=== PATIENT | female | born 1940 | race Caucasian/White ===

== ENCOUNTER 2017-08-04 13:45 | Inpatient (IN) | payer MEDICARE ==
[2017-08-04 14:51] LABS: Urine Appearance Cloudy; Urine Blood Negative (Negative); Urine Color Yellow; Urine Ketones Negative (Negative); Urine Protein Negative (Negative); Urine Specific Gravity 1.013 (1.010-1.030); Urine Urobilinogen Negative (Negative)
[2017-08-04 15:04] LABS: ABS Basophils 0.1 10^3/ul (0-0.2); ABS Eosinophils 0 10^3/ul (0-0.6); ABS Lymphocytes 0.5 10^3/ul (1.0-4.8); ABS Monocytes 0.9 10^3/ul (0-0.8); ABS Neutrophils 10.8 10^3/ul (1.5-7.7); ABS Nucleated RBC 0 10^3/ul; Eosinophil % 0.2 % (0-6); Hematocrit 42 % (35-47); Hemoglobin 13.7 g/dl (12.0-16.0); Lymphocyte % 3.9 % (25-47); Mean Corpuscular HGB Conc 33 g/dl (31-36); Mean Corpuscular Hemoglobin 29 pg (27-31); Mean Corpuscular Volume 89 fL (80-97); Mean Platelet Volume 9.6 um3 (7.4-10.4); Nucleated Red Blood Cells % 0; Platelet Count 208 10^3/ul (150-450); Red Blood Count 4.66 10^6/ul (4.0-5.4); Red Cell Distribution Width 16 % (10.5-15); White Blood Count 12.3 10^3/ul (3.5-10.8)
[2017-08-04 15:13] LABS: INR 1.07 (0.77-1.02)
--- NOTE | 2017-08-04 15:38 | RAD ---
INDICATION: Shortness of breath. COMPARISON: Chest x-ray dated January 15, 2017 TECHNIQUE: Single AP portable view of the chest was obtained. FINDINGS: Image quality is compromised due to the relative inferiority of a portable chest x-ray. The heart and mediastinum exhibit normal size and contour. The pulmonary vasculature appears mildly engorged and indistinct relative to the previous chest x-ray. The lungs are otherwise grossly clear. Visualized bones are normal for the patient's age. IMPRESSION: Chest x-ray findings could be due to pulmonary edema
[2017-08-04] MEDS ORDERED: Acetaminophen TAB* 325 MG PO ONE (16:10)
[2017-08-04] MEDS ORDERED: NS 0.9% 1000 ML* 1,000 ML IV ONE ×2 (16:10)
--- NOTE | 2017-08-04 17:16 | ED ---
Macy Escobar Julia, scribed for Antonio Rooney MD on 08/04/17 at 1421 . Complex/Multi-Sys Presentation - HPI Summary HPI Summary: This patient is a 77 year old [facility] [place] due to weakness and a fall while transporting to a wheelchair in her [facility] lives. Her family states that the home recently informed them that she has been weak and has been using a wheelchair. Son states that she typically walks. He states that yesterday a cough developed and she seemed more alert then. Patient denies any pain. Reports SOB. Patient lives in fci due to "psychosis and delusions". History of hospitalizations for mental health tx. - History Of Current Complaint Chief Complaint: EDWeakness Time Seen by Provider: 08/04/17 14:10 Hx Obtained From: Patient Onset/Duration: Lasting Days Timing: Constant Location: Negative Associated Signs And Symptoms: Positive: Decreased Responsiveness, Weakness, SOB , Other - fall - Allergies/Home Medications Allergies/Adverse Reactions: Allergies Allergy/AdvReac Type Severity Reaction Status Date / Time bee venom protein (honey bee) Allergy Swelling Verified 08/04/17 14:04 Of Face,Lips,& Throat Penicillins Allergy Anaphylatic Verified 08/04/17 14:04 Shock shrimp Allergy Vomiting Verified 08/04/17 14:04 Home Medications: Home Medications Divalproex DR TAB(*) [Neda CLEARY TAB(*)] 250 mg PO QAM 08/04/17 [History Confirmed 08/04/17] Divalproex DR TAB(*) [Neda CLEARY(*)] 500 mg PO BEDTIME 08/04/17 [History Confirmed 08/04/17] FLUoxetine CAP* [PROzac CAP*] 10 mg PO QAM 08/04/17 [History Confirmed 08/04/17] OLANzapine TAB* [Zyprexa 10 MG TAB*] 15 mg PO BEDTIME 08/04/17 [History Confirmed 08/04/17] PMH/Surg Hx/FS Hx/Imm Hx Cardiovascular History: Reports: Hx Congestive Heart Failure, Hx Hypertension Denies: Hx Pacemaker/ICD Musculoskeletal History: Denies: Hx Rheumatoid Arthritis, Hx Osteoporosis Sensory History: Reports: Hx Contacts or Glasses, Hx Macular Degeneration Denies: Hx Hearing Aid Opthamlomology History: Reports: Hx Contacts or Glasses, Hx Macular Degeneration Psychiatric History: Reports: Hx Anxiety, Hx Schizophrenia, Hx Bipolar Disorder , Other Psychiatric Issues/Disorders - "psychosis" Denies: Hx Eating Disorder, Hx Panic Disorder, Hx of Violent Episodes Against Others - Cancer History Hx Chemotherapy: No Hx Radiation Therapy: No - Surgical History Surgery Procedure, Year, and Place: SHOULDER SURGERY AGE 26 Infectious Disease History: No Infectious Disease History: Denies: Hx Clostridium Difficile, Hx Hepatitis, Hx Human Immunodeficiency Virus (HIV), Hx of Known/Suspected MRSA, Hx Shingles, Hx Tuberculosis, Traveled Outside the [place] in Last 30 Days - Social History Alcohol Use: None Substance Use Type: Reports: None Smoking Status (MU): Never Smoked Tobacco Review of Systems Positive: Shortness Of Breath Negative: Myalgia Positive: Weakness All Other Systems Reviewed And Are Negative: Yes Physical Exam - Summary Physical Exam Summary: VITAL SIGNS: Reviewed. GENERAL: Patient is a obese elderly female who appears weak. Patient appears to be in respiratory distress on nasal cannula. HEAD AND FACE: No signs of trauma. No ecchymosis, hematomas or skull depressions. No sinus tenderness. EYES: PERRLA, EOMI x 2, No injected conjunctiva, no nystagmus. EARS: Hearing grossly intact. Ear canals and tympanic membranes are within normal limits. MOUTH: Oropharynx within normal limits. NECK: Supple, trachea is midline, no adenopathy, no JVD, no carotid bruit, no c- spine tenderness, neck with full ROM. CHEST: Symmetric, no tenderness at palpation LUNGS: Crackles in bilateral bases CVS: Regular rate and rhythm, S1 and S2 present, no murmurs or gallops appreciated. ABDOMEN: Soft, non-tender. No signs of distention. No rebound no guarding, and no masses palpated. Bowel sounds are normal. EXTREMITIES: FROM in all major joints, no edema, no cyanosis or clubbing. NEURO: Alert and oriented x 3. No acute neurological deficits. Speech is normal and follows commands. SKIN: Dry and warm Triage Information Reviewed: Yes Vital Signs On Initial Exam: Initial Vitals Temp Pulse Resp BP Pulse Ox 100.7 F 98 25 176/87 97 08/04/17 13:57 08/04/17 13:57 08/04/17 13:57 08/04/17 13:57 08/04/17 13:57 Vital Signs Reviewed: Yes Diagnostics - Vital Signs Vital Signs Temp Pulse Resp BP Pulse Ox 08/04/17 14:01 97 29 97 08/04/17 13:59 103 176/87 98 08/04/17 13:57 100.7 F 98 25 176/87 97 - Laboratory Lab Results: Lab Results 08/04/17 08/04/17 08/04/17 Range/Units 14:37 14:53 14:53 WBC 12.3 H (3.5-10.8) 10^3/ul RBC 4.66 (4.0-5.4) 10^6/ul Hgb 13.7 (12.0-16.0) g/dl Hct 42 (35-47) % MCV 89 (80-97) fL MCH 29 (27-31) pg MCHC 33 (31-36) g/dl RDW 16 H (10.5-15) % Plt Count 208 (150-450) 10^3/ul MPV 9.6 (7.4-10.4) um3 Neut % (Auto) 87.9 H (38-83) % Lymph % (Auto) 3.9 L (25-47) % Smith % (Auto) 7.6 H (0-7) % Eos % (Auto) 0.2 (0-6) % Baso % (Auto) 0.4 (0-2) % Absolute Neuts (auto) 10.8 H (1.5-7.7) 10^3/ul Absolute Lymphs (auto) 0.5 L (1.0-4.8) 10^3/ul Absolute Monos (auto) 0.9 H (0-0.8) 10^3/ul Absolute Eos (auto) 0 (0-0.6) 10^3/ul Absolute Basos (auto) 0.1 (0-0.2) 10^3/ul Absolute Nucleated RBC 0 10^3/ul Nucleated RBC % 0 ESR 53 H (0-40) mm/Hr INR (Anticoag Therapy) 1.07 H (0.77-1.02) APTT 26.1 (26.0-36.3) seconds Sodium (139-145) mmol/L Potassium (3.5-5.0) mmol/L Chloride (101-111) mmol/L Carbon Dioxide (22-32) mmol/L Anion Gap (2-11) mmol/L BUN (6-24) mg/dL Creatinine (0.51-0.95) mg/dL Est GFR ( Amer) (>60) Est GFR (Non-Af Amer) (>60) BUN/Creatinine Ratio (8-20) Glucose (70-100) mg/dL Lactic Acid (0.5-2.0) mmol/L Calcium (8.6-10.3) mg/dL Total Bilirubin (0.2-1.0) mg/dL AST (13-39) U/L ALT (7-52) U/L Alkaline Phosphatase (34-104) U/L Total Creatine Kinase (10-223) U/L Troponin I (<0.04) ng/mL C-Reactive Protein (< 5.00) mg/L B-Natriuretic Peptide ( - 100) pg/mL Total Protein (6.4-8.9) g/dL Albumin (3.2-5.2) g/dL Globulin (2-4) g/dL Albumin/Globulin Ratio (1-3) Urine Color Yellow Urine Appearance Cloudy Urine pH 7.0 (5-9) Ur Specific [place] 1.013 (1.010-1.030) Urine Protein Negative (Negative) Urine Ketones Negative (Negative) Urine Blood Negative (Negative) Urine Nitrate Positive A (Negative) Urine Bilirubin Negative (Negative) Urine Urobilinogen Negative (Negative) Ur Leukocyte Esterase Trace A (Negative) Urine WBC (Auto) 3+(>20/hpf) A (Absent) Urine RBC (Auto) 2+(6-10/hpf) A (Absent) Ur Squamous Epith Cells Present A (Absent) Urine Bacteria 1+ A (Absent) Urine Glucose Negative (Negative) Blood Type Antibody Screen 08/04/17 08/04/17 08/04/17 Range/Units 14:53 14:53 14:54 WBC (3.5-10.8) 10^3/ul RBC (4.0-5.4) 10^6/ul Hgb (12.0-16.0) g/dl Hct (35-47) % MCV (80-97) fL MCH (27-31) pg MCHC (31-36) g/dl RDW (10.5-15) % Plt Count (150-450) 10^3/ul MPV (7.4-10.4) um3 Neut % (Auto) (38-83) % Lymph % (Auto) (25-47) % Smith % (Auto) (0-7) % Eos % (Auto) (0-6) % Baso % (Auto) (0-2) % Absolute Neuts (auto) (1.5-7.7) 10^3/ul Absolute Lymphs (auto) (1.0-4.8) 10^3/ul Absolute Monos (auto) (0-0.8) 10^3/ul Absolute Eos (auto) (0-0.6) 10^3/ul Absolute Basos (auto) (0-0.2) 10^3/ul Absolute Nucleated RBC 10^3/ul Nucleated RBC % ESR (0-40) mm/Hr INR (Anticoag Therapy) (0.77-1.02) APTT (26.0-36.3) seconds Sodium 136 L (139-145) mmol/L Potassium 4.3 (3.5-5.0) mmol/L Chloride 99 L (101-111) mmol/L Carbon Dioxide 27 (22-32) mmol/L Anion Gap 10 (2-11) mmol/L BUN 18 (6-24) mg/dL Creatinine 1.15 H (0.51-0.95) mg/dL Est GFR ( Amer) 59.2 (>60) Est GFR (Non-Af Amer) 46.0 (>60) BUN/Creatinine Ratio 15.7 (8-20) Glucose 144 H (70-100) mg/dL Lactic Acid 1.1 (0.5-2.0) mmol/L Calcium 9.0 (8.6-10.3) mg/dL Total Bilirubin 0.40 (0.2-1.0) mg/dL AST 14 (13-39) U/L ALT 12 (7-52) U/L Alkaline Phosphatase 106 H (34-104) U/L Total Creatine Kinase 73 (10-223) U/L Troponin I 0.01 (<0.04) ng/mL C-Reactive Protein 54.10 H (< 5.00) mg/L B-Natriuretic Peptide ( - 100) pg/mL Total Protein 8.2 (6.4-8.9) g/dL Albumin 3.5 (3.2-5.2) g/dL Globulin 4.7 H (2-4) g/dL Albumin/Globulin Ratio 0.7 L (1-3) Urine Color Urine Appearance Urine pH (5-9) Ur Specific [place] (1.010-1.030) Urine Protein (Negative) Urine Ketones (Negative) Urine Blood (Negative) Urine Nitrate (Negative) Urine Bilirubin (Negative) Urine Urobilinogen (Negative) Ur Leukocyte Esterase (Negative) Urine WBC (Auto) (Absent) Urine RBC (Auto) (Absent) Ur Squamous Epith Cells (Absent) Urine Bacteria (Absent) Urine Glucose (Negative) Blood Type O Positive Antibody Screen Negative 08/04/17 Range/Units 14:54 WBC (3.5-10.8) 10^3/ul RBC (4.0-5.4) 10^6/ul Hgb (12.0-16.0) g/dl Hct (35-47) % MCV (80-97) fL MCH (27-31) pg MCHC (31-36) g/dl RDW (10.5-15) % Plt Count (150-450) 10^3/ul MPV (7.4-10.4) um3 Neut % (Auto) (38-83) % Lymph % (Auto) (25-47) % Smith % (Auto) (0-7) % Eos % (Auto) (0-6) % Baso % (Auto) (0-2) % Absolute Neuts (auto) (1.5-7.7) 10^3/ul Absolute Lymphs (auto) (1.0-4.8) 10^3/ul Absolute Monos (auto) (0-0.8) 10^3/ul Absolute Eos (auto) (0-0.6) 10^3/ul Absolute Basos (auto) (0-0.2) 10^3/ul Absolute Nucleated RBC 10^3/ul Nucleated RBC % ESR (0-40) mm/Hr INR (Anticoag Therapy) (0.77-1.02) APTT (26.0-36.3) seconds Sodium (139-145) mmol/L Potassium (3.5-5.0) mmol/L Chloride (101-111) mmol/L Carbon Dioxide (22-32) mmol/L Anion Gap (2-11) mmol/L BUN (6-24) mg/dL Creatinine (0.51-0.95) mg/dL Est GFR ( Amer) (>60) Est GFR (Non-Af Amer) (>60) BUN/Creatinine Ratio (8-20) Glucose (70-100) mg/dL Lactic Acid (0.5-2.0) mmol/L Calcium (8.6-10.3) mg/dL Total Bilirubin (0.2-1.0) mg/dL AST (13-39) U/L ALT (7-52) U/L Alkaline Phosphatase (34-104) U/L Total Creatine Kinase (10-223) U/L Troponin I (<0.04) ng/mL C-Reactive Protein (< 5.00) mg/L B-Natriuretic Peptide 46 ( - 100) pg/mL Total Protein (6.4-8.9) g/dL Albumin (3.2-5.2) g/dL Globulin (2-4) g/dL Albumin/Globulin Ratio (1-3) Urine Color Urine Appearance Urine pH (5-9) Ur Specific [place] (1.010-1.030) Urine Protein (Negative) Urine Ketones (Negative) Urine Blood (Negative) Urine Nitrate (Negative) Urine Bilirubin (Negative) Urine Urobilinogen (Negative) Ur Leukocyte Esterase (Negative) Urine WBC (Auto) (Absent) Urine RBC (Auto) (Absent) Ur Squamous Epith Cells (Absent) Urine Bacteria (Absent) Urine Glucose (Negative) Blood Type Antibody Screen Result Diagrams: 08/04/17 14:53 08/04/17 14:53 Lab Statement: Any lab studies that have been ordered have been reviewed, and results considered in the medical decision making process. - Radiology CXR Radiology Interpretation Completed By: Radiologist - Chest x-ray findings could be due to pulmonary edema. ED Physician has reviewed this report. - EKG 1435 Cardiac Rate: NL EKG Rhythm: Sinus Rhythm - 97 BPM EKG Interpretation: no ST elevations EKG Comparison: No Significant Change - 08/03/2012 Complex Multi-Symp Course/Dx Assessment/Plan: Blood significant for WBCs of 12.3, there is no bands, sodium 136, creatinine 1.15, glucose 144, CRP of 54, urinalysis is positive for nitrates. Chest x-ray impression: Findings could be due to pulmonary edema. In the ED course the patient was given IV fluids, the patient was given Tylenol for the fever, she was given Rocephin for the UTI. I discussed my physical exam , and isnt associated with Dr. Deleon who accepted the patient for admission. Patient is hemodynamically stable. - Diagnoses Provider Diagnoses: UTI (urinary tract infection) - Physician Notifications Discussed Care Of Patient With: Mallory Deleon - hospitalist Time Discussed With Above Provider: 16:30 Instructed by Provider To: Admit As Inpatient Discharge - Sign-Out/Discharge Documenting (check all that apply): Discharge/Admit/Transfer - Discharge Plan Condition: Stable Disposition: ADMITTED TO [facility] Referrals: Antonio Jade MD [Primary Care Provider] - - Billing Disposition and Condition Condition: STABLE Disposition: Admitted to [facility] The documentation as recorded by the Macy john Julia accurately reflects the service I personally performed and the decisions made by me, Antonio Rooney MD.
[2017-08-04] MEDS ORDERED: NS 0.9% 1000 ML* 1,000 ML IV SCH (17:30)
[2017-08-04] MEDS ORDERED: hydrALAZINE IV* 20 MG/ML VIAL IV SLOW PU PRN (17:56)
[2017-08-04] MEDS: cefTRIAXone(*) 1 GM in NS 0.9% 50 ML* 50 ML IVPB SCH (18:10)
--- NOTE | 2017-08-04 19:32 | HP ---
CC: Dr. Trinity Li * HISTORY AND PHYSICAL: DATE OF ADMISSION: 08/04/17 PRIMARY CARE PROVIDER: Dr. Trinity Li. ATTENDING PHYSICIAN: Mallory Deleon MD * (dictated by Madisyn Stuart NP) CHIEF COMPLAINT: Fall and generalized weakness. HISTORY OF PRESENT ILLNESS: Ms. Wylie is a 77-year-old female with past medical history significant for psychosis, macular degeneration, diastolic dysfunction and nonischemic cardiomyopathy, hyperlipidemia, and aortic stenosis who had been in her usual state of health yesterday. The patient has been having increased shortness of breath with exertion since at least December 2016 , if not longer. She has recently started seeing a new primary care provider who referred her to Dr. Loo. The patient saw Dr. Loo in consultation yesterday on 08/03/17 at which time it was felt that she had possible obstructive sleep apnea and it was recommended that she undergo a formal sleep study, as she had been found to have nocturnal hypoxia. In regards to the patient's shortness of breath, it was recommended that she have formal pulmonary function tests and an echo to rule out any cardiac causes for her shortness of breath. Last evening, it was reported that the patient started having generalized weakness. Today while getting up from her wheelchair, she felt from a standing position when she lost her balance. She denies any injury. She denies any fevers, chills, chest pain. She reports nausea this morning. Denies diarrhea, any urinary symptoms such as dysuria or urgency, but she reports at baseline urinating every 2 hours. She reports an okay appetite and eating and drinking okay. She also had stomach bug vomiting a few weeks ago , but had been feeling better until earlier today. Due to her weakness and her fall, she came to the hospital for further evaluation. While in the emergency room, the patient had a urinalysis significant for nitrites positive, leukocyte esterase trace, wbc's 3+, rbc's 2+, squamous epithelial cells present, 1+ bacteria. She had blood cultures drawn. She had an EKG showing a sinus rhythm at a rate of 97, no acute signs of ischemia. She had a chest x-ray showing findings that could be secondary to pulmonary edema. She was tachycardic with heart rates in the 90s to 100s. During her stay, she became febrile with a temperature up to 102.2. She was also noted to be hypertensive with systolic blood pressures in the 170s. She had a period of hypoxia and was placed on oxygen. She had a lactic acid of 1.1, ESR of 53, CRP of 54 and the hospitalists were asked to evaluate the patient for admission. PAST MEDICAL HISTORY: 1. Psychosis. 2. Macular degeneration. 3. Diastolic dysfunction. 4. Nonischemic cardiomyopathy. 5. Hyperlipidemia. 6. Aortic stenosis. PAST SURGICAL HISTORY: 1. Status post shoulder surgery. 2. Status post tonsillectomy. 3. Status post neck surgery. HOME MEDICATIONS: Include: 1. Zyprexa 15 mg oral daily at bedtime. 2. Prozac 10 mg oral every morning. 3. Depakote 250 mg oral every morning and 500 mg oral every day at bedtime. ALLERGIES: PENICILLIN causes hives, bees and shrimp. FAMILY HISTORY: The patient denies any family history of coronary artery disease, diabetes, cancer. SOCIAL HISTORY: The patient denies tobacco, alcohol, or recreational drug use. Her son, Nba Wylie, will be her surrogate decision maker in the event she is unable to make decisions for herself. REVIEW OF SYSTEMS: I performed an 11-point review of systems. All the pertinent positives and negatives are mentioned in the history of present illness. The remaining review of systems is negative. PHYSICAL EXAMINATION GENERAL APPEARANCE: The patient is alert, pleasant, ill appearing, but in no acute distress. VITAL SIGNS: Temperature 102.2, heart rate 96, respiratory rate 28, O2 sat 99% on room air, blood pressure 170/96. HEENT: Normocephalic, atraumatic. Pupils are equal and reactive to light. Extraocular movements are intact. RESPIRATORY: There is no accessory muscle use. Lungs are clear to auscultation bilateral. CARDIOVASCULAR: Regular rate and rhythm. Tachycardic. S1, S2 present. There is a grade 2/6 systolic murmur heard best at the right upper sternal border. There are no rubs or gallops heard. ABDOMEN: Soft, nontender, nondistended. There are bowel sounds present x4. EXTREMITIES: There is trace bilateral lower extremity edema. DP and PT pulses are 2+ and symmetric. MUSCULOSKELETAL: There is no clubbing or cyanosis noted. The patient exhibits good strength in all extremities. NEUROLOGICAL: The patient is alert and oriented. Cranial nerves II through XII are grossly intact. PSYCHOLOGICAL: The patient is calm and cooperative. SKIN: There are no rashes or abnormalities seen. DIAGNOSTIC STUDIES/LABORATORY DATA: Sodium 136, potassium 4.3, chloride 99, CO2 of 27, BUN 18, creatinine 1.15, glucose 144. White blood cell count 12.3, hemoglobin 13.7, hematocrit 42, platelet count 208,000. ESR 53. INR 1.07 and lactic acid 1.1. CRP 54.10. Urinalysis significant for nitrites positive, leukocyte esterase trace, wbc's 3+ , rbc's 2+, squamous epithelial cells positive, 1+ bacteria. EKG shows a sinus rhythm, rate of 97. There are no acute signs of ischemia. This EKG is similar to previous from 08/13/12. Chest x-ray from today. Radiologist's impression: Chest x-ray findings could be due to pulmonary edema. IMPRESSION: Ms. Wylie is a 77-year-old female with past medical history significant for psychosis, macular degeneration, diastolic dysfunction, nonischemic cardiomyopathy, hyperlipidemia, and aortic stenosis who presents to the emergency room with complaints of fall and generalized weakness. She will be admitted as an inpatient for sepsis secondary to a urinary tract infection. ASSESSMENT/PLAN: 1. Sepsis secondary to urinary tract infection. The patient has received so far a liter of fluids in the emergency room. She is meeting systemic inflammatory response syndrome criteria with fever, tachycardia, tachypnea, and leukocytosis. She does not have an elevated white blood cell count at this time. In the setting of concern for heart failure, I am going to give the patient no further boluses and just give her gentle IV hydration. She had some findings consistent with possible pulmonary edema on her chest x-ray. At this time, she does not have crackles, but we will follow her lung sounds cautiously. I am going to give her IV ceftriaxone. She has a history of hives with PENICILLIN and we will monitor her closely for any adverse reactions to the ceftriaxone. We will recheck labs in the morning. She had blood cultures drawn while in the emergency room. 2. Acute kidney injury. I suspect this is secondary to the UTI. We will give gentle IV hydration and recheck labs in the morning. 3. Hisotry of nonischemic cardiomyopathy and diastolic dysfunction. The patient, according to her family, has recovered from this and no longer takes any medications. She will get daily weights, strict I's and O's. I am going to check an echocardiogram to evaluate for heart failure as she has been short of breath with exertion since at least December 2016 and she has some findings consistent with heart failure on chest x-ray. I am going to hold off on diuresis at this time as she has minimal bilateral lower extremity edema and no crackles. 4. Hypertension. She has been hypertensive in the emergency room, for now we will give hydralazine PRN and start medications accordingly in the morning after we have had time to observe her blood pressure trend. 5. History of hyperlipidemia. The patient is not currently on medications. 6. Aortic stenosis. Again, we are going to get an echocardiogram. We can evaluate her aortic stenosis. 7. History of psychosis and mental illness. The patient will be continued on her home Zyprexa, Prozac, and Depakote. 8. Fluids, electrolytes, and nutrition. The patient will be on a low sodium diet. 9. Code status. Full code. 10. DVT prophylaxis. Highest risk. The patient will have subcu heparin. I will hold on SCDs in the setting of history of heart failure. 11. Disposition. Inpatient. TIME SPENT: Time for this admission was approximately 60 minutes, greater than half of that was spent [id number] with the patient and family discussing medications, past medical history, and the events leading up to her arrival today, performing a physical examination. The case was reviewed with the attending, Dr. Deleon, who agrees with the plan of care. Reviewed by NICOLAS ARDON 08/05/17 1217 [id number]/[facility] #: [id number] JOEY
[2017-08-04] MEDS: OLANzapine TAB* 5 MG PO SCH (21:59)
[2017-08-04] MEDS: Heparin VIAL(*) 5000 UNITS/ML VIAL (FIVE THOUSAND) SUBCUT SCH (22:00)
[2017-08-04] MEDS: Divalproex DR TAB(*) 500 MG PO SCH (22:00)
[2017-08-05] MEDS: Heparin VIAL(*) 5000 UNITS/ML VIAL (FIVE THOUSAND) SUBCUT SCH ×3 (06:40→21:58)
[2017-08-05 06:51] LABS: ABS Basophils 0 10^3/ul (0-0.2); ABS Eosinophils 0 10^3/ul (0-0.6); ABS Lymphocytes 0.6 10^3/ul (1.0-4.8); ABS Monocytes 1.2 10^3/ul (0-0.8); ABS Neutrophils 7.7 10^3/ul (1.5-7.7); ABS Nucleated RBC 0 10^3/ul; Eosinophil % 0.1 % (0-6); Hematocrit 36 % (35-47); Lymphocyte % 6.4 % (25-47); Mean Corpuscular HGB Conc 34 g/dl (31-36); Mean Corpuscular Hemoglobin 30 pg (27-31); Mean Corpuscular Volume 89 fL (80-97); Mean Platelet Volume 9.7 um3 (7.4-10.4); Nucleated Red Blood Cells % 0.1; Platelet Count 159 10^3/ul (150-450); Red Blood Count 4.02 10^6/ul (4.0-5.4); Red Cell Distribution Width 16 % (10.5-15); White Blood Count 9.6 10^3/ul (3.5-10.8)
[2017-08-05 07:05] LABS: EGFR Non-African American 58.1 (>60)
[2017-08-05] MEDS: Acetaminophen TAB* 325 MG PO PRN (08:13)
[2017-08-05] MEDS: Divalproex DR TAB(*) 250 MG PO SCH (08:13)
[2017-08-05] MEDS: FLUoxetine CAP* 10 MG PO SCH (08:13)
--- NOTE | 2017-08-05 08:40 | ECHO ---
Patient: AAKASH BETANCUR [facility] Rec#: [id number] : 1940 Date: 08/05/2017 Age: 77y Height: 165.1 cm / 65.0 in Weight: 108.86 kg / 239.9 lbs Sex: F BSA: 2.14 Room#: 407 Admit Date#: 08/04/2017 Type: Inpatient Referring: Madisyn Castro NP Reading: David Prescott DO Labor Arbitrator: Madisyn Degroot RDCS CC: Antonio Jade MD Transthoracic Echocardiogram Indication: Shortness of breath BP: 159/68 HR: 86 Rhythm: NSR with PVCs Findings History: Macular degeneration, diastolic dysfunction, nonischemic cardiomyopathy, HLD, aortic stenosis. Technical Comments: The study quality is fair. The study is technically limited due to poor apical windows. Completed at 0815. Left Ventricle: The left ventricular chamber size is normal. Mild concentric left ventricular hypertrophy is observed. Global left ventricular wall motion and contractility are within normal limits. There is normal left ventricular systolic function. The estimated ejection fraction is 55-60%. Abnormal left ventricular diastolic function is observed. Left Atrium: The left atrium is mildly dilated. Right Ventricle: The right ventricular chamber size and systolic function are within normal limits. Right Atrium: The right atrium is mildly dilated. Aortic Valve: The aortic valve is trileaflet. Mild aortic leaflet calcification is visualized. Systolic excursion of the aortic valve cusps is reduced. There is aortic annular calcification.that is mild There is a trace of aortic regurgitation. There is mild aortic stenosis. The mean gradient of the aortic valve is 13.43 mmHg. The peak instantaneous gradient of the aortic valve is 21.04 mmHg. The aortic valve area, by VTI's, is calculated at 1.7 cm2. Mitral Valve: Mild mitral annular calcification present. The mitral valve leaflets are mildly thickened. There is a trace of mitral regurgitation. There is mild mitral stenosis. The mean gradient across the mitral valve is 5.02 mmHg. Tricuspid Valve: The tricuspid valve leaflets are normal. There is trace tricuspid regurgitation. No pulmonary hypertension is noted. There is no tricuspid stenosis. Pulmonic Valve: The pulmonic valve appears normal. There is a trace pulmonic regurgitation. There is no pulmonic stenosis. Pericardium: There is no significant pericardial effusion. Aorta: There is mild dilatation of the ascending aorta. There is no dilatation of the aortic arch. There is mild dilatation of the aortic root. Pulmonary Artery: The main pulmonary artery is not well visualized. Venous: The inferior vena cava appears normal in size. There is a greater than 50% respiratory change in the inferior vena cava dimension. Conclusions The left ventricular chamber size is normal. Mild concentric left ventricular hypertrophy is observed. There is normal left ventricular systolic function. The estimated ejection fraction is 55-60%. The left atrium is mildly dilated. The right ventricular chamber size and systolic function are within normal limits. There is mild aortic stenosis. There is borderline mild non-rheumatic mitral stenosis. No pulmonary hypertension is noted. None prior for comparison at time of interpretation Measurements Name Value Normal Range RVIDd (AP) 2D 2.7 cm (0.9 - 2.6) RVAW (2D) 0.6 cm (0.2 - 0.5) RAd ISD 4CH 5 cm (3.4 - 4.9) RA (A4C)W 3.8 cm (2.9 - 4.6) IVSd (2D) 1.3 cm (0.6 - 1) LVPWd (2D) 1.2 cm (0.6 - 1) LVIDd (2D) 5.3 cm (3.6 - 5.4) LVIDs (2D) 3.1 cm - LV FS (2D) 42 % (25 - 45) Aortic Annulus 1.6 cm (1.4 - 2.6) Ao root diameter (2D) 3.6 cm (2.1 - 3.5) Ascending Ao 3.7 cm (2.1 - 3.4) Aortic arch 2.9 cm (1.8 - 3.4) LA dimension (AP) 2D 3.6 cm (2.3 - 3.8) LAd ISD 4CH 5.7 cm (2.9 - 5.3) LA ISD 4CH W 4.4 cm (2.5 - 4.5) Name Value Normal Range LA ESV SP 4CH (A/L) 62 ml - LA ESV SP 2CH (A/L) 91 ml - LA ESV BP (A/L) 80 ml - LA ESV BP (A/L) index 37 ml/m2 - LA ESV SP 4CH (MOD) 57 ml - LA ESV SP 2CH (MOD) 85 ml - Name Value Normal Range MV E-wave Vmax 1.2 m/sec - MV deceleration time 213.02 msec - MV A-wave Vmax 1.47 m/sec - MV E:A ratio 0.83 ratio - LV septal e' Vmax 0.06 m/sec - LV lateral e' Vmax 0.07 m/sec - LV E:e' septal ratio 20 ratio - LV E:e' lateral ratio 17.14 ratio - Name Value Normal Range AV Vmax 2.3 m/sec - AV VTI 43.7 cm - AV peak gradient 21.04 mmHg - AV mean gradient 13.43 mmHg - LVOT diameter 2 cm - LVOT Vmax 1.09 m/sec - LVOT VTI 24.1 cm - LVOT peak gradient 4.76 mmHg - LVOT mean gradient 2.94 mmHg - DOI (VTI) 0.55 ratio - ELLIE (continuity VTI) 1.7 cm2 - JOSE MANUEL Vmax 1.5 m/sec - Name Value Normal Range MV Vmax 1.49 m/sec - MV VTI 36.82 cm - MV mean gradient 5.02 mmHg - Name Value Normal Range TR Vmax 2.7 m/sec - TR peak gradient 29 mmHg - RAP 3 mmHg - RVSP 32 mmHg - IVC diameter 2.05 cm - Name Value Normal Range PV Vmax 1.4 m/sec - PV peak gradient 7.85 mmHg -
[2017-08-05] MEDS: cefTRIAXone(*) 1 GM in NS 0.9% 50 ML* 50 ML IVPB SCH (17:27)
--- NOTE | 2017-08-05 17:54 | PN ---
Subjective Date of Service: 08/05/17 Interval History: no complaints resting in bed. denies chest pain or shortness of breath. Denies abd pain, n/v/d. denies fever or chills Family History: Unchanged from Admission Social History: Unchanged from Admission Past Medical History: Unchanged from Admission Objective Active Medications: Acetaminophen (Tylenol Tab*) 650 mg PO Q4H PRN PRN Reason: FEVER/PAIN Last Admin: 08/05/17 08:13 Dose: 650 mg Divalproex Sodium (Depakote Dr Tab(*)) 250 mg PO QAM [facility] Last Admin: 08/05/17 08:13 Dose: 250 mg Divalproex Sodium (Depakote Dr Tab(*)) 500 mg PO BEDTIME [facility] Last Admin: 08/04/17 22:00 Dose: 500 mg Fluoxetine HCl (Prozac Cap*) 10 mg PO QAM [facility] Last Admin: 08/05/17 08:13 Dose: 10 mg Heparin Sodium (Porcine) (Heparin Vial(*)) 5,000 units SUBCUT Q8HR [facility] Last Admin: 08/05/17 14:28 Dose: 5,000 units Hydralazine HCl (Apresoline Iv*) 5 mg IV SLOW PU Q6H PRN PRN Reason: BLOOD PRESSURE Sodium Chloride (Ns 0.9% 1000 Ml*) 1,000 mls @ 75 mls/hr IV PER RATE [facility] Last Admin: 08/05/17 10:13 Dose: 75 mls/hr Ceftriaxone Sodium 1 gm/ (Sodium Chloride) 50 mls @ 200 mls/hr IVPB Q24H [facility] Last Admin: 08/05/17 17:27 Dose: 200 mls/hr Olanzapine (Zyprexa Tab*) 15 mg PO BEDTIME [facility] Last Admin: 08/04/17 21:59 Dose: 15 mg Vital Signs - 8 hr 08/05/17 08/05/17 11:16 15:27 Temperature 98.4 F 97.9 F Pulse Rate 80 84 Respiratory 16 18 Rate Blood Pressure 144/63 147/67 (mmHg) O2 Sat by Pulse 95 96 Oximetry Oxygen Devices in Use Now: None Appearance: obese, appears stated age, appears comfortable, no acute distress. Eyes: No Scleral Icterus Ears/Nose/Mouth/Throat: Clear Oropharnyx, Mucous Membranes Moist Neck: NL Appearance and Movements; NL JVP, Trachea Midline Respiratory: Symmetrical Chest Expansion and Respiratory Effort, Clear to Auscultation Cardiovascular: NL Sounds; No Murmurs; No JVD, No Edema Abdominal: NL Sounds; No Tenderness; No Distention Extremities: No Edema, No Clubbing, Cyanosis Skin: No Rash or Ulcers, No Nodules or Sclerosis Neurological: Alert and Oriented x 3 Nutrition: Taking PO's Result Diagrams: 08/05/17 06:37 08/05/17 06:37 Additional Lab and Data: Lab Results 08/04/17 08/04/17 08/04/17 Range/Units 14:37 14:53 14:53 WBC 12.3 H (3.5-10.8) 10^3/ul RBC 4.66 (4.0-5.4) 10^6/ul Hgb 13.7 (12.0-16.0) g/dl Hct 42 (35-47) % MCV 89 (80-97) fL MCH 29 (27-31) pg MCHC 33 (31-36) g/dl RDW 16 H (10.5-15) % Plt Count 208 (150-450) 10^3/ul MPV 9.6 (7.4-10.4) um3 Neut % (Auto) 87.9 H (38-83) % Lymph % (Auto) 3.9 L (25-47) % [place] % (Auto) 7.6 H (0-7) % Eos % (Auto) 0.2 (0-6) % Baso % (Auto) 0.4 (0-2) % Absolute Neuts (auto) 10.8 H (1.5-7.7) 10^3/ul Absolute Lymphs (auto) 0.5 L (1.0-4.8) 10^3/ul Absolute Monos (auto) 0.9 H (0-0.8) 10^3/ul Absolute Eos (auto) 0 (0-0.6) 10^3/ul Absolute Basos (auto) 0.1 (0-0.2) 10^3/ul Absolute Nucleated RBC 0 10^3/ul Nucleated RBC % 0 ESR 53 H (0-40) mm/Hr INR (Anticoag Therapy) 1.07 H (0.77-1.02) APTT 26.1 (26.0-36.3) seconds Sodium (139-145) mmol/L Potassium (3.5-5.0) mmol/L Chloride (101-111) mmol/L Carbon Dioxide (22-32) mmol/L Anion Gap (2-11) mmol/L BUN (6-24) mg/dL Creatinine (0.51-0.95) mg/dL Est GFR ( Amer) (>60) Est GFR (Non-Af Amer) (>60) BUN/Creatinine Ratio (8-20) Glucose (70-100) mg/dL Lactic Acid (0.5-2.0) mmol/L Calcium (8.6-10.3) mg/dL Total Bilirubin (0.2-1.0) mg/dL AST (13-39) U/L ALT (7-52) U/L Alkaline Phosphatase (34-104) U/L Total Creatine Kinase (10-223) U/L Troponin I (<0.04) ng/mL C-Reactive Protein (< 5.00) mg/L B-Natriuretic Peptide ( - 100) pg/mL Total Protein (6.4-8.9) g/dL Albumin (3.2-5.2) g/dL Globulin (2-4) g/dL Albumin/Globulin Ratio (1-3) Urine Color Yellow Urine Appearance Cloudy Urine pH 7.0 (5-9) Ur Specific [place] 1.013 (1.010-1.030) Urine Protein Negative (Negative) Urine Ketones Negative (Negative) Urine Blood Negative (Negative) Urine Nitrate Positive A (Negative) Urine Bilirubin Negative (Negative) Urine Urobilinogen Negative (Negative) Ur Leukocyte Esterase Trace A (Negative) Urine WBC (Auto) 3+(>20/hpf) A (Absent) Urine RBC (Auto) 2+(6-10/hpf) A (Absent) Ur Squamous Epith Cells Present A (Absent) Urine Bacteria 1+ A (Absent) Urine Glucose Negative (Negative) Blood Type Antibody Screen 08/04/17 08/04/17 08/04/17 Range/Units 14:53 14:53 14:54 WBC (3.5-10.8) 10^3/ul RBC (4.0-5.4) 10^6/ul Hgb (12.0-16.0) g/dl Hct (35-47) % MCV (80-97) fL MCH (27-31) pg MCHC (31-36) g/dl RDW (10.5-15) % Plt Count (150-450) 10^3/ul MPV (7.4-10.4) um3 Neut % (Auto) (38-83) % Lymph % (Auto) (25-47) % [place] % (Auto) (0-7) % Eos % (Auto) (0-6) % Baso % (Auto) (0-2) % Absolute Neuts (auto) (1.5-7.7) 10^3/ul Absolute Lymphs (auto) (1.0-4.8) 10^3/ul Absolute Monos (auto) (0-0.8) 10^3/ul Absolute Eos (auto) (0-0.6) 10^3/ul Absolute Basos (auto) (0-0.2) 10^3/ul Absolute Nucleated RBC 10^3/ul Nucleated RBC % ESR (0-40) mm/Hr INR (Anticoag Therapy) (0.77-1.02) APTT (26.0-36.3) seconds Sodium 136 L (139-145) mmol/L Potassium 4.3 (3.5-5.0) mmol/L Chloride 99 L (101-111) mmol/L Carbon Dioxide 27 (22-32) mmol/L Anion Gap 10 (2-11) mmol/L BUN 18 (6-24) mg/dL Creatinine 1.15 H (0.51-0.95) mg/dL Est GFR ( Amer) 59.2 (>60) Est GFR (Non-Af Amer) 46.0 (>60) BUN/Creatinine Ratio 15.7 (8-20) Glucose 144 H (70-100) mg/dL Lactic Acid 1.1 (0.5-2.0) mmol/L Calcium 9.0 (8.6-10.3) mg/dL Total Bilirubin 0.40 (0.2-1.0) mg/dL AST 14 (13-39) U/L ALT 12 (7-52) U/L Alkaline Phosphatase 106 H (34-104) U/L Total Creatine Kinase 73 (10-223) U/L Troponin I 0.01 (<0.04) ng/mL C-Reactive Protein 54.10 H (< 5.00) mg/L B-Natriuretic Peptide ( - 100) pg/mL Total Protein 8.2 (6.4-8.9) g/dL Albumin 3.5 (3.2-5.2) g/dL Globulin 4.7 H (2-4) g/dL Albumin/Globulin Ratio 0.7 L (1-3) Urine Color Urine Appearance Urine pH (5-9) Ur Specific [place] (1.010-1.030) Urine Protein (Negative) Urine Ketones (Negative) Urine Blood (Negative) Urine Nitrate (Negative) Urine Bilirubin (Negative) Urine Urobilinogen (Negative) Ur Leukocyte Esterase (Negative) Urine WBC (Auto) (Absent) Urine RBC (Auto) (Absent) Ur Squamous Epith Cells (Absent) Urine Bacteria (Absent) Urine Glucose (Negative) Blood Type O Positive Antibody Screen Negative 08/04/17 Range/Units 14:54 WBC (3.5-10.8) 10^3/ul RBC (4.0-5.4) 10^6/ul Hgb (12.0-16.0) g/dl Hct (35-47) % MCV (80-97) fL MCH (27-31) pg MCHC (31-36) g/dl RDW (10.5-15) % Plt Count (150-450) 10^3/ul MPV (7.4-10.4) um3 Neut % (Auto) (38-83) % Lymph % (Auto) (25-47) % [place] % (Auto) (0-7) % Eos % (Auto) (0-6) % Baso % (Auto) (0-2) % Absolute Neuts (auto) (1.5-7.7) 10^3/ul Absolute Lymphs (auto) (1.0-4.8) 10^3/ul Absolute Monos (auto) (0-0.8) 10^3/ul Absolute Eos (auto) (0-0.6) 10^3/ul Absolute Basos (auto) (0-0.2) 10^3/ul Absolute Nucleated RBC 10^3/ul Nucleated RBC % ESR (0-40) mm/Hr INR (Anticoag Therapy) (0.77-1.02) APTT (26.0-36.3) seconds Sodium (139-145) mmol/L Potassium (3.5-5.0) mmol/L Chloride (101-111) mmol/L Carbon Dioxide (22-32) mmol/L Anion Gap (2-11) mmol/L BUN (6-24) mg/dL Creatinine (0.51-0.95) mg/dL Est GFR ( Amer) (>60) Est GFR (Non-Af Amer) (>60) BUN/Creatinine Ratio (8-20) Glucose (70-100) mg/dL Lactic Acid (0.5-2.0) mmol/L Calcium (8.6-10.3) mg/dL Total Bilirubin (0.2-1.0) mg/dL AST (13-39) U/L ALT (7-52) U/L Alkaline Phosphatase (34-104) U/L Total Creatine Kinase (10-223) U/L Troponin I (<0.04) ng/mL C-Reactive Protein (< 5.00) mg/L B-Natriuretic Peptide 46 ( - 100) pg/mL Total Protein (6.4-8.9) g/dL Albumin (3.2-5.2) g/dL Globulin (2-4) g/dL Albumin/Globulin Ratio (1-3) Urine Color Urine Appearance Urine pH (5-9) Ur Specific [place] (1.010-1.030) Urine Protein (Negative) Urine Ketones (Negative) Urine Blood (Negative) Urine Nitrate (Negative) Urine Bilirubin (Negative) Urine Urobilinogen (Negative) Ur Leukocyte Esterase (Negative) Urine WBC (Auto) (Absent) Urine RBC (Auto) (Absent) Ur Squamous Epith Cells (Absent) Urine Bacteria (Absent) Urine Glucose (Negative) Blood Type Antibody Screen Assess/Plan/Problems-Billing Assessment: Ms. Wylie is a 77 y. o female with a hx of diastolic dysfunction, HLD, psychosis who presented to [facility] after a fall, she was found to have a UTI and sepsis. - Patient Problems (1) UTI (urinary tract infection) Current Visit: Yes Status: Acute Comment: Urine culture shows- e coli Patient with a fever on admission- afebrile today will continue ceftriaxone monitor vital signs (2) Sepsis Current Visit: Yes Status: Acute Comment: suspect this is related to UTI - Patient was hydrated with normal saline - will continue ceftriaxone for UTI - afebrile today (3) Psychosis Current Visit: Yes Status: Acute Comment: will continue zyprexa home medication (4) DVT prophylaxis Current Visit: Yes Status: Acute Code(s): RQT4526 - SNOMED Code(s): 820261586 Comment: heparin subQ (5) Full code status Current Visit: Yes Status: Acute Code(s): Z78.9 - OTHER SPECIFIED HEALTH STATUS SNOMED Code(s): 483109039
[2017-08-05] MEDS: Divalproex DR TAB(*) 500 MG PO SCH (21:57)
[2017-08-05] MEDS: OLANzapine TAB* 5 MG PO SCH (21:58)
[2017-08-06] MEDS: Acetaminophen TAB* 325 MG PO PRN (02:24)
[2017-08-06] MEDS: Heparin VIAL(*) 5000 UNITS/ML VIAL (FIVE THOUSAND) SUBCUT SCH ×3 (05:39→21:30)
[2017-08-06] MEDS: FLUoxetine CAP* 10 MG PO SCH (08:41)
[2017-08-06] MEDS: Divalproex DR TAB(*) 250 MG PO SCH (08:41)
[2017-08-06] MEDS: cefTRIAXone(*) 1 GM in NS 0.9% 50 ML* 50 ML IVPB SCH (17:18)
--- NOTE | 2017-08-06 17:52 | PN ---
Subjective Date of Service: 08/06/17 Interval History: Appear more fatigued today, patient states that she feel tired. Denies chest pain or shortness of breath. Denies abd pain n/v/d. Family History: Unchanged from Admission Social History: Unchanged from Admission Past Medical History: Unchanged from Admission Objective Active Medications: Acetaminophen (Tylenol Tab*) 650 mg PO Q4H PRN PRN Reason: FEVER/PAIN Last Admin: 08/06/17 02:24 Dose: 650 mg Divalproex Sodium (Depakote Dr Tab(*)) 250 mg PO QAM [facility] Last Admin: 08/06/17 08:41 Dose: 250 mg Divalproex Sodium (Depakote Dr Tab(*)) 500 mg PO BEDTIME [facility] Last Admin: 08/05/17 21:57 Dose: 500 mg Fluoxetine HCl (Prozac Cap*) 10 mg PO QAM [facility] Last Admin: 08/06/17 08:41 Dose: 10 mg Heparin Sodium (Porcine) (Heparin Vial(*)) 5,000 units SUBCUT Q8HR [facility] Last Admin: 08/06/17 13:22 Dose: 5,000 units Hydralazine HCl (Apresoline Iv*) 5 mg IV SLOW PU Q6H PRN PRN Reason: BLOOD PRESSURE Ceftriaxone Sodium 1 gm/ (Sodium Chloride) 50 mls @ 200 mls/hr IVPB Q24H [facility] Last Admin: 08/06/17 17:18 Dose: 200 mls/hr Olanzapine (Zyprexa Tab*) 15 mg PO BEDTIME [facility] Last Admin: 08/05/17 21:58 Dose: 15 mg Vital Signs - 8 hr 08/06/17 08/06/17 10:56 15:48 Temperature 97.1 F 97.3 F Pulse Rate 69 72 Respiratory 14 20 Rate Blood Pressure 147/63 155/76 (mmHg) O2 Sat by Pulse 99 95 Oximetry Oxygen Devices in Use Now: None Appearance: appears stated age, fatigued resting in bed, no acute distress Eyes: No Scleral Icterus Ears/Nose/Mouth/Throat: Clear Oropharnyx, Mucous Membranes Moist Neck: NL Appearance and Movements; NL JVP, Trachea Midline Respiratory: Symmetrical Chest Expansion and Respiratory Effort, Clear to Auscultation Cardiovascular: NL Sounds; No Murmurs; No JVD, RRR, No Edema Abdominal: NL Sounds; No Tenderness; No Distention Skin: No Rash or Ulcers, No Nodules or Sclerosis Neurological: Alert and Oriented x 3, - - hard to keep awake while examining Nutrition: Taking PO's Result Diagrams: 08/05/17 06:37 08/05/17 06:37 Additional Lab and Data: Lab Results 08/04/17 08/04/17 08/04/17 Range/Units 14:37 14:53 14:53 WBC 12.3 H (3.5-10.8) 10^3/ul RBC 4.66 (4.0-5.4) 10^6/ul Hgb 13.7 (12.0-16.0) g/dl Hct 42 (35-47) % MCV 89 (80-97) fL MCH 29 (27-31) pg MCHC 33 (31-36) g/dl RDW 16 H (10.5-15) % Plt Count 208 (150-450) 10^3/ul MPV 9.6 (7.4-10.4) um3 Neut % (Auto) 87.9 H (38-83) % Lymph % (Auto) 3.9 L (25-47) % [place] % (Auto) 7.6 H (0-7) % Eos % (Auto) 0.2 (0-6) % Baso % (Auto) 0.4 (0-2) % Absolute Neuts (auto) 10.8 H (1.5-7.7) 10^3/ul Absolute Lymphs (auto) 0.5 L (1.0-4.8) 10^3/ul Absolute Monos (auto) 0.9 H (0-0.8) 10^3/ul Absolute Eos (auto) 0 (0-0.6) 10^3/ul Absolute Basos (auto) 0.1 (0-0.2) 10^3/ul Absolute Nucleated RBC 0 10^3/ul Nucleated RBC % 0 ESR 53 H (0-40) mm/Hr INR (Anticoag Therapy) 1.07 H (0.77-1.02) APTT 26.1 (26.0-36.3) seconds Sodium (139-145) mmol/L Potassium (3.5-5.0) mmol/L Chloride (101-111) mmol/L Carbon Dioxide (22-32) mmol/L Anion Gap (2-11) mmol/L BUN (6-24) mg/dL Creatinine (0.51-0.95) mg/dL Est GFR ( Amer) (>60) Est GFR (Non-Af Amer) (>60) BUN/Creatinine Ratio (8-20) Glucose (70-100) mg/dL Lactic Acid (0.5-2.0) mmol/L Calcium (8.6-10.3) mg/dL Total Bilirubin (0.2-1.0) mg/dL AST (13-39) U/L ALT (7-52) U/L Alkaline Phosphatase (34-104) U/L Total Creatine Kinase (10-223) U/L Troponin I (<0.04) ng/mL C-Reactive Protein (< 5.00) mg/L B-Natriuretic Peptide ( - 100) pg/mL Total Protein (6.4-8.9) g/dL Albumin (3.2-5.2) g/dL Globulin (2-4) g/dL Albumin/Globulin Ratio (1-3) Urine Color Yellow Urine Appearance Cloudy Urine pH 7.0 (5-9) Ur Specific [place] 1.013 (1.010-1.030) Urine Protein Negative (Negative) Urine Ketones Negative (Negative) Urine Blood Negative (Negative) Urine Nitrate Positive A (Negative) Urine Bilirubin Negative (Negative) Urine Urobilinogen Negative (Negative) Ur Leukocyte Esterase Trace A (Negative) Urine WBC (Auto) 3+(>20/hpf) A (Absent) Urine RBC (Auto) 2+(6-10/hpf) A (Absent) Ur Squamous Epith Cells Present A (Absent) Urine Bacteria 1+ A (Absent) Urine Glucose Negative (Negative) Blood Type Antibody Screen 08/04/17 08/04/17 08/04/17 Range/Units 14:53 14:53 14:54 WBC (3.5-10.8) 10^3/ul RBC (4.0-5.4) 10^6/ul Hgb (12.0-16.0) g/dl Hct (35-47) % MCV (80-97) fL MCH (27-31) pg MCHC (31-36) g/dl RDW (10.5-15) % Plt Count (150-450) 10^3/ul MPV (7.4-10.4) um3 Neut % (Auto) (38-83) % Lymph % (Auto) (25-47) % [place] % (Auto) (0-7) % Eos % (Auto) (0-6) % Baso % (Auto) (0-2) % Absolute Neuts (auto) (1.5-7.7) 10^3/ul Absolute Lymphs (auto) (1.0-4.8) 10^3/ul Absolute Monos (auto) (0-0.8) 10^3/ul Absolute Eos (auto) (0-0.6) 10^3/ul Absolute Basos (auto) (0-0.2) 10^3/ul Absolute Nucleated RBC 10^3/ul Nucleated RBC % ESR (0-40) mm/Hr INR (Anticoag Therapy) (0.77-1.02) APTT (26.0-36.3) seconds Sodium 136 L (139-145) mmol/L Potassium 4.3 (3.5-5.0) mmol/L Chloride 99 L (101-111) mmol/L Carbon Dioxide 27 (22-32) mmol/L Anion Gap 10 (2-11) mmol/L BUN 18 (6-24) mg/dL Creatinine 1.15 H (0.51-0.95) mg/dL Est GFR ( Amer) 59.2 (>60) Est GFR (Non-Af Amer) 46.0 (>60) BUN/Creatinine Ratio 15.7 (8-20) Glucose 144 H (70-100) mg/dL Lactic Acid 1.1 (0.5-2.0) mmol/L Calcium 9.0 (8.6-10.3) mg/dL Total Bilirubin 0.40 (0.2-1.0) mg/dL AST 14 (13-39) U/L ALT 12 (7-52) U/L Alkaline Phosphatase 106 H (34-104) U/L Total Creatine Kinase 73 (10-223) U/L Troponin I 0.01 (<0.04) ng/mL C-Reactive Protein 54.10 H (< 5.00) mg/L B-Natriuretic Peptide ( - 100) pg/mL Total Protein 8.2 (6.4-8.9) g/dL Albumin 3.5 (3.2-5.2) g/dL Globulin 4.7 H (2-4) g/dL Albumin/Globulin Ratio 0.7 L (1-3) Urine Color Urine Appearance Urine pH (5-9) Ur Specific [place] (1.010-1.030) Urine Protein (Negative) Urine Ketones (Negative) Urine Blood (Negative) Urine Nitrate (Negative) Urine Bilirubin (Negative) Urine Urobilinogen (Negative) Ur Leukocyte Esterase (Negative) Urine WBC (Auto) (Absent) Urine RBC (Auto) (Absent) Ur Squamous Epith Cells (Absent) Urine Bacteria (Absent) Urine Glucose (Negative) Blood Type O Positive Antibody Screen Negative 08/04/17 Range/Units 14:54 WBC (3.5-10.8) 10^3/ul RBC (4.0-5.4) 10^6/ul Hgb (12.0-16.0) g/dl Hct (35-47) % MCV (80-97) fL MCH (27-31) pg MCHC (31-36) g/dl RDW (10.5-15) % Plt Count (150-450) 10^3/ul MPV (7.4-10.4) um3 Neut % (Auto) (38-83) % Lymph % (Auto) (25-47) % [place] % (Auto) (0-7) % Eos % (Auto) (0-6) % Baso % (Auto) (0-2) % Absolute Neuts (auto) (1.5-7.7) 10^3/ul Absolute Lymphs (auto) (1.0-4.8) 10^3/ul Absolute Monos (auto) (0-0.8) 10^3/ul Absolute Eos (auto) (0-0.6) 10^3/ul Absolute Basos (auto) (0-0.2) 10^3/ul Absolute Nucleated RBC 10^3/ul Nucleated RBC % ESR (0-40) mm/Hr INR (Anticoag Therapy) (0.77-1.02) APTT (26.0-36.3) seconds Sodium (139-145) mmol/L Potassium (3.5-5.0) mmol/L Chloride (101-111) mmol/L Carbon Dioxide (22-32) mmol/L Anion Gap (2-11) mmol/L BUN (6-24) mg/dL Creatinine (0.51-0.95) mg/dL Est GFR ( Amer) (>60) Est GFR (Non-Af Amer) (>60) BUN/Creatinine Ratio (8-20) Glucose (70-100) mg/dL Lactic Acid (0.5-2.0) mmol/L Calcium (8.6-10.3) mg/dL Total Bilirubin (0.2-1.0) mg/dL AST (13-39) U/L ALT (7-52) U/L Alkaline Phosphatase (34-104) U/L Total Creatine Kinase (10-223) U/L Troponin I (<0.04) ng/mL C-Reactive Protein (< 5.00) mg/L B-Natriuretic Peptide 46 ( - 100) pg/mL Total Protein (6.4-8.9) g/dL Albumin (3.2-5.2) g/dL Globulin (2-4) g/dL Albumin/Globulin Ratio (1-3) Urine Color Urine Appearance Urine pH (5-9) Ur Specific [place] (1.010-1.030) Urine Protein (Negative) Urine Ketones (Negative) Urine Blood (Negative) Urine Nitrate (Negative) Urine Bilirubin (Negative) Urine Urobilinogen (Negative) Ur Leukocyte Esterase (Negative) Urine WBC (Auto) (Absent) Urine RBC (Auto) (Absent) Ur Squamous Epith Cells (Absent) Urine Bacteria (Absent) Urine Glucose (Negative) Blood Type Antibody Screen Assess/Plan/Problems-Billing Assessment: Ms. Wylie is a 77 y. o female with a hx of diastolic dysfunction, HLD, psychosis who presented to [facility] after a fall, she was found to have a UTI and sepsis. - Patient Problems (1) UTI (urinary tract infection) Current Visit: Yes Status: Acute Comment: Urine culture shows- e coli- susceptible to current antibiotic Patient with a fever on admission- remains afebrile today will continue ceftriaxone monitor vital signs (2) Sepsis Current Visit: Yes Status: Acute Comment: suspect this is related to UTI - Patient was hydrated with normal saline - will continue ceftriaxone for UTI - remains afebrile today (3) Psychosis Current Visit: Yes Status: Acute Comment: will continue zyprexa home medication (4) DVT prophylaxis Current Visit: Yes Status: Acute Code(s): [id number] - SNOMED Code(s): 303025913 Comment: heparin subQ (5) Full code status Current Visit: Yes Status: Acute Code(s): Z78.9 - OTHER SPECIFIED HEALTH STATUS SNOMED Code(s): 058380603 Status and Disposition: inpatient - possible discharge tomorrow - may need short term rehab
[2017-08-06] MEDS: OLANzapine TAB* 5 MG PO SCH (20:28)
[2017-08-06] MEDS: Divalproex DR TAB(*) 500 MG PO SCH (20:29)
[2017-08-07] MEDS: Heparin VIAL(*) 5000 UNITS/ML VIAL (FIVE THOUSAND) SUBCUT SCH ×2 (06:01→13:28)
[2017-08-07 06:05] LABS: ABS Basophils 0 10^3/ul (0-0.2); ABS Eosinophils 0.5 10^3/ul (0-0.6); ABS Lymphocytes 1.1 10^3/ul (1.0-4.8); ABS Monocytes 1.2 10^3/ul (0-0.8); ABS Nucleated RBC 0 10^3/ul; Eosinophil % 5.8 % (0-6); Hematocrit 35 % (35-47); Hemoglobin 11.8 g/dl (12.0-16.0); Lymphocyte % 14.3 % (25-47); Mean Corpuscular HGB Conc 33 g/dl (31-36); Mean Corpuscular Hemoglobin 30 pg (27-31); Mean Corpuscular Volume 89 fL (80-97); Mean Platelet Volume 9.4 um3 (7.4-10.4); Nucleated Red Blood Cells % 0; Platelet Count 183 10^3/ul (150-450); Red Blood Count 3.98 10^6/ul (4.00-5.40); Red Cell Distribution Width 16 % (10.5-15); White Blood Count 7.9 10^3/ul (3.5-10.8)
[2017-08-07 06:15] LABS: EGFR Non-African American 60.3 (>60)
[2017-08-07] MEDS: FLUoxetine CAP* 10 MG PO SCH (09:33)
[2017-08-07] MEDS: Divalproex DR TAB(*) 250 MG PO SCH (09:33)
[2017-08-07 17:11] VITALS: BP 158/71
--- NOTE | 2017-08-09 11:49 | DS ---
CC: Dr. Bernardo Rush DISCHARGE SUMMARY: DATE OF ADMISSION: 08/04/17 DATE OF DISCHARGE: 08/07/17 PROVIDER: Lina Salazar NP ATTENDING PHYSICIAN: Dr. Esmer Jameson (dictated by Lina Salazar NP) PRIMARY CARE PROVIDER: Dr. Bernardo Rush. PRIMARY DIAGNOSES: 1. Fall. 2. Urinary tract infection. SECONDARY DIAGNOSES: 1. Psychosis. 2. Macular degeneration. 3. Diastolic dysfunction and nonischemic cardiomyopathy. 4. Hyperlipidemia. STUDIES COMPLETED WHILE IN THE HOSPITAL: She had a chest x-ray on 08/04/17. Radiologist's impression : Chest x-ray findings could be due to pulmonary edema, appears to be mild. The lung lay are oth erwise grossly clear. The pulmonary vasculature appears mildly engorged and in distance relative to previous chest x- ray. The lungs are otherwise grossly clear. She had a transthoracic echocardiogra m on 08/04/17. Conclusion: The ventricular chamber is normal size. There is mild concentric left ve ntricular hypertrophy is observed. There is normal left ventricular systolic function. The estimate d ejection fraction is 55% to 60%, the left atrium is mildly dilated, the right ventricular chamber a nd systolic function is within normal limits. There is mild aortic stenosis. There is borderline mi ld nonrheumatic mitral stenosis. No pulmonary hypertension is noted. She had electrocardiogram on , which showed a sinus rhythm at a rate of 97. DISCHARGE MEDICATIONS: New home medication: Macrodantin 100 mg p.o. b.i.d. Continued home medicatio ns: 1. Zyprexa 15 mg p.o. at bedtime. 2. Prozac 10 mg p.o. q.p.m. 3. Depakote 500 mg p.o. at bedtime. 4. Depakote 250 mg p.o. q.a.m. 5. Acetaminophen 650 mg q.4 hours as needed for pain. HISTORY OF PRESENT ILLNESS AND HOSPITAL COURSE: Ms. Wylie is a 77-year-old female with a past med ical history significant for psychosis, macular degeneration, diastolic dysfunction, and nonischemic cardiomyopathy, and hyperlipidemia, who was in her usual state of health yesterday. The patient stat es she was having increased shortness of breath with exertion since last December 2016 if not longer. She has recently started seeing a new primary care provider, who referred her to Dr. Loo. She wa s seen by Dr. Loo in consultation yesterday, 08/03/17, at which time they felt it was possible paige t she has obstructive sleep apnea and recommended she undergo a formal sleep study, as she had been f ound to have nocturnal hypoxia. On the day of admission, the patient was getting up out of her wheel chair and fell from a standing position when she lost her balance. She denies any injury. She denie d any fever, chills, nausea, vomiting, or chest pain. She denied any diarrhea or urinary symptoms lugo ch as urgency or frequency, but does report baseline urinating every 2 hours. She reports that her a ppetite has been okay. She has been eating and drinking okay. She does report that she had a stomac h bug a couple of weeks prior to her admission, but is feeling better until earlier today. Due to th e weakness and fall, she came to the hospital for further evaluation. While in the emergency room, she had a urinalysis, which showed positive nitrites, leukocyte esterase , wbc's 3+, rbc's 2+, and squamous epithelial cells were present, bacteria was +1. She had a routine lab work and blood cultures drawn. During her time in the emergency room, she did spike a temperatu re to 102.2. While in the hospital, she was monitored and remained afebrile for the rest of her stay. She was sta rted on IV antibiotics. She received ceftriaxone 1 g IV x3 days for treatment of her urinary tract i nfection, her urine culture grew E. coli, which was susceptible to ceftriaxone. REVIEW OF SYSTEMS: On 08/07/17, she denies any chest pain or shortness of breath, denies any fever o r chills. Denies any abdominal pain, nausea, vomiting, or diarrhea. She denies any urinary frequenc y or urgency. She reports that she is feeling better. She is stronger. She reports that she is fee ling more awake. She denies any dizziness. She denies any cough or congestion. PHYSICAL EXAMINATION: General: The patient is alert and pleasant, appears to be comfortable, in no acute distress. Vital Signs: Temperature was 97.4, heart rate was 83, respirations were 20, O2 satur ation was 96%, blood pressure was 158/71. HEENT: Head is atraumatic, normocephalic. Pupils are equa l and reactive. Respiratory: Lungs are clear to auscultation bilaterally. There is no accessory mus nate use. Cardiovascular: Regular rate and rhythm. There are no murmurs, rubs, or gallops. Abdomen : Soft, nontender, nondistended. Bowel sounds are present x4. Extremities: There is edema. Pedal pulses are +2 bilaterally. Musculoskeletal: There is no clubbing or cyanosis. The patient has good strength in all 4 extremities. She is able to walk with a walker with a steady gait. Neurologic: Th e patient is alert and oriented x3. There is no focal neuro deficits noted. Psychological: The tc ent is calm and appropriate and cooperative. She does not appear to be having any distress at this t ren. Skin: There are no rashes or lesions. At this time, Ms. Wylie is stable for discharge back to [email or web address] DISCHARGE PLAN: Ms. Wylie will be discharged back to her group on [email or web address]. ACTIVITY: As tolerated. She should use a walker for walking. DIET: The patient should continue on a heart healthy diet, low sodium given her history of hypertens ion. 1. Fall. I suspect this is related to her urinary tract infection. I would recommend that she use a walker for balance and steadying her gait. 2. Urinary tract infection. She did receive ceftriaxone 1 g daily x3 days while in the hospital. S he should continue on nitrofurantoin 100 mg p.o. b.i.d. x5 days. She should follow up with her primar y care provider for repeat urinalysis. A urinary culture was completed while in the hospital and yesenia wed E. coli with susceptibility to nitrofurantoin. She was advised to drink plenty fluids and stay h ydrated. 3. Psychosis. She should continue her home medications, Zyprexa, Prozac, and Depakote. 4. She should follow up with her primary care physician in 4 to 7 days. 5. The patient was instructed to return to the emergency room for any chest pain, shortness of breat h, inability to urinate or difficulty urinating, and gross hematuria, fever or chills associated with increased urination or difficulty urinating. This is a summarization of her hospitalization. For further details, please see the entire medical r ecord. TIME SPENT: Time spent on this discharge was approximately 60 minutes, greater than half that time w as spent with the patient discussing discharge plans and implementing them. CONDITION ON DISCHARGE: Stable. LINA SALAZAR, RAILROAD TRACK INSPECTOR [id number]/CPS #: [id number]
== END 2017-08-07 17:20 | disposition home or self-care (01) | DRG 872 ==
LOC: ED 13:45 → MED 17:21
PROVIDERS: ADMIT Internal Medicine; ATTEND Hospitalist
DX: A41.9 Sepsis, unspecified organism (principal); N39.0 Urinary tract infection, site not specified; I50.30 Unspecified diastolic (congestive) heart failure; I42.8 Other cardiomyopathies; N17.9 Acute kidney failure, unspecified; B96.20 Unspecified Escherichia coli [E. coli] as the cause of diseases classified elsewhere; E78.5 Hyperlipidemia, unspecified; I10 Essential (primary) hypertension; F29 Unspecified psychosis not due to a substance or known physiological condition; H35.30 Unspecified macular degeneration; I35.0 Nonrheumatic aortic (valve) stenosis; W18.30XA Fall on same level, unspecified, initial encounter; Y92.009 Unspecified place in unspecified non-institutional (private) residence as the place of occurrence of the external cause; Z79.899 Other long term (current) drug therapy; Z91.030 Bee allergy status; Z88.0 Allergy status to penicillin; Z91.013 Allergy to seafood
CPT/HCPCS: 36415; 71045; 80048; 80053; 81003; 81015; 82550; 83605; 83880; 84145; 84484; 85025; 85610; 85652; 85730; 86140; 86850; 86900; 86901; 87040; 87077; 87086; 87186; 93005; 93306; 94762; 99284; A9270-GY; G8978-GP-CI; G8979-GP-CI; G8980-GP-CI; J0696; J1644

== ENCOUNTER 2018-11-08 03:34 | Emergency (ER) | payer MEDICARE ==
[2018-11-08] MEDS ORDERED: Ibuprofen TAB* 400 MG PO ONE (04:15)
[2018-11-08] MEDS ORDERED: Clindamycin CAP* 150 MG PO ONE (04:15)
--- NOTE | 2018-11-08 06:03 | ED ---
Shortness of Breath - History of Current Complaint Chief Complaint: EDGeneral Time Seen by Provider: 11/08/18 03:45 Hx Obtained From: Patient - Allergy/Home Medications Allergies/Adverse Reactions: Allergies Allergy/AdvReac Type Severity Reaction Status Date / Time bee venom protein (honey bee) Allergy Swelling Verified 08/04/17 14:04 Of Face,Lips,& Throat Penicillins Allergy Anaphylatic Verified 08/04/17 14:04 Shock shrimp Allergy Vomiting Verified 08/04/17 14:04 Home Medications: Home Medications Acetaminophen TAB* [Tylenol TAB*] 325 mg PO BID 11/08/18 [History Confirmed ] Amlodipine Besylate [Amlodipine 2.5 mg tab] 2.5 mg PO DAILY 11/08/18 [History Confirmed 11/08/18] Fluticasone/Vilanterol MDI(NF) [Breo Ellipta MDI 100/25(NF)] 1 puff INH DAILY [History Confirmed 11/08/18] PMH/Surg Hx/FS Hx/Imm Hx Cardiovascular History: Reports: Hx Congestive Heart Failure, Hx Hypercholesterolemia, Hx Hypertension Denies: Hx Pacemaker/ICD Respiratory History: Reports: Other Respiratory Problems/Disorders - increasing SOB since December 2016 Musculoskeletal History: Reports: Other Musculoskeletal History - shoulder surgery, age 26 Denies: Hx Rheumatoid Arthritis, Hx Osteoporosis Sensory History: Reports: Hx Contacts or Glasses, Hx Macular Degeneration - legally blind Denies: Hx Hearing Aid Opthamlomology History: Reports: Hx Contacts or Glasses, Hx Macular Degeneration - legally blind Psychiatric History: Reports: Hx Anxiety, Hx Schizophrenia, Hx Bipolar Disorder , Other Psychiatric Issues/Disorders - psychosis, delusions Denies: Hx Eating Disorder, Hx Panic Disorder, Hx of Violent Episodes Against Others - Cancer History Hx Chemotherapy: No Hx Radiation Therapy: No - Surgical History Surgery Procedure, Year, and Place: SHOULDER SURGERY AGE 26 Infectious Disease History: No Infectious Disease History: Denies: Hx Clostridium Difficile, Hx Hepatitis, Hx Human Immunodeficiency Virus (HIV), Hx of Known/Suspected MRSA, Hx Shingles, Hx Tuberculosis, Traveled Outside the [place] in Last 30 Days - Social History Alcohol Use: None Substance Use Type: Reports: None Smoking Status (MU): Never Smoked Tobacco Review of Systems All Other Systems Reviewed And Are Negative: Yes Physical Exam Triage Information Reviewed: Yes Vital Signs On Initial Exam: Initial Vitals Temp Pulse Resp BP Pulse Ox 98.3 F 86 20 142/101 95 11/08/18 03:36 11/08/18 03:36 11/08/18 03:36 11/08/18 03:36 11/08/18 03:36 Vital Signs Reviewed: Yes Diagnostics - Vital Signs Vital Signs Temp Pulse Resp BP Pulse Ox 11/08/18 05:38 95 116/70 96 11/08/18 05:29 88 93 11/08/18 05:07 89 155/68 93 11/08/18 03:36 98.3 F 86 20 142/101 95 - Laboratory Lab Statement: Any lab studies that have been ordered have been reviewed, and results considered in the medical decision making process. Discharge ED - Sign-Out/Discharge Documenting (check all that apply): Patient Departure Patient Received Moderate/Deep Sedation with Procedure: No - Discharge Plan Condition: Good Disposition: HOME Prescriptions: Clindamycin Cap(NF) [Clindamycin Cap 300 mg Cap(NF)] 300 mg PO Q6H 10 Days #40 cap Patient Education Materials: Dental Abscess (ED) Referrals: Trinity Li MD [Primary Care Provider] - - Attestation Statements Document Initiated by Scribe: Yes Documenting Scribe: Jossy Domingo Provider For Whom Christianibluke is Documenting (Include Credential): Dr. Desi Leal MD Scribe Attestation: Jossy Escobar scribed for Dr. Desi Leal MD on 11/08/18 at 0647. Status of Scribe Document: Ready
[2018-11-08 06:30] VITALS: BP 97/57
--- NOTE | 2018-11-08 07:46 | ED ---
Throat Pain/Nasal Congestion - HPI Summary HPI Summary: Patient is a 78 year old F arriving via ambulance to [facility] with a chief complaint of jaw pain since 11/05/18. Patient states that pain has gotten worse and now her jaw is swollen. Patient denies any similar episodes. Patient reports fever off and on. Patient also denies taking any medication for pain. Patient rates the pain 12/05. Symptoms aggravated by nothing. Symptoms alleviated by nothing. Home Medications Medication Instructions Recorded Confirmed Type Divalproex DR TAB(*) [Depakote DR 250 mg PO QAM 08/04/17 11/08/18 History TAB(*)] Divalproex DR TAB(*) [Depakote DR 500 mg PO BEDTIME 08/04/17 11/08/18 History TAB(*)] FLUoxetine CAP* [Prozac CAP*] 30 mg PO QAM 08/04/17 11/08/18 History OLANzapine TAB* [Zyprexa 10 MG 15 mg PO BEDTIME 08/04/17 11/08/18 History TAB*] Acetaminophen TAB* [Tylenol TAB*] 325 mg PO BID 11/08/18 11/08/18 History Amlodipine Besylate [Amlodipine 2.5 mg PO DAILY 11/08/18 11/08/18 History 2.5 mg tab] Clindamycin Cap(NF) [Clindamycin 300 mg PO Q6H 10 Days #40 cap 11/08/18 Rx Cap 300 mg Cap(NF)] Fluticasone/Vilanterol MDI(NF) 1 puff INH DAILY 11/08/18 11/08/18 History [Breo Ellipta MDI 100/25(NF)] - History of Current Complaint Chief Complaint: EDGeneral Time Seen by Provider: 11/08/18 03:45 Hx Obtained From: Patient Onset/Duration: Sudden Onset, Lasting Days - 11/05/18 Severity: Severe - 12/05 Associated Signs And Symptoms: Negative: Drooling Cough: None - Allergies/Home Medications Allergies/Adverse Reactions: Allergies Allergy/AdvReac Type Severity Reaction Status Date / Time bee venom protein (honey bee) Allergy Swelling Verified 08/04/17 14:04 Of Face,Lips,& Throat Penicillins Allergy Anaphylatic Verified 08/04/17 14:04 Shock shrimp Allergy Vomiting Verified 08/04/17 14:04 Home Medications: Home Medications Acetaminophen TAB* [Tylenol TAB*] 325 mg PO BID 11/08/18 [History Confirmed ] Amlodipine Besylate [Amlodipine 2.5 mg tab] 2.5 mg PO DAILY 11/08/18 [History Confirmed 11/08/18] Fluticasone/Vilanterol MDI(NF) [Breo Ellipta MDI 100/25(NF)] 1 puff INH DAILY [History Confirmed 11/08/18] PMH/Surg Hx/FS Hx/Imm Hx Cardiovascular History: Reports: Hx Congestive Heart Failure, Hx Hypercholesterolemia, Hx Hypertension Denies: Hx Pacemaker/ICD Respiratory History: Reports: Other Respiratory Problems/Disorders - increasing SOB since December 2016 Musculoskeletal History: Reports: Other Musculoskeletal History - shoulder surgery, age 26 Denies: Hx Rheumatoid Arthritis, Hx Osteoporosis Sensory History: Reports: Hx Contacts or Glasses, Hx Macular Degeneration - legally blind Denies: Hx Hearing Aid Opthamlomology History: Reports: Hx Contacts or Glasses, Hx Macular Degeneration - legally blind Psychiatric History: Reports: Hx Anxiety, Hx Schizophrenia, Hx Bipolar Disorder , Other Psychiatric Issues/Disorders - psychosis, delusions Denies: Hx Eating Disorder, Hx Panic Disorder, Hx of Violent Episodes Against Others - Cancer History Hx Chemotherapy: No Hx Radiation Therapy: No - Surgical History Surgery Procedure, Year, and Place: SHOULDER SURGERY AGE 26 Infectious Disease History: No Infectious Disease History: Denies: Hx Clostridium Difficile, Hx Hepatitis, Hx Human Immunodeficiency Virus (HIV), Hx of Known/Suspected MRSA, Hx Shingles, Hx Tuberculosis, Traveled Outside the [place] in Last 30 Days - Family History Known Family History: Negative: Blood Disorder - Social History Alcohol Use: None Substance Use Type: Reports: None Hx Tobacco Use: No Smoking Status (MU): Never Smoked Tobacco Review of Systems Positive: Fever - off and on Positive: Dental Pain - right lower jaw All Other Systems Reviewed And Are Negative: Yes Physical Exam - Summary Physical Exam Summary: General: Well-developed, Well-nourished (MALE/FEMALE). No acute distress. HEENT: Normocephalic, Atraumatic. Eyes: Conjuctiva normal, PERRL. Ears: TMs within normal limits. Nares: (-) discharge, (-) erythema. Oropharynx: Clear, mucous membranes moist, (-) exudates. Swelling inferior right jaw. No fluxion, no mass oropharynx abnormal dentition. Neck: Soft, FROM, (-) lymphadenopathy, (-) thyromegaly, (-) JVD. Cardiovascular: Normal sinus rhythm, (-) murmur. Lungs: Clear to auscultation bilaterally (-) wheezes, (-) rales, (-) rhonchi. Abdomen: Soft, non-tender, non-distended, (-) organomegaly, normal bowel sounds. Back: (-) CVA tenderness Extremities: No edema. Skin: Warm, dry, (-) rash. Neuro: Alert and oriented x3, no focal deficits. Psychiatric: Mood normal, affect normal. Triage Information Reviewed: Yes Vital Signs On Initial Exam: Initial Vitals Temp Pulse Resp BP Pulse Ox 98.3 F 86 20 142/101 95 11/08/18 03:36 11/08/18 03:36 11/08/18 03:36 11/08/18 03:36 11/08/18 03:36 Vital Signs Reviewed: Yes Diagnostics - Vital Signs Vital Signs Temp Pulse Resp BP Pulse Ox 11/08/18 06:30 98.3 F 86 18 97/57 95 11/08/18 06:07 86 97/57 93 11/08/18 06:00 91 95 11/08/18 05:38 95 116/70 96 11/08/18 05:29 88 93 11/08/18 05:07 89 155/68 93 11/08/18 03:36 98.3 F 86 20 142/101 95 - Laboratory Lab Statement: Any lab studies that have been ordered have been reviewed, and results considered in the medical decision making process. EENT Course/Dx - Course Course Of Treatment: patient given ibuprofen. started on clindamycin. ice as needed. discharged to home. follow up with dentist elias one week. follow up sooner for any worsening symtpoms - Diagnoses Provider Diagnoses: Dental abscess Discharge ED - Sign-Out/Discharge Documenting (check all that apply): Patient Departure - discharged Patient Received Moderate/Deep Sedation with Procedure: No - Discharge Plan Condition: Good Disposition: HOME Prescriptions: Clindamycin Cap(NF) [Clindamycin Cap 300 mg Cap(NF)] 300 mg PO Q6H 10 Days #40 cap Clindamycin Cap(NF) [Clindamycin Cap 300 mg Cap(NF)] 300 mg PO Q6H #40 cap Patient Education Materials: Dental Abscess (ED) Referrals: Trinity Li MD [Primary Care Provider] - - Billing Disposition and Condition Condition: GOOD Disposition: Home - Attestation Statements Document Initiated by Christianibe: Yes Documenting Scribe: Jossy Domingo Provider For Whom Scribe is Documenting (Include Credential): Dr. Desi Leal MD Scribe Attestation: Jossy Escobar scribed for Dr. Desi Leal MD on 11/10/18 at 0621. Scribe Documentation Reviewed: Yes Provider Attestation: The documentation as recorded by the Jossy john accurately reflects the service I personally performed and the decisions made by me, Dr. Desi Leal MD Status of Scribe Document: Viewed
[2018-11-08] MEDS ORDERED: Divalproex DR TAB(*) 250 MG PO SCH (09:00)
[2018-11-08] MEDS ORDERED: Acetaminophen TAB* 325 MG PO SCH (09:00)
[2018-11-08] MEDS ORDERED: Fluticasone/Vilanterol MDI(NF) 100/25 MDI INH SCH (09:00)
[2018-11-08] MEDS ORDERED: AMLODIPINE 2.5 MG TAB (NF) PO SCH (09:00)
[2018-11-08] MEDS ORDERED: FLUoxetine CAP* 10 MG PO SCH (09:00)
[2018-11-08] MEDS ORDERED: Divalproex DR TAB(*) 500 MG PO SCH (21:00)
[2018-11-08] MEDS ORDERED: OLANzapine TAB* 10 MG PO SCH (21:00)
== END 2018-11-08 05:54 | disposition home or self-care (01) ==
LOC: ED 03:34
DX: K04.7 Periapical abscess without sinus (principal); I11.0 Hypertensive heart disease with heart failure; I50.9 Heart failure, unspecified; E78.00 Pure hypercholesterolemia, unspecified; F20.9 Schizophrenia, unspecified; F31.9 Bipolar disorder, unspecified; Z79.899 Other long term (current) drug therapy; Z88.0 Allergy status to penicillin
CPT/HCPCS: 99284; A9270-GY

== ENCOUNTER 2018-12-15 01:54 | Inpatient (IN) | payer MEDICARE ==
[2018-12-15] MEDS ORDERED: NS 0.9% 1000 ML** 1,000 ML IV ONE (02:05)
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
[2018-12-15 02:29] LABS: Hematocrit 41 % (35-47); Hemoglobin 13.5 g/dL (12.0-16.0); Mean Corpuscular HGB Conc 33 g/dL (31-36); Mean Corpuscular Hemoglobin 30 pg (27-31); Mean Corpuscular Volume 90 fL (80-97); Mean Platelet Volume 10.5 fL (7.4-10.4); Platelet Count 220 10^3/uL (150-450); Red Blood Count 4.56 10^6 /uL (3.70-4.87); Red Cell Distribution Width 16 % (10-15); White Blood Count 18.9 10^3/uL (3.5-10.8)
[2018-12-15 02:35] LABS: Activated Partial Thrombo Time 33.2 seconds (26.0-38.0); INR 1.09 (0.82-1.09)
[2018-12-15 02:45] LABS: ALT 12 U/L (7-52); AST 16 U/L (13-39); Albumin 3.7 g/dL (3.2-5.2); Albumin/Globulin Ratio 0.9 (1-3); Alkaline Phosphatase 92 U/L (34-104); Anion Gap 9 mmol/L (2-11); BUN/Creatinine Ratio 21.5 (8-20); Blood Urea Nitrogen 32 mg/dL (6-24); CO2 Carbon Dioxide 26 mmol/L (22-32); Calcium 9.2 mg/dL (8.6-10.3); Chloride 105 mmol/L (101-111); EGFR African American 41.2 (>60); Globulin 4.2 g/dL (2-4); Glucose 130 mg/dL (70-100); Potassium 4.3 mmol/L (3.5-5.0); Sodium 140 mmol/L (135-145); Total Protein 7.9 g/dL (6.4-8.9)
[2018-12-15 02:55] LABS: ABS Basophils 0.1 10^3/ul (0-0.2); ABS Eosinophils 0.1 10^3/ul (0-0.6); ABS Lymphocytes 1.3 10^3/ul (1.0-4.8); ABS Monocytes 1.6 10^3/ul (0-0.8); ABS Neutrophils 15.9 10^3/ul (1.5-7.7); Eosinophil % 0.6 %; Lymphocyte % 6.7 %
[2018-12-15 02:59] LABS: Troponin I 0.04 ng/mL (<0.04)
[2018-12-15 03:11] LABS: Urine Appearance Clear; Urine Bilirubin Negative (Negative); Urine Blood Negative (Negative); Urine Color Yellow; Urine Glucose Negative (Negative); Urine Ketones Trace (Negative); Urine Nitrite Negative (Negative); Urine Protein Negative (Negative); Urine Specific Gravity 1.024 (1.010-1.030); Urine Urobilinogen Negative (Negative)
--- OUTSIDE RECORDS SUMMARY | 2018-12-15 03:36 | XMS REPORT | Continuity of Care Document ---
:1940 External Reference #:[id number] Author Name Antoinette Loo MD (transmitted by agent of provider Jazmin Dumont) Address [address], [address] [place] [address] Care Team Providers Name Role Phone Trinity Li MD - Care Team Information Rn Clinical [phone] Family Medicine Problems Active Problems Provider Date Psychotic disorder Antonio Jade M.D. Onset: 03/21/2012 Pure hypercholesterolemia Antonio Jade M.D. Onset: 04/23/2012 Malaise and fatigue Antonio Jade M.D. Onset: 04/23/2012 Tardive dyskinesia Misty Sears M.D. Onset: 04/01/2015 Extrapyramidal disease Misty Sears M.D. Onset: 04/01/2015 Note: felt secondary to previous medication exposure Social History Type Date Description Comments Sex Unknown Tobacco Use Start: Unknown Never Smoked Cigarettes Tobacco Use Start: Unknown Secondhand smoke Father and , exposure quit 4 years after marriage Smoking Status Reviewed: 11/28/18 Secondhand smoke Father and , exposure quit 4 years after marriage ETOH Use Denies alcohol use Tobacco Use Start: Unknown Patient has never smoked Recreational Drug Use Denies Drug Use Exercise Type/Frequency Exercises rarely Some walking Allergies, Adverse Reactions, Alerts Active Allergies Reaction Severity Comments Date Penicillin can't breath 03/21/2012 Medications Active Medications SIG Qnty Indications Ordering Provider Date Oxygen please use gertrudis Santamaria 06/07/2018 [facility] [place] [employer] 2l/minute at night via nasal cannula (Pt not using, returned) Depakote 1 by mouth 30tabs Antonio Jade, 01/15/[address] every morning MKelvin Depakote once at hs Unknown 500mg Zyprexa once daily Unknown 15mg Tablets Fluoxetine HCL 1 by mouth Unknown 20mg every day Capsules Breo Ellipta 1 puff inhaled 60units Antoinette Eze, daily 100-25mcg/Inh Aerosol Amlodipine Besylate 1 by mouth one Unknown 2.5mg time per day Tablets Acetaminophen 1 by mouth two Unknown 325mg times per day Tablets Medications Administered in Office Medication SIG Qnty Indications Ordering Provider Date Influenza Virus Vaccine Unknown 02/26/2014 Injection Immunizations CPT Code Status Date Vaccine Lot # [id number] Given 01/15/2017 Influenza Virus Vaccine, Quadrivalent, Split, [id number] Preservative Free [id number] Given 01/25/2016 Influ Virus Vaccine, Quadrivalent, Split Virus, Im [id number] [place] [id number] Given 03/18/2015 Influenza Virus Vaccine, Quadrivalent, Split, [id number] Preservative Free 15047 Given 06/02/2014 Zoster (Zostavax) [id number] Given 03/21/2012 Pneumonia Vaccine [id number] Given 03/21/2012 Tdap - Tetanus/Diptheria/Acellular Pertussis [id number] Vital Signs Date Vital Result Comment 11/28/2018 1:10pm Height 65.75 inches 5'5.75" Weight 215.12 lb Heart Rate 76 /min BP Systolic Sitting 146 mmHg Lue large cuff BP Diastolic Sitting 90 mmHg Lue large cuff Respiratory Rate 20 /min O2 % BldC Oximetry 95 % On Ra BMI (Body Mass Index) 35.0 kg/m2 05/27/2018 2:21pm Height 65.75 inches 5'5.75" Weight 231.00 lb Heart Rate 72 /min BP Systolic Sitting 134 mmHg Lue large cuff BP Diastolic Sitting 78 mmHg Lue large cuff Respiratory Rate 12 /min O2 % BldC Oximetry 96 % BMI (Body Mass Index) 37.6 kg/m2 Results Description No Information Available Procedures Date Code Description Status 08/01/2016 [id number] Bone Mineral Density Test Completed 08/01/2016 [id number] Mammogram Completed 05/01/2012 [id number] Mammogram Completed 04/09/2012 [id number] Bone Mineral Density Test Completed 04/09/2012 [id number] Mammogram Completed Medical Devices Description No Information Available Encounters Description No Information Available Assessments Date Code Description Provider 11/28/2018 J45.909 Unspecified asthma, uncomplicated Antoinette Loo MD 11/28/2018 R09.02 Hypoxemia Antoinette Loo MD Plan of Treatment 11/28/2018 - Antoinette Loo MDJ45.909 Unspecified asthma, uncomplicatedFollow up:1 yearR09.02 Hypoxemia Functional Status Description No Information Available Mental Status Description No Information Available Referrals Description No Information Available
--- OUTSIDE RECORDS SUMMARY | 2018-12-15 03:36 | XMS REPORT | Summary of Care ---
:1940 Author Organization [facility] Address [address] [place] [address] Care Team Providers Name Role Phone Trinity Li MD Primary Care Provider Reason for Visit Reason Comments Urinary Tract Infection increased behaviors, confusion Encounter Details Date Type Department Care Team Description 12/11/2018 Office Visit [facility] Fabiola Muñiz, Acute cystitis without hematuria (Primary Dx); Practice [facility] Confusion [address] [place] [address] [place] [address] [phone] Allergies Active Allergy Reactions Severity Noted Date Comments Penicillins Rash 07/02/2017 Shrimp (Diagnostic) Anaphylaxis 07/02/2017 documented as of this encounter (statuses as of 12/11/2018) Medications Medication Sig Dispensed Refills Start Date End Date Status divalproex sodium Take 750 mg by 0 Active (DEPAKOTE) 250 MG Oral mouth DIRECTED. Tab EC 1 tab in morning and 2 tabs in evening olanzapine (ZYPREXA) Take 15 mg by 0 Active 15 MG Oral Tab mouth EVERY BEDTIME. clotrimazole Apply to rash 113 g 3 11/20/2017 Active (LOTRIMIN) 1 % Apply under breast twice externally a day until gone, CreamIndications: repeat treatment Tinea corporis if rash returns fluoxetine (PROZAC) 10 Take 3 Caps by 30 Cap 5 04/09/2018 Active MG Oral Cap mouth DAILY. Per Dr Del Valle diphenhydrAMINE Take 25 mg by 0 Active (BENADRYL ALLERGY) 25 mouth EVERY SIX MG Oral Cap HOURS NEEDED (allergy). calcium carbonate Take 1 Tab by 0 Active (TUMS) 500 MG Oral mouth EVERY SIX Chew Tab HOURS NEEDED (heartburn). Incontinence Supply 1 Units by Does 150 Each 11 08/06/2018 Active Disposable (SELECT not apply route DISPOSABLE UNDERWEAR EVERY FOUR HOURS XL) Does not apply NEEDED (change Misc when soiled). acetaminophen Take 1 Tab by 60 Tab 5 08/14/2018 Active (TYLENOL) 325 MG Oral mouth TWICE DAILY. Tab amLodipine (NORVASC) TAKE 1 TABLET BY 30 Tab 5 08/30/2018 Active 2.5 MG Oral MOUTH DAILY FOR TabIndications: HYPERTENSION Essential hypertension Fluticasone Take 1 Puff by 1 Each 5 09/25/2018 Active Furoate-Vilanterol inhalation DAILY. (BREO ELLIPTA) 100-25 MCG/INH Inhalation AEROSOL POWDER, BREATH ACTIVATEDIndications: Dyspnea on exertion LORazepam (ATIVAN) 0.5 Take 1-2 Tabs by 4 Tab 0 11/11/2018 Active MG Oral mouth ONCE TabIndications: NEEDED (1 hour Anxiety prior to denal appt.) for up to 1 dose. Max Daily Amount: 1 mg. sulfamethoxazole-trime Take 1 Tab by 10 Tab 0 12/11/2018 Active thoprim (BACTRIM DS) mouth TWICE DAILY. 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 Psychotic disorder Tardive dyskinesia Hyperlipidemia documented as of this encounter (statuses as of 12/11/2018) Resolved Problems Problem Noted Date Resolved Date Sepsis 05/20/2018 05/20/2018 documented as of this encounter (statuses as of 12/11/2018) Immunizations Name Administration Dates Next Due Influenza Vaccine High Dose 11/20/2017 PNEUMOCOCCAL POLYSACCHARIDE VACCINE 03/21/2012 Pneumococcal Conjugate(13 Valent) 11/20/2017 TDAP Vaccine 03/21/2012 ZOSTER (ZOSTAVAX) VACCINE 06/02/2014 documented as of this encounter Social History Tobacco Use Types Packs/Day Years Used Date Never Smoker Smokeless Tobacco: Never Used Alcohol Use Drinks/Week oz/Week Comments No Sex Assigned at Date Recorded Not on file Job Start Date Occupation Industry Not on file Not on file Not on file Travel History Travel Start Travel End No recent travel history available. documented as of this encounter Last Filed Vital Signs Vital Sign Reading Time Taken Comments Blood Pressure 134/78 12/11/2018 4:36 PM EDT Pulse 87 12/11/2018 4:11 PM EDT Temperature 36.3 12/11/2018 4:11 PM EDT C (97.4 F) Respiratory Rate 22 12/11/2018 4:11 PM EDT Oxygen Saturation 97% 12/11/2018 4:11 PM EDT Inhaled Oxygen Concentration - - Weight 96.7 kg (213 lb 3.2 oz) 12/11/2018 4:11 PM EDT Height 167 cm (5' 5.75") 12/11/2018 4:11 PM EDT Body Mass Index 34.67 12/11/2018 4:11 PM EDT documented in this encounter Patient Instructions Patient InstructionsFabiola Muñiz NP - 12/11/2018 4:00 PM EDTYou have been prescribed an antibiotic - Bactrim 1 tablet twice daily for 5 days. Please take all doses as prescribed. Drink plenty of fluid. You can take Pyridium over the counter for symptom relief - be aware that this can turn your urine orange. Please return if symptoms worsen or fail to improve. You have been prescribed an antibiotic for treatment of your condition. It is important to rememberthat antibiotics treat bacterial infections. In order for them to be effective - you must take ALL of the medication and take it exactly as prescribed. FINISH THE MEDICATION - even if you are feelingbetter. Antibiotics can cause stomach upset and diarrhea. You can help decrease these symptoms by also taking a probiotic while using the medication (Align, Culturelle or the like). Take with food if recommended by the pharmacist. If you are not feeling better in 3-5 days - call or return to the office. Patient Education Urinary Tract Infections in Adults The Basics Written by the doctors and editors at [facility] What is the urinary tract? The urinary tract is the group of organs in the body that handle urine (figure 1). The urinary tract includes the: Kidneys, 2 bagley-shaped organs that filter the blood to make urine Bladder, a balloon-shaped organ that stores urine Ureters, 2 tubes that carry urine from the kidneys to the bladder Urethra, the tube that carries urine from the bladder to the outside of the body What are urinary tract infections? Urinary tract infections, also called "UTIs," are infections that affect either the bladder or the kidneys. Bladder infections are more common than kidney infections. Bladder infections happen when bacteria get into the urethra and travel up into the bladder. Kidney infections happen when the bacteria travel even higher, up into the kidneys. Both bladder and kidney infections are more common in women than men. What are the symptoms of a bladder infection? The symptoms include: Pain or a burning feeling when you urinate The need to urinate often The need to urinate suddenly or in a hurry Blood in the urine What are the symptoms of a kidney infection? The symptoms of a kidney infection can include the symptoms of a bladder infection, but kidney infections can also cause: Fever Back pain Nausea or vomiting How do I find out if I have a urinary tract infection? See your doctor or nurse. He or she will probably be able to tell if you have a urinary tract infection just by learning about your symptoms and doing a simple urine test. If your doctor or nurse thinks you might have a kidney infection or is unsure what you have, he or she might also do a more involved urine test to check for bacteria. How are urinary tract infections treated? Most urinary tract infections are treated with antibiotic pills. These pills work by killing the germs that cause the infection. If you have a bladder infection, you will probably need to take antibiotics for 3 to 7 days. If you have a kidney infection, you will probably need to take antibiotics for longer maybe for up to2 weeks. If you have a kidney infection, it's also possible you will need to be treated in the hospital. Your symptoms should begin to improve within a day of starting antibiotics. But you should finish all the antibiotic pills you get. Otherwise your infection might come back. If needed, you can also take a medicine to numb your bladder. This medicine eases the pain caused byurinary tract infections. It also reduces the need to urinate. What if I get bladder infections a lot? First, check with your doctor or nurse to make sure that you are really having bladder infections. The symptoms of bladder infection can be caused by other things. Your doctor or nurse will want to see if those problems might be causing your symptoms. But if you are really dealing with repeated infections, there are things you can do to keep from getting more infections. These include: Avoiding spermicides (sperm-killing creams) Spermicide is a form of control. It seems to increase the risk of bladder infections in some women , especially when used with a diaphragm. If you use spermicide and get a lot of bladder infections, you might want to try switching to a different form of control. Drinking more fluid This can help prevent bladder infections. Urinating right after sex Some doctors think this helps, because it helps flush out germs that might get into the bladder during sex. There is no proof it works, but it also cannot hurt. Vaginal estrogen If you are a woman who has already been through menopause, your doctor might suggest this. Vaginal estrogen comes in a cream or a flexible ring that you put into your vagina. It can help prevent bladder infections. Antibiotics If you get a lot of bladder infections, and the above methods have not helped, your doctor might give you antibiotics to help prevent infection. But taking antibiotics has downsides, so doctors usually suggest trying other things first. Can cranberry juice or other cranberry products prevent bladder infections? The studies suggesting that cranberry products prevent bladder infections are not very good. Other studies suggest that cranberry products do not prevent bladder infections. But if you want to try cranberry products forthis purpose, there is probably not much harm in doing so. All topics are updated as new evidence becomes available and our peer review process is complete. This topic retrieved from [employer] on: Jan 21, 2018. Topic 36917 Version 10.0 Release: 26.5.4 - C26.311 2018 [employer]. and/or its affiliates. All rights reserved. figure 1: Anatomy of the urinary tract Urine is made by the kidneys. It passes from the kidneys into the bladder through two tubes called the ureters. Then it leaves the bladder through another tube called the urethra. Graphic 48611 Version 7.0 Consumer Information Use and Disclaimer This information is not specific medical advice and does not replace information you receive from your health care provider. This is only a brief summary of general information. It does NOT include allinformation about conditions, illnesses, injuries, tests, procedures, treatments, therapies, discharge instructions or life-style choices that may apply to you. You must talk with your health care provider for complete information about your health and treatment options. This information should not beused to decide whether or not to accept your health care provider's advice, instructions or recommendations. Only your health care provider has the knowledge and training to provide advice that is right for you.The use of [employer] content is governed by the [employer] Terms of Use. 2018 [employer]. All rights reserved. Copyright 2018 [employer]. and/or its affiliates. All rights reserved. documented in this encounter Progress Notes Fabiola Muñiz NP - 12/11/2018 4:00 PM EDT PATIENT: Jazz Wisdom : 1940 DATE OF SERVICE: 12/11/2018 CHIEF COMPLAINT: Chief Complaint Patient presents with Urinary Tract Infection increased behaviors, confusion Subjective HISTORY OF PRESENT ILLNESS: Jazz Wisdom is a 78-y.o. female. HPI Increased confusion/behaviors for a couple of days, patient is from [place]. No c/o dysuria, burning urgency or frequency. No abdominal pain. No other complaints. No fevers. Maybe recent antibiotic use - she thinks amoxicillin (although she is allergic to penicillin. Son is unsure which antibiotic it was). She had a recent dental procedure. Past Medical History: Diagnosis Date Breath shortness Cardiomyopathy (HCC) 2006 EF 10-15% 2006, improved with carvedilol, losartan/HCTZ. [place] to be viral CHF (congestive heart failure) (HCC) 01/01/2018 Congestive heart failure (HCC) 2010 when in [place], thinks viral Essential hypertension 09/04/[address] Christopher History of MRI of brain and brain stem 03/26/2012 chronic microvascular ischemic changes in frontal and parietal white matter no infarction, no mas. 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 Sees Dr Christopher neurologist in [facility] Dr [place], psychiatrist. Psychotic disorder (HCC) developed suddenly in 2012 or so, no clear etiology. Tardive dyskinesia Family History Problem Relation Age of Onset Diabetes Daughter Heart Daughter Heart Other CHF in cousin Current Outpatient Medications Medication Sig acetaminophen (TYLENOL) 325 MG Oral Tab Take 1 Tab by mouth TWICE DAILY. amLodipine (NORVASC) 2.5 MG Oral Tab TAKE 1 TABLET BY MOUTH DAILY FOR HYPERTENSION calcium carbonate (TUMS) 500 MG Oral Chew Tab Take 1 Tab by mouth EVERY SIX HOURS NEEDED (heartburn). clotrimazole (LOTRIMIN) 1 % Apply externally Cream Apply to rash under breast twice a day until gone, repeat treatment if rash returns diphenhydrAMINE (BENADRYL ALLERGY) 25 MG Oral Cap Take 25 mg by mouth EVERY SIX HOURS NEEDED (allergy). divalproex sodium (DEPAKOTE) 250 MG Oral Tab EC Take 750 mg by mouth DIRECTED. 1 tab in morning and 2 tabs in evening fluoxetine (PROZAC) 10 MG Oral Cap Take 3 Caps by mouth DAILY. Per Dr Del Valle Fluticasone Furoate-Vilanterol (BREO ELLIPTA) 100-25 MCG/INH Inhalation AEROSOL POWDER, BREATH ACTIVATED Take 1 Puff by inhalation DAILY. Incontinence Supply Disposable (SELECT DISPOSABLE UNDERWEAR XL) Does not apply Misc 1 Units by Does not apply route EVERY FOUR HOURS NEEDED (change when soiled). LORazepam (ATIVAN) 0.5 MG Oral Tab Take 1-2 Tabs by mouth ONCE NEEDED (1 hour prior to denal appt.) for up to 1 dose. Max Daily Amount: 1 mg. olanzapine (ZYPREXA) 15 MG Oral Tab Take 15 mg by mouth EVERY BEDTIME. sulfamethoxazole-trimethoprim (BACTRIM DS) 800-160 MG Oral Tab Take 1 Tab by mouth TWICE DAILY. No current facility-administered medications for this visit. Allergies Allergen Reactions Penicillins Rash Shrimp (Diagnostic) Anaphylaxis Social History Socioeconomic History Marital status: Spouse name: Not on file Number of children: Not on file Years of education: Not on file Highest education level: Not on file Occupational History Not on file Social Needs Financial resource strain: Not on file Food insecurity: Worry: Not on file Inability: Not on file Transportation needs: Medical: Not on file Non-medical: Not on file Tobacco Use Smoking status: Never Smoker Smokeless tobacco: Never Used Substance and Sexual Activity Alcohol use: No Drug use: No Sexual activity: Never Lifestyle Physical activity: Days per week: Not on file Minutes per session: Not on file Stress: Not on file Relationships Social connections: Talks on phone: Not on file Gets together: Not on file Attends mosque service: Not on file Active member of club or organization: Not on file Attends meetings of clubs or organizations: Not on file Relationship status: Not on file Intimate partner violence: Fear of current or ex partner: Not on file Emotionally abused: Not on file Physically abused: Not on file Forced sexual activity: Not on file Other Topics Concern Back Care Not Asked Bike Helmet Not Asked Blood Transfusions Not Asked Caffeine Concern Not Asked Exercise Not Asked Hobby Hazards Not Asked International Travel Not Asked Service Not Asked Occupational Exposure Not Asked Seat Belt Not Asked Self-Exams Not Asked Sleep Concern Not Asked Special Diet Not Asked Stress Concern Not Asked Weight Concern Not Asked Social History Narrative 24 ;yr Retired: [employer] [facility] records from [facility] and records from [facility] [place], and those of Dr Jade were received and reviewe, sent to scanning REVIEW OF SYSTEMS: Review of Systems Constitutional: Negative for chills, fever and malaise/fatigue. Gastrointestinal: Negative for abdominal pain, blood in stool, constipation, diarrhea, nausea and vomiting. Genitourinary: Negative for dysuria, flank pain, frequency, hematuria and urgency. Musculoskeletal: Negative for back pain. Psychiatric/Behavioral: Increasing confusion Objective PHYSICAL EXAM: VITALS: BP 134/78 | Pulse 87 | Temp 97.4 F (36.3 C) (Tympanic) | Resp 22 | Ht 5' 5.75" (1.67 m) | Wt 213 lb 3.2 oz (96.7 kg) | SpO2 97% | BMI 34.67 kg/m Body mass index is 34.67 kg/m. Physical Exam Vitals signs and nursing note reviewed. Constitutional: Appearance: Normal appearance. She is not ill-appearing. Cardiovascular: Rate and Rhythm: Normal rate and regular rhythm. Heart sounds: Normal heart sounds. No murmur. No friction rub. No gallop. Pulmonary: Effort: Pulmonary effort is normal. No respiratory distress. Breath sounds: Normal breath sounds. Abdominal: General: Bowel sounds are normal. Palpations: Abdomen is soft. Tenderness: There is no tenderness. There is no right CVA tenderness or left CVA tenderness. Neurological: Mental Status: She is alert. Mental status is at baseline. She is confused. Results for orders placed or performed in visit on 12/11/18 URINE DIP MANUAL (AMB POCT) Result Value Ref Range URINE GLUCOSE (POCT) Negative Negative mg/dl URINE BILIRUBIN (POCT) Moderate (A) Negative Urine Ketones (POCT) 40 (A) Negative URINE SPECIFIC GRAVITY (POCT) 1.010 1.005 - 1.030 URINE BLOOD (POCT) Trace-Intact (A) Negative URINE PH (POCT) 7.0 5.0 - 8.0 URINE PROTEIN (POCT) Trace (A) Negative mg/dl URINE UROBILINOGEN (POCT) 0.2 0.2 - 1.0 mg/dl URINE NITRITES (POCT) Positive (A) Negative URINE LEUKOCYTES (POCT) Moderate (A) Negative Cells/uL ASSESSMENT / IMPRESSION: ICD-9-CM ICD-10-CM 1. Acute cystitis without hematuria 595.0 N30.00 sulfamethoxazole-trimethoprim ( BACTRIM DS) 800-160 MG Oral Tab 2. Confusion 298.9 R41.0 URINE DIP MANUAL (AMB POCT) URINE CULTURE (C&S) URINE CULTURE (C&S) Plan 1. Confusion - URINE DIP MANUAL (AMB POCT) - URINE CULTURE (C&S); Future - URINE CULTURE (C&S) 2. Acute cystitis without hematuria UTI on dipstick. Will send for culture and treat. Return if symptoms not improved in 3-5 days. Paperwork completed for [facility]. - sulfamethoxazole-trimethoprim (BACTRIM DS) 800-160 MG Oral Tab; Take 1 Tab by mouth TWICE DAILY. Dispense: 10 Tab; Refill: 0 Author: Fabiola Muñiz NP 12/11/2018 17:23 documented in this encounter Plan of Treatment Date Type Specialty Care Team Description 12/17/2018 Office Visit Family [facility] Fabiola Muñiz NP [address] [place] [address] [phone] 03/07/2019 Office Visit Family Practice Trinity Li MD [address] [place] [address] [phone] 09/02/2019 Orders Only Cardiology 09/10/2019 Office Visit Cardiology Ishaan Umaña MD [address] [place] [address] [phone] Name Type Priority Associated Diagnoses Date/Time URINE CULTURE (C&S) Lab Routine Confusion 12/11/2018 4:26 PM EDT Name Type Priority Associated Diagnoses Order Schedule URINE CULTURE (C&S) Lab Routine Confusion Expected: 12/11/2018, Expires: 06/12/2019 Health Maintenance Due Date Last Done Comments MEDICARE ANNUAL WELLNESS VISIT 1940 ZOSTER IMMUNIZATION SERIES (2 07/28/2014 06/02/2014 of 3) INFLUENZA VACCINE (#1) 2018 11/20/2017 DEPRESSION SCREENING 09/05/2019 09/04/2018 FALL RISK ASSESSMENT 09/05/2019 09/04/2018, 09/04/2018 OSTEOPOROSIS SCREENING 08/01/2026 08/01/2016, 08/01/2016 PNEUMOCOCCAL 65+YRS Completed 11/20/2017, 03/21/2012 HPV IMMUNIZATION SERIES Aged Out No longer eligible based on patient's age to complete this topic MENINGOCOCCAL VACCINE IMM Aged Out No longer eligible based on patient's age to complete this topic documented as of this encounter Goals Goal Patient Goal Associated Recent Patient-Stated? Author Type Problems Progress Blood Pressure Blood 134/78 No Jen, < 150/90 Pressure (12/11/2018 Trinity Chandler, 4:36 PM EDT) Note: This is an individualized treatment (blood pressure) goal for Jazz Wisdom: Displayed above (on the left) is your goal for blood pressure control. Your most recent blood pressure is also shown above, on the right. You should try to achieve blood pressures that are lower than your goal listed above (on the left). Weight increase vs. 18 CHF 0 (12/11/2018 4:11 PM Trinity Lepe, mo min (lbs) < 5 EDT) Note: This is an individualized treatment (congestive heart failure, CHF) goal for Jazz Wisdom: Displayed above (on the right) is how many pounds you are in excess of your lowest weight over the past 18 months. Note that lower numbers are better. Excessive weight gain often indicates fluid reten tion and worsening heart failure. You should contact your doctor immediately if the above number is too high (above your goal, the number on the left). Consume a [id number] diet Lifestyle Trinity Lepe MD Note: This is an individualized lifestyle goal for Jazz Wisdom: Please do not add additional salt to your food. Additional salt may lead to fluid retention and worsen your congestive heart failure. Take all prescribed medications as Self-management Trinity Lepe MD directed Note: This is an individualized self-management goal for Jazz Wisdom: Please take all prescribed medications as directed. 1. Do not skip doses. If you cannot afford your medications, talk with your doctor. 2. Use a pill reminder system such as a pill box if needed. Your pharmacist can help you with this. 3. Contact your Pharmacy 5 days before your medication runs out. If you cannot take your medications for any reasons, talk with your doctor. 4. Please bring all of your medication bottles and inhalers (or a list of all your medications/inhalers) with you to every visit. Potential barriers to meeting all of your care plan goals will continue to be addressed on an ongoing basis. Check your weight daily Self-management Trinity Lepe MD Note: This is an individualized self-management goal for Jazz Wisdom: Please check your weight daily. Refer to the accompanying CHF treatment goal and call your doctor immediately for further instructions on how to respond to unexpected weight gain. documented as of this encounter Procedures Procedure Name Priority Date/Time Associated Diagnosis Comments URINE DIP MANUAL Routine 12/11/2018 4:20 PM Confusion Results for this (AMB POCT) EDT procedure are in the results section. documented in this encounter Results URINE DIP MANUAL (AMB POCT) (12/11/2018 4:20 PM EDT) URINE GLUCOSE (POCT) Negative Negative mg/dl [facility] [address] POCT URINE BILIRUBIN Moderate (A) Negative [facility] (POCT) [place] POCT Urine Ketones (POCT) 40 (A) Negative [facility] POCT URINE SPECIFIC 1.010 1.005 - 1.030 [facility] GRAVITY (POCT) [place] POCT URINE BLOOD (POCT) Trace-Intact (A) Negative [facility] [address] POCT URINE PH (POCT) 7.0 5.0 - 8.0 [facility] POCT URINE PROTEIN (POCT) Trace (A) Negative mg/dl [facility] [address] POCT URINE UROBILINOGEN 0.2 0.2 - 1.0 mg/dl [facility] (POCT) [place] POCT URINE NITRITES Positive (A) Negative [facility] (POCT) [place] POCT URINE LEUKOCYTES Moderate (A) Negative [facility] (POCT) Cells/uL [place] POCT Specimen Urine - Urine specimen (specimen) Performing Organization Address [facility]/State[facility] Phone Number [facility] [address] [place] [address] documented in this encounter Visit Diagnoses Diagnosis Acute cystitis without hematuria - Primary Acute cystitis Confusion Unspecified psychosis documented in this encounter Insurance Payer Benefit Plan / Subscriber ID Effective Dates Phone Address Type Group UHC MEDICARE [employer] xxxxxxxxx 2017-Present [facility] ADVANTAGE MEDICARE ADVANTAGE (Home) [place], [place] [phone] (Work) documented as of this encounter Advance Directives Type Date Recorded 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
[2018-12-15] MEDS ORDERED: Morphine INJ* 2 MG/ML 1 ML SYRINGE (TWO MG - NEW SYRINGE VERSION) IV PRN (06:11)
[2018-12-15] MEDS: Mometasone/Formoter 100/5 MDI INH SCH ×2 (08:15→20:13)
[2018-12-15] MEDS: Acetaminophen TAB* 325 MG PO PRN (08:26)
[2018-12-15] MEDS: FLUoxetine CAP* 10 MG PO SCH (08:26)
[2018-12-15] MEDS: amLODIPine TAB* 5 MG PO SCH (08:26)
[2018-12-15] MEDS: Sulfamethox/Trimethoprim DS 800/160* TAB PO SCH ×2 (08:27→21:55)
[2018-12-15] MEDS: Divalproex DR TAB(*) 250 MG PO SCH (08:27)
[2018-12-15] MEDS ORDERED: AMLODIPINE 2.5 MG TAB (NF) PO SCH (09:00)
--- NOTE | 2018-12-15 09:16 | HP ---
CC: Dr. Li * HISTORY AND PHYSICAL: DATE OF ADMISSION: 12/15/18 PRIMARY CARE PROVIDER: Dr. Li. CHIEF COMPLAINT: Fall with left groin pain. HISTORY OF PRESENT ILLNESS: Ms. Wylie is a 78-year-old female who has a history of psychosis, diastolic dysfunction with reported history of nonischemic cardiomyopathy, aortic stenosis, and hypertension, who states that she had been in her usual state of health getting ready for bed on the night prior to admission when she was taking off her sweatshirt and fell. There is a question if she lost balance or passed out. She initially told to triage nurse that she passed out, she told the ER doctor she did not, and then she told me that she did pass out. The patient is unable to describe how she fell prior to going down. She states the only thing she knows is that she found herself on the floor. She does not think she hit anything, however, she was unable to get up on her own after falling. The patient when asked why she could not get up, she stated "I don't know," but when I asked if she had pain in her groin, she states yes. The patient was able to get up and ambulate in the emergency room approximately 20 feet with the aid of a walker; however, she continues to have severe left groin pain. The patient states that she currently is not having any dizziness or lightheadedness. She denies any chest pain. She does tell me that she gets occasional shortness of breath, but she is unable to describe this further. She denies any cough. She denies any fevers or chills in the last couple of days. PAST MEDICAL HISTORY: 1. Psychosis. 2. Macular degeneration. 3. Diastolic congestive heart failure. 4. Questionable nonischemic cardiomyopathy. 5. Hypertension. 6. Aortic stenosis. PAST SURGICAL HISTORY: The patient states none, though when I asked her about previously listed surgeries including shoulder surgery, tonsillectomy, and neck surgery, she states yes to having the tonsillectomy, but states that she does not known if she had neck or shoulder surgery. MEDICATIONS: 1. Bactrim DS 1 tab p.o. b.i.d. x2 more days per MAR from [place]. 2. Olanzapine 15 mg p.o. q.h.s. 3. Breo Ellipta 100/25 one puff inhaled daily. 4. Fluoxetine 30 mg p.o. daily. 5. Depakote DR 500 mg p.o. q.h.s. and 250 mg p.o. q.a.m. 6. Amlodipine 2.5 mg p.o. daily. 7. Tylenol 325 mg p.o. b.i.d. ALLERGIES: PENICILLIN. FAMILY HISTORY: Mom from a CVA. Dad in a tornado. SOCIAL HISTORY: The patient does not smoke. She does not drink alcohol. 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 She is . She had 3 children, 1 is . She currently indicates that her son, Azra, would be her healthcare proxy. REVIEW OF SYSTEMS: A complete 11-system review of systems is obtained. Pertinent positives and negative are as per HPI and otherwise negative. PHYSICAL EXAMINATION GENERAL: The patient is a well-developed elderly female, seen lying in the stretcher with very flat affect, not making any eye contact, but in no acute distress. VITAL SIGNS: Blood pressure 163/92, pulse 90, respirations 18, temp 98.1, O2 sat 93% on room air. HEENT: Pupils are pinpoint. Extraocular muscles are intact. Oropharynx is clear. Oral mucosa is moist. NECK: There is no submandibular, cervical, or supraclavicular adenopathy. PULMONARY: Lungs are clear to auscultation bilaterally. CARDIAC: Normal S1, S2. Regular rate and rhythm. There is a 3/6 systolic murmur heard best at the right upper sternal border. There is no lower extremity edema. ABDOMEN: Bowel sounds present. Abdomen is soft, nontender, nondistended. MUSCULOSKELETAL: There is no cyanosis or clubbing of digits. There is full active range of motion of the upper extremities and right lower extremity. There is pain on internal and external rotation of the left hip. There is no pain in the hip or groin upon sitting up in bed. NEURO: Cranial nerves II through XII are grossly intact. Strength is normal in the upper extremities bilaterally. Distal strength in the lower extremities bilaterally is normal. Sensation is intact to light touch throughout. SKIN: Visible areas of skin are warm, dry, and without rash. PSYCH: The patient is oriented x3. She reportedly is not consistent in her history giving she has a flat affect. DIAGNOSTIC STUDIES/LAB DATA: Labs: WBC 18.9, hemoglobin 13.5, hematocrit 41, platelets 220. INR 1.09. Sodium 140, potassium 4.3, chloride 105, CO2 of 26, BUN 32, creatinine 1.49, glucose 130, lactic acid 2.2, calcium 9.2. Bilirubin 0.3, AST 16, ALT 12, alk phos 92. Troponin 0.04. Albumin 3.7. Urinalysis is clear with specific gravity of 1.024. EKG revealed normal sinus rhythm with no acute ST-T wave abnormalities. Hip, pelvis x-ray to be read by radiologist, but negative for fracture while interpreted by myself. CT pelvis reveals colonic diverticulosis without diverticulitis. There is mild degenerative change of the hips with joint space narrowing. This is otherwise a negative CT pelvis with no fractures identified. Chest x-ray to my interpretation reveals possible pulmonary vascular congestion , but no focal infiltrates. ASSESSMENT AND PLAN: Ms. Wylie is a 78-year-old female who has a history of psychosis, diastolic congestive heart failure, hypertension, and aortic stenosis , who presents to the emergency room after stating a fall at home with possible loss of consciousness and now complaints of left groin pain. 1. Possible syncope. At this point, it is not clear if the patient truly had a syncopal episode. As she is unable to provide any specific history, the patient will be admitted under observation status to telemetry. She will be monitored on tele through the day. I will obtain a transthoracic echocardiogram. Orthostatic blood pressure should be obtained in the near future. Her urinalysis does reveal concentrated urine which could indicate that she is volume deplete. 2. Left groin pain. At this point, the patient's imaging so far has ruled out fracture; however, she continues to have left groin pain. She may benefit from either orthopedic consultation or MRI of the left hip. I did enter for an MRI of the hip. Prior to getting her up out of bed, decision should be made whether or not the MRI is necessary. While she complained of severe pain in the left groin upon internal and external rotation of the leg, she did not appear to be in agony. Additionally, she was able to ambulate in the hallway. I suspect the likelihood that she has a hip fracture is low, but again perhaps orthopedic evaluation would help determine if the MRI would be warranted. For now, she will continue with les Fitchenol for mild pain, oxycodone for moderate pain, and morphine for severe pain. 3. Psychosis. The patient will be maintained on her usual doses of olanzapine , fluoxetine, and Depakote. I will order Depakote level to be added on to labs drawn in the ER. 4. Hypertension. Blood pressure is moderately elevated at this point. She is only on amlodipine 2.5 mg p.o. daily. I am going to increase this to 5 mg p.o. daily. 5. Leukocytosis. The patient has a marked leukocytosis of 18,900. She does not give any history or signs of infection. I question if this is just a stress reaction. I am going to hold off on antibiotic therapy for now. 6. Elevated troponin. The patient's troponin is mildly elevated at 0.04. Followup troponin and EKG will be obtained now. 7. Lactic acidosis. The patient has a very minimally elevated lactic acid. Again, there are no clear signs of infection. The patient receiving 1 L of normal saline as ordered by the ER provider. Given her history of congestive heart failure and possible pulmonary vascular congestion on chest x-ray, I am not going to order any further fluids. 8. Diastolic congestive heart failure. The patient's last echo was from . A new one will be obtained today. As she is not overtly fluid overloaded, I am going to hold on any diuretic therapy. She does not take any diuretics at baseline. 9. Aortic stenosis. We will get a reassessment of this with her echocardiogram. 10. DVT prophylaxis. According to the Adult Thrombosis Prophylaxis Risk Factor Assessment Guide, the patient has a total risk factor score of 4, making her high risk. Lovenox will be utilized as DVT prophylaxis. 10. Code status is full. TIME SPENT: Sixty-five minutes was spent admitting this patient. [id number]/[facility] #: [id number] JOEY
--- NOTE | 2018-12-15 15:53 | PN ---
Hospitalist Progress Note Date of Service: 12/15/18 Hospitalist brief update since admission Patient remains bedrest. Patient tells me her left hip pain continues, but is improved with pain medication. Nursing tells me pt has dyspnea when exerting herself minimally in bed, but O2 saturations good. Patient tells me she does not remember having symptoms leading up to falling to floor. She tells me that she was taking her sweater off and the next thing she knew she was on the floor. 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 PE: General: obese, elderly white female laying in bed appearing in NAD ENT: PERRL Cardio: RRR w/o m/r/g; no peripheral edema Lung: CTA throughout Abd: soft, nontender, nondistended MSK: left hip pain with passive internal and external rotation Neuro: minimally somnolent at times during exam as I awoke her from sleep, awakens easily to touch; oriented x3; sensation to light touch intact in LEs Psych: not responding to internal stimuli Plan: #syncope: again the patient is not the most reliable historian and she has a varied pattern of memory of what happened leading up to her fall; still worth investigating syncope with echocardiogram, pending #hip pain: continues, MRI pending; will consult ortho if fracture is noted that was not found on CT pelvis; continue bedrest until MRI hip results; cont pain control and bowel regimen #HFpEF: no acute decompensation #recent UTI: was recently treated for UTI by PCP, will contact PCP office tomorrow for sensitivities; continue bactrim; likely reason for her leukocytosis and potentially the cause of her fall (if not syncope, unclear history from patient) #elevated troponin: downtrended to 0.02 from 0.04; likely ischemic demand as she had no EKG changes or anginal sxs #HTN: hypertensive today, continue home amlodipine, adding prn IV hydralazine and will cont to monitor #ALFREDA: possibly prerenal given the elevated BUN/Cr ratio; will continue to monitor; received fluids but no continuous IVF today #psychosis: continue home depakote, zyprexxa, and prozac; patient appears stable from psych standpoint; has hx of delusions
[2018-12-15] MEDS ORDERED: hydrALAZINE IV* 20 MG/ML VIAL IV SLOW PU PRN (15:57)
[2018-12-15] MEDS ORDERED: Polyethylene Glycol 3350* 17 GM PACKET PO PRN (16:01)
[2018-12-15] MEDS: oxyCODONE TAB* 5 MG TAB PO PRN (21:54)
[2018-12-15] MEDS: Enoxaparin(*) 40 MG/0.4 ML SYR SUBCUT SCH (21:54)
[2018-12-15] MEDS: OLANzapine TAB* 5 MG PO SCH (21:54)
[2018-12-15] MEDS: Divalproex DR TAB(*) 500 MG PO SCH (21:55)
[2018-12-16 05:58] LABS: ABS Basophils 0.1 10^3/ul (0-0.2); ABS Eosinophils 0.5 10^3/ul (0-0.6); ABS Lymphocytes 1.1 10^3/ul (1.0-4.8); ABS Monocytes 1.1 10^3/ul (0-0.8); Eosinophil % 6.2 %; Hematocrit 36 % (35-47); Lymphocyte % 12.8 %; Mean Corpuscular HGB Conc 33 g/dL (31-36); Mean Corpuscular Hemoglobin 30 pg (27-31); Mean Corpuscular Volume 90 fL (80-97); Mean Platelet Volume 10.9 fL (7.4-10.4); Nucleated Red Blood Cells % 0.1; Platelet Count 162 10^3/uL (150-450); Red Blood Count 4.03 10^6 /uL (3.70-4.87); Red Cell Distribution Width 16 % (10-15); White Blood Count 8.9 10^3/uL (3.5-10.8)
[2018-12-16 06:12] LABS: BUN/Creatinine Ratio 21.8 (8-20); Calcium 8.6 mg/dL (8.6-10.3); EGFR African American 50.9 (>60); EGFR Non-African American 42.1 (>60); Potassium 4.3 mmol/L (3.5-5.0)
[2018-12-16] MEDS: Mometasone/Formoter 100/5 MDI INH SCH ×2 (08:27→19:52)
[2018-12-16] MEDS ORDERED: Perflutren Lipid Microsphere* 3 ML VIAL ONE (08:41)
[2018-12-16] MEDS ORDERED: Influenza VAC *QUAD* 2019-20* 0.5 ML SYRINGE IM ONE (09:00)
[2018-12-16] MEDS: amLODIPine TAB* 5 MG PO SCH (09:52)
[2018-12-16] MEDS: Divalproex DR TAB(*) 250 MG PO SCH (09:52)
[2018-12-16] MEDS: FLUoxetine CAP* 10 MG PO SCH (09:52)
[2018-12-16] MEDS: Sulfamethox/Trimethoprim DS 800/160* TAB PO SCH ×2 (09:53→20:49)
--- NOTE | 2018-12-16 10:29 | ECHO ---
*[facility]* [place] [address] Fax #: [phone] Transthoracic Echocardiogram Patient: Jazz Wylie : 1940 Study Date: 12/16/2018 Age: 78 Gender: F HR: 77 bpm Height: 65 in /165.1 cm BSA: 2.18 m^2 Weight: 219 lb /99.5 kg BMI: 36.5 kg/m^2 *Accelerator Systems Director: * Alexandria Howell RDCS RN *Referring Physician: * Esmer JamesonReading Physician: * Nabil Vieyra MD Indications: Syncope. History: Congestive heart failure. Aortic stenosis. PMH: Cardiomyopathy. Risk factors: Hypertension. Morbidly obese. Dyslipidemia. Conclusions Summary: - Left ventricle: Systolic function is normal. The estimated ejection fraction is 55-60%. Wall motion is normal; there are no regional wall motion abnormalities. - Right ventricle: Systolic function is normal. - Mitral valve: The findings are consistent with borderline stenosis. There is trace regurgitation. - Aortic valve: Valve mobility is mildly restricted. The findings are consistent with mild stenosis. There is trace regurgitation. The peak systolic velocity is 2.09 m/sec. The mean systolic gradient is 10.0 mm Hg. - Tricuspid valve: There is trace regurgitation. - Pericardium, extracardiac: There is no pericardial effusion. - Pulmonary arteries: Systolic pressure can not be accurately estimated. - Compared to study of 08/05/17, there is little change. Study data: Transthoracic echocardiogram. Procedure: Transthoracic echocardiography was performed. Image quality was fair. The study was technically limited due to body habitus. Intravenous Definity 2 ml was administered to enhance imaging. Complete 2D, spectral Doppler, and color flow Doppler. Location: Bedside. Patient status: Inpatient. Patient room number: 448-02. Rhythm: Normal sinus rhythm with PVC's. Findings Left ventricle: The cavity size is normal. Wall thickness is moderately increased. Systolic function is normal. The estimated ejection fraction is 55-60%. Wall motion is normal; there are no regional wall motion abnormalities. There is no consistent Doppler evidence of clinically significant diastolic dysfunction. Right ventricle: The cavity size is normal. Systolic function is normal. Left atrium: The atrium is mildly dilated. Right atrium: The atrium is normal in size. Mitral valve: The Mitral valve annulus appears calcified. The leaflets are mildly thickened. The findings are consistent with borderline stenosis. There is trace regurgitation. Aortic valve: The annulus is mildly calcified. The valve is trileaflet. The leaflets are mildly thickened. Valve mobility is mildly restricted. The findings are consistent with mild stenosis. There is trace regurgitation. Tricuspid valve: The valve is structurally normal. There is no evidence of stenosis. There is trace regurgitation. Pulmonic valve: The valve is structurally normal. There is no evidence of stenosis. There is physiologic regurgitation. Aorta: Aortic root: The aortic root is not dilated. Ascending aorta: The ascending aorta is not dilated. Aortic arch: The aortic arch is not visualized. Pericardium: There is no pericardial effusion. Pulmonary arteries: The main pulmonary artery is normal-sized. Systolic pressure can not be accurately estimated. Systemic veins: Inferior vena cava: Not well visualized. Measurements Left ventricle Value Ref Right atrium Value Ref DEVI, LAX 4.3 cm 3.8 - 5.2 ML dim, ES, A4C 3.9 cm 2.6 - 4.4 ESD, LAX 3.2 cm 2.2 - 3.5 SI dim, ES, A4C 4.7 cm 3.4 - 5.3 FS, LAX (L) 26 % 27 - 45 PW, ED (H) 1.3 cm 0.6 - 0.9 Aortic valve Value Ref IVS/PW, ED 0.98 Karen diam, ED 2.0 cm --------- E', lat karen, TDI (L) 4.6 cm/sec >=10.0 Peak v, S 2.09 m/sec --- ------ E/e', lat karen, 30 VTI, S 43.5 cm ------ --- TDI Mean grad, S 10.0 mm Hg --------- E', med karen, TDI (L) 4.6 cm/sec >=7.0 Peak grad, S 18.0 mm Hg --- ------ E/e', med karen, 30 LVOT/AV, VTI ratio 0.64 ------ --- TDI ELLIE, VTI 2.01 cm^2 --------- E', avg, TDI 4.6 cm/sec ELLIE, Vmax 1.61 cm^2 ------ --- E/e', avg, TDI (H) 30 <=14 Mitral valve Value Ref LVOT Value Ref Peak E 1.36 m/sec --------- Diam, S 2.00 cm Peak A 1.33 m/sec --------- Area 3.1 cm^2 Decel time 292 ms --------- Peak itzel, S 1.07 m/sec PHT 81 ms --------- VTI, S 27.8 cm Mean grad, D 3.0 mm Hg --------- Mean grad, S 3 mm Hg Peak grad, D 9.0 mm Hg --------- SV 87 ml Peak E/A ratio 1 --------- SV/bsa 40 ml/m^2 MVA, PHT 2.7 cm^2 --------- Ventricular septum Value Ref Pulmonic valve Value Ref IVS, ED (H) 1.3 cm 0.6 - 0.9 Peak v, S 0.99 m/sec --------- Peak grad, S 4.0 mm Hg --------- Right ventricle Value Ref DEVI, LAX 2.8 cm Aortic root Value Ref DEVI minor ax, 3.4 cm 1.9 - 3.5 Root diam 3.2 cm <4.3 A4C mid Ascending aorta Value Ref Left atrium Value Ref AAo AP diam, S 3.3 cm --------- AP dim, ES 3.70 cm 2.70 - 3.80 ML dim, A4C 4.1 cm SI dim, A4C 5.3 cm Vol/bsa, ES, 1-p 27 ml/m^2 11 - 40 A4C Vol/bsa, ES, A/L (H) 37 ml/m^2 16 - 34 Legend: (L) and (H) santos values outside specified reference range. Prepared and electronically signed by Nabil Vieyra MD 12/16/2018 10:28
[2018-12-16] MEDS: oxyCODONE TAB* 5 MG TAB PO PRN (17:59)
--- NOTE | 2018-12-16 19:49 | PN ---
Subjective Date of Service: 12/16/18 Interval History: Patient continues to have left hip pain. She says it becomes more tolerable with pain medication. Denies dizziness, chest pain, difficulty breathing, fever/ chills, abd pain. No acute events overnight. Objective Active Medications: Acetaminophen (Tylenol Tab*) 650 mg PO Q4H PRN PRN Reason: PAIN - MILD Last Admin: 12/15/18 08:26 Dose: 650 mg Amlodipine Besylate (Norvasc Tab*) 5 mg PO DAILY [facility] Last Admin: 12/16/18 09:52 Dose: 5 mg Divalproex Sodium (Depakote Dr Tab(*)) 250 mg PO QAM [facility] Last Admin: 12/16/18 09:52 Dose: 250 mg Divalproex Sodium (Depakote Dr Tab(*)) 500 mg PO BEDTIME [facility] Last Admin: 12/15/18 21:55 Dose: 500 mg Enoxaparin Sodium (Lovenox(*)) 40 mg SUBCUT Q24H [facility] Last Admin: 12/15/18 21:54 Dose: 40 mg Fluoxetine HCl (Prozac Cap*) 30 mg PO QAM [facility] Last Admin: 12/16/18 09:52 Dose: 30 mg Hydralazine HCl (Apresoline Iv*) 5 mg IV SLOW PU Q6H PRN PRN Reason: BLOOD PRESSURE Mometasone Furoate/Formoterol Fumar (Dulera 100/5 Mdi*) 2 puff INH BID [facility] Last Admin: 12/16/18 08:27 Dose: Not Given Morphine Sulfate (Morphine Inj (Syringe))*) 2 mg IV Q4H PRN PRN Reason: PAIN - SEVERE Olanzapine (Zyprexa Tab*) 15 mg PO BEDTIME [facility] Last Admin: 12/15/18 21:54 Dose: 15 mg Oxycodone HCl (Roxycodone Tab*) 5 mg PO Q6H PRN PRN Reason: PAIN - MODERATE Last Admin: 12/16/18 17:59 Dose: 5 mg Polyethylene Glycol/Electrolytes (Miralax*) 17 gm PO DAILY PRN PRN Reason: CONSTIPATION Senna (Senokot 8.6 Mg Tab*) 1 tab PO DAILY PRN PRN Reason: CONSTIPATION Trimethoprim/Sulfamethoxazole (Bactrim Ds 800/160 Tab*) 1 tab PO BID LE Stop: 12/16/18 21:01 Last Admin: 12/16/18 09:53 Dose: 1 tab Vital Signs - 8 hr 12/16/18 12/16/18 12/16/18 11:58 15:25 17:59 Temperature 98.6 F 98.2 F Pulse Rate 84 89 Respiratory 20 17 20 Rate Blood Pressure 149/64 151/70 (mmHg) O2 Sat by Pulse 90 93 Oximetry Oxygen Devices in Use Now: None Appearance: Obese, elderly white female, laying supine in bed, appearing in NAD ; restricted affect Eyes: No Scleral Icterus, - - PERRL Ears/Nose/Mouth/Throat: Mucous Membranes Moist Neck: NL Appearance and Movements; NL JVP Respiratory: Symmetrical Chest Expansion and Respiratory Effort, Clear to Auscultation Cardiovascular: NL Sounds; No Murmurs; No JVD, RRR Abdominal: - - abd soft, nontender, nondistended Extremities: No Edema, No Clubbing, Cyanosis, - - pain with minor passive internal/external rotation of hip Skin: No Rash or Ulcers Neurological: Alert and Oriented x 3 Result Diagrams: 12/16/18 05:20 12/16/18 05:19 Microbiology and Other Data: Microbiology 12/15/18 05:29 Aerobic Blood Culture - Preliminary Blood Venous No Growth Day 1 Anaerobic Blood Culture - Preliminary No Growth Day 1 Assess/Plan/Problems-Billing Assessment: 78 yo female with PMHx schizophrenia, HFpEF, 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 - Patient Problems (1) Fall Current Visit: Yes Status: Acute Comment: -patient poor historian and unclear if mechanical fall or syncope -echo performed during this hospitalization and is only mild and likely not cause of syncope, and no new changes in EF. Telemetry has been without arrhythmias. Would benefit from 30 day monitoring tech at discharge (2) Hip fracture Current Visit: Yes Status: Acute Code(s): S72.009A - FRACTURE OF UNSP PART OF NECK OF UNSP FEMUR, INIT SNOMED Code(s): 018735083 Comment: -CT pelvis initially without evidence of fracture, but MRI demonstrates nondisplaced left femoral neck fracture -consulted ortho, appreciate recs -remains bedrest -continue pain control and bowel regimen (3) (HFpEF) heart failure with preserved ejection fraction Current Visit: Yes Status: Acute Code(s): I50.30 - UNSPECIFIED DIASTOLIC ( CONGESTIVE) HEART FAILURE SNOMED Code(s): 556766594 Comment: -previous history of HFpEF however echo during this hospitalization shows no diastolic dysfunction -patient is euvolemic -RCRI risk is score of 0 inidcating 3.9 % 30-day risk of , NC, or cardiac arrest. She is medically optimized for surgery. (4) Elevated troponin Current Visit: Yes Status: Acute Code(s): R79.89 - OTHER SPECIFIED ABNORMAL FINDINGS OF BLOOD CHEMISTRY SNOMED Code(s): 506887663 Comment: -troponin minimally elevated to 0.04 at admission -likely ischemic demand -echocardiogram without new wall motion abnormalities (5) Schizophrenia Current Visit: Yes Status: Acute Code(s): F20.9 - SCHIZOPHRENIA, UNSPECIFIED SNOMED Code(s): 69323750 Comment: -continue prozac, depakote, zyprexa (6) ALFREDA (acute kidney injury) Current Visit: Yes Status: Acute Code(s): N17.9 - ACUTE KIDNEY FAILURE, UNSPECIFIED SNOMED Code(s): 30826569 Comment: -likely prerenal as BUN/Cr ratio increased and recent hx of UTI which was treated outpatient -improving (7) Hypertension Current Visit: Yes Status: Acute Code(s): I10 - ESSENTIAL (PRIMARY) HYPERTENSION SNOMED Code(s): 15697793 Comment: -minimally hypertensive at times -will increase amlodipine to 10mg however will decrease back to home 5mg postoperatively if surgery is pursued by orthopedics (awaiting decision) (8) Leukocytosis Current Visit: Yes Status: Acute Code(s): D72.829 - ELEVATED WHITE BLOOD CELL COUNT, UNSPECIFIED SNOMED Code(s): 618084383 Comment: -likely related to stress of fall as it is now resolved (9) UTI (urinary tract infection) Current Visit: No Status: Acute Comment: -recently outpatient treated for UTI by PCP -requesting records from PCP office -UA negative at admission -continuing bactrim and will d/c based on length of outpatient therapy once confirmed with PCP (10) DVT prophylaxis Current Visit: No Status: Acute Code(s): SPH2344 - SNOMED Code(s): 868918546 Comment: -lovenox, holding AM dose anticipating surgery per communication with Dr. Garrett (11) Full code status Current Visit: No Status: Acute Code(s): Z78.9 - OTHER SPECIFIED HEALTH STATUS SNOMED Code(s): 379115234 Status and Disposition: Inpatient, anticipating surgery tomorrow but orthopedic team needs to evaluate and discuss with patient
[2018-12-16] MEDS: Enoxaparin(*) 40 MG/0.4 ML SYR SUBCUT SCH (20:47)
[2018-12-16] MEDS: Divalproex DR TAB(*) 500 MG PO SCH (20:47)
[2018-12-16] MEDS: OLANzapine TAB* 5 MG PO SCH (20:48)
[2018-12-17] MEDS: Acetaminophen TAB* 325 MG PO PRN ×2 (07:13→13:10)
[2018-12-17] MEDS: Mometasone/Formoter 100/5 MDI INH SCH ×2 (07:48→19:47)
[2018-12-17 08:05] LABS: BUN/Creatinine Ratio 23.9 (8-20); Calcium 8.9 mg/dL (8.6-10.3); EGFR African American 54.4 (>60); Potassium 4.4 mmol/L (3.5-5.0)
--- NOTE | 2018-12-17 08:49 | CONSULT ---
Consult Consult: Please see dictated report for consult details Patient has a nondisplaced left femoral neck fracture. She agrees to ORIF L femur, DHS. This is scheduled for tomorrow morning at [address] Garrett
[2018-12-17] MEDS: amLODIPine TAB* 5 MG PO SCH (09:43)
[2018-12-17] MEDS: Divalproex DR TAB(*) 250 MG PO SCH (09:43)
[2018-12-17] MEDS: FLUoxetine CAP* 10 MG PO SCH (09:44)
--- NOTE | 2018-12-17 10:02 | CONS ---
CONSULTATION REPORT: DATE OF CONSULT: 12/17/18 ATTENDING ORTHOPEDIC PROVIDER: Dr. Car Garrett. PRIMARY CARE PROVIDER: Dr. Li. CHIEF COMPLAINT: Fall with left hip fracture. HISTORY OF PRESENT ILLNESS: Ms. Wylie is a 78-year-old female. She has a history of schizophrenia, diastolic dysfunction, nonischemic cardiomyopathy, aortic stenosis, hypertension, who fell on 12/14/18 while at home at [place]. She is unsure if she lost her balance or if she passed out, though she does report no loss of consciousness. She does not feel that she tripped associated with fall. She had no dizziness, chest pain, shortness of breath and she denies any recent illness. She denies any injuries aside from the left hip. She had immediate pain with bearing weight in the left groin. Today, she continues to have left groin pain with any movement. She reports she has had surgery in the past without any adverse effects from anesthesia. She has no history of heart attack, stroke, or blood clot. PAST MEDICAL HISTORY: Psychosis, macular degeneration, diastolic congestive heart failure, nonischemic cardiomyopathy, hypertension, aortic stenosis. PAST SURGICAL HISTORY: Shoulder surgery, tonsillectomy, neck surgery. MEDICATIONS UPON ADMISSION: 1. Bactrim DS 1 tab b.i.d. 2. Olanzapine 15 mg p.o. q.h.s. 3. Breo Ellipta 100/25 one puff inhaled daily. 4. Fluoxetine 30 mg p.o. daily. 5. Depakote DR 500 mg p.o. q.h.s. and 250 p.o. q.a.m. 6. Amlodipine 2.5 mg p.o. daily. 7. Tylenol 325 mg b.i.d. ALLERGIES: PENICILLIN. FAMILY HISTORY: Mom from [place]. Dad in [place]. SOCIAL HISTORY: The patient lives at [place]. Her Daughter in Law Phillip and Son Nba assist in decision making due to diagnosis of schizophrenia. She walks with a walker at baseline. She does not smoke, drink alcohol, or use illicit drugs. Her son, Azra, would be her healthcare proxy. REVIEW OF SYSTEMS: General: Negative for fever, chills. HEENT: Negative for headache or changes in vision. Cardiac: Negative for any chest pain or history of heart attack. Respiratory: Negative for any cough. Does have a history of shortness of breath, which is unchanged in recent history. Abdomen: No nausea, vomiting, diarrhea, or abdominal pain. : Denies any dysuria. Musculoskeletal: Positive for left hip pain. Neuro: Negative for any decreased sensation of upper and lower extremities. Hematology: Negative for history of blood clot. PHYSICAL EXAM: Vital Signs: Temperature 97.4, pulse rate 81, respiratory rate 18, oxygen saturation 93% on room air, blood pressure 146/79. General: Appears well, in no acute distress. HEENT: Normocephalic, atraumatic. Extraocular movements intact. Neck: No midline cervical tenderness. Pulmonary : Clear to auscultation bilaterally. Cardiac: S1, S2. There is an audible systolic murmur. Abdomen: Nondistended, nontender. Musculoskeletal: Bilateral upper extremities: Skin envelope intact. Able to flex and extend digits, wrist, elbow, and shoulder without pain. Lower extremities: Right lower extremity, skin envelope intact. Nontender to palpation. Able to flex and extend digits, ankle, knee, and hip without pain. Negative log roll at the hip. Left lower extremity: Skin envelope intact. Tender to palpation into the groin. Able to flex and extend the digits, ankle and knee without pain. Limited range of motion attempted at the hip. Neuro: Sensation is intact to light touch throughout bilateral upper and lower extremities. Skin: No obvious rash. DIAGNOSTIC STUDIES/LAB DATA: White blood cell count 8.9, hemoglobin 12.0, hematocrit 36, platelet count 162,000. Sodium 38, potassium 4.4, creatinine 1.17. MRI of the left hip, nondisplaced fracture of the left femoral neck with extension into the intertroch lesion and proximal shaft with possible extension into the intertroch lesion and proximal shaft. ASSESSMENT: Nondisplaced fracture of the left femoral neck, possible extension into intertrochanteric shaft region. PLAN: The patient can be on bed rest, nonweightbearing LLE. She should have mechanical and chemical DVT prophylaxis, lovenox should be held after 1700. She should also have CBC, BMP, INR prior to surgery tomorrow morning. She has already had a type and screen during this hospital stay. She has been made n.p.o. after midnight tonight and labs have been ordered. This case has been booked with OR for 7 am 12/18 and has been discussed with Dr. Car Garrett, who agrees with the assessment and plan. I have spoken with her daughter in law Phillip who is agreeable to procedure, confirms patients son Nba will be available at [phone] for consent, best number to reach him is . FILEMON DE LOS SANTOS [id number]/[facility] #: [id number] MTDJuan Jose
--- NOTE | 2018-12-17 20:18 | PN ---
Subjective Date of Service: 12/17/18 Interval History: Patient has no complaints today. She continues to have left hip pain but she says it is tolerable. Denies extremity numbness/tingling, chest pain, difficulty breathing, abd pain, fever/chills. Discussed with the patient's [id number] who is the patient's guardian. Agreeable to surgery for hip repair. Objective Active Medications: Acetaminophen (Tylenol Tab*) 650 mg PO Q4H PRN PRN Reason: PAIN - MILD Last Admin: 12/17/18 13:10 Dose: 650 mg Amlodipine Besylate (Norvasc Tab*) 10 mg PO DAILY [facility] Last Admin: 12/17/18 09:43 Dose: 10 mg Divalproex Sodium (Depakote Dr Tab(*)) 250 mg PO QAM [facility] Last Admin: 12/17/18 09:43 Dose: 250 mg Divalproex Sodium (Depakote Dr Tab(*)) 500 mg PO BEDTIME [facility] Last Admin: 12/16/18 20:47 Dose: 500 mg Enoxaparin Sodium (Lovenox(*)) 40 mg SUBCUT Q24H [facility] Last Admin: 12/16/18 20:47 Dose: 40 mg Fluoxetine HCl (Prozac Cap*) 30 mg PO QAM [facility] Last Admin: 12/17/18 09:44 Dose: 30 mg Hydralazine HCl (Apresoline Iv*) 5 mg IV SLOW PU Q6H PRN PRN Reason: BLOOD PRESSURE Mometasone Furoate/Formoterol Fumar (Dulera 100/5 Mdi*) 2 puff INH BID [facility] Last Admin: 12/17/18 19:47 Dose: 2 puff Morphine Sulfate (Morphine Inj (Syringe))*) 2 mg IV Q4H PRN PRN Reason: PAIN - SEVERE Olanzapine (Zyprexa Tab*) 15 mg PO BEDTIME [facility] Last Admin: 12/16/18 20:48 Dose: 15 mg Oxycodone HCl (Roxycodone Tab*) 5 mg PO Q6H PRN PRN Reason: PAIN - MODERATE Last Admin: 12/16/18 17:59 Dose: 5 mg Polyethylene Glycol/Electrolytes (Miralax*) 17 gm PO DAILY PRN PRN Reason: CONSTIPATION Senna (Senokot 8.6 Mg Tab*) 1 tab PO DAILY PRN PRN Reason: CONSTIPATION Vital Signs - 8 hr 12/17/18 19:47 Pulse Rate 83 Respiratory 20 Rate O2 Sat by Pulse 92 Oximetry Oxygen Devices in Use Now: None Appearance: Obese, elderly white female who appears in NAD laying in bed; restricted affect Eyes: No Scleral Icterus, - - PERRL Ears/Nose/Mouth/Throat: Mucous Membranes Moist Neck: NL Appearance and Movements; NL JVP Respiratory: Symmetrical Chest Expansion and Respiratory Effort, Clear to Auscultation Cardiovascular: NL Sounds; No Murmurs; No JVD, RRR Abdominal: - - abd soft, nontender, nondistended Extremities: No Edema, No Clubbing, Cyanosis, - - no calf tenderness Skin: No Rash or Ulcers Neurological: - - sensation to light touch grossly intact and symmetrical in b/ l LEs Result Diagrams: 12/16/18 05:20 12/17/18 07:10 Microbiology and Other Data: Microbiology 12/15/18 05:29 Aerobic Blood Culture - Preliminary Blood Venous No Growth Day 1 Anaerobic Blood Culture - Preliminary No Growth Day 1 Assess/Plan/Problems-Billing Assessment: 78 yo female with PMHx schizophrenia, HFpEF, 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 - Patient Problems (1) Hip fracture Current Visit: Yes Status: Acute Code(s): S72.009A - FRACTURE OF UNSP PART OF NECK OF UNSP FEMUR, INIT SNOMED Code(s): 039325690 Comment: -CT pelvis initially without evidence of fracture, but MRI demonstrates nondisplaced left femoral neck fracture -appreciate ortho consult. Plan for left hip hemiarthroplasty tomorrow. Consent will be attained from son who is patient's guardian. Son's is also guardian. -remains bedrest -continue pain control and bowel regimen (2) Fall Current Visit: Yes Status: Acute Comment: -patient poor historian and unclear if mechanical fall or syncope -echo performed during this hospitalization and is only mild and likely not cause of syncope, and no new changes in EF. Telemetry has been without arrhythmias. Would benefit from 30 day library monitor at discharge (3) (HFpEF) heart failure with preserved ejection fraction Current Visit: Yes Status: Acute Code(s): I50.30 - UNSPECIFIED DIASTOLIC ( CONGESTIVE) HEART FAILURE SNOMED Code(s): 870779888 Comment: -previous history of HFpEF however echo during this hospitalization shows no diastolic dysfunction -patient is euvolemic -RCRI risk is score of 0 inidcating 3.9 % 30-day risk of , MS, or cardiac arrest. She is medically optimized for surgery. (4) Schizophrenia Current Visit: Yes Status: Acute Code(s): F20.9 - SCHIZOPHRENIA, UNSPECIFIED SNOMED Code(s): 43286808 Comment: -continue prozac, depakote, zyprexa (5) ALFREDA (acute kidney injury) Current Visit: Yes Status: Acute Code(s): N17.9 - ACUTE KIDNEY FAILURE, UNSPECIFIED SNOMED Code(s): 30751966 Comment: -likely prerenal as BUN/Cr ratio increased and recent hx of UTI which was treated outpatient -continues to improve (6) Hypertension Current Visit: Yes Status: Acute Code(s): I10 - ESSENTIAL (PRIMARY) HYPERTENSION SNOMED Code(s): 41953905 Comment: -still hypertensive despite amlodipine increase, possibly related to pain. No further changes at this time (7) UTI (urinary tract infection) Current Visit: No Status: Acute Comment: -recently outpatient treated for UTI by PCP -requesting records from PCP office, still pending -UA negative at admission -continuing bactrim and will d/c based on length of outpatient therapy once confirmed with PCP (8) Elevated troponin Current Visit: Yes Status: Acute Code(s): R79.89 - OTHER SPECIFIED ABNORMAL FINDINGS OF BLOOD CHEMISTRY SNOMED Code(s): 760284365 Comment: -troponin minimally elevated to 0.04 at admission -likely ischemic demand -echocardiogram without new wall motion abnormalities (9) DVT prophylaxis Current Visit: No Status: Acute Code(s): MJW7872 - SNOMED Code(s): 649528886 Comment: -holding tonight's lovenox and tomorrow AM's dose per ortho rec (10) Full code status Current Visit: No Status: Acute Code(s): Z78.9 - OTHER SPECIFIED HEALTH STATUS SNOMED Code(s): 842563117 Status and Disposition: Inpatient, anticipating surgery tomorrow but orthopedic team needs to evaluate and discuss with patient
[2018-12-17] MEDS: Enoxaparin(*) 40 MG/0.4 ML SYR SUBCUT SCH (20:56)
[2018-12-17] MEDS: Divalproex DR TAB(*) 500 MG PO SCH (20:56)
[2018-12-17] MEDS: OLANzapine TAB* 5 MG PO SCH (20:57)
[2018-12-18] MEDS ORDERED: Bupivacaine 0.25% SDV PF* 10 ML VIAL INJ ONE (07:00)
[2018-12-18] MEDS ORDERED: Buffered Lidocaine 1% SYRIN* 1 ML/SYRINGE INTRADERM ONE ×2 (07:04→08:15)
[2018-12-18] MEDS ORDERED: Dexamethasone IV* 4 MG/ML 1 ML (4 MG) ONE (07:15)
[2018-12-18] MEDS ORDERED: Famotidine IV* 10 MG/ML 2 ML (20 mg) ONE (07:15)
[2018-12-18] MEDS ORDERED: Clindamycin 900 MG/D5W BAG(*) 900 MG/50 ML BAG IVPB ONE (07:19)
[2018-12-18] MEDS ORDERED: Ondansetron INJ* 2 MG/ML VIAL ONE (07:30)
[2018-12-18] MEDS ORDERED: Bupivacaine 0.5% SDV PF* 30ML VIAL ONE (07:30)
[2018-12-18] MEDS ORDERED: KETAMINE HCL* 50 MG/ML 10 ML VIAL ONE (07:31)
[2018-12-18] MEDS ORDERED: Midazolam* 1 MG/ML 5 ML VIAL (5 MG) ONE (07:31)
[2018-12-18] MEDS ORDERED: fentaNYL* 50 MCG/ML 2 ML VIAL (100 MCG VIAL) ONE (07:31)
[2018-12-18] MEDS ORDERED: Atracurium* 10 MG/ML 10 ML VIAL ONE (07:31)
[2018-12-18] MEDS: Mometasone/Formoter 100/5 MDI INH SCH ×2 (08:12→19:42)
[2018-12-18] MEDS ORDERED: Dexamethasone IV* 4 MG/ML 1 ML (4 MG) IV SLOW PU ONE (08:15)
[2018-12-18] MEDS ORDERED: Famotidine IV* 10 MG/ML 2 ML (20 mg) IV ONE (08:15)
[2018-12-18] MEDS ORDERED: Ondansetron INJ* 2 MG/ML VIAL IV PRN (08:16)
[2018-12-18] MEDS ORDERED: Naloxone* 0.4 MG/ML 1 ML VIAL IV PRN (08:16)
[2018-12-18] MEDS ORDERED: DiMENhydriNATE IV* 50 MG/ML VIAL IV PUSH PRN (08:16)
[2018-12-18] MEDS ORDERED: HYDROmorphone INJ1* 1 MG/ML SYRINGE IV PRN (08:16)
[2018-12-18] MEDS ORDERED: fentaNYL* 50 MCG/ML 2 ML VIAL (100 MCG VIAL) IV PRN (08:16)
[2018-12-18] MEDS ORDERED: Lactated Ringers 1000 ML Bag* 1,000 ML IV SCH (09:00)
--- NOTE | 2018-12-18 10:06 | OP ---
Operative Report - Blank - Operative Report Date of Operation: 12/18/18 Note: PATIENT: Jazz Wylie DATE OF : 1940 DATE OF SURGERY: 12/18/2018 SURGEON: Car Garrett MD CRO: FILEMON Mancini, whos assistance was necessary for positioning, retraction, help with instrumentation, and closure. ANESTHESIOLOGIST: Dr. Majano PREOPERATIVE DIAGNOSIS: Left hip fracture. POSTOPERATIVE DIAGNOSIS: Left hip fracture. PROCEDURE: Open reduction and internal fixation of the left hip fracture utilizing a sliding hip screw. ANESTHESIA: Spinal IMPLANTS: Synthes 4 hole 135 angle DHS ESTIMATED BLOOD LOSS: 100cc SPECIMENS: None. DRAIN: None TOURNIQUET TIME: None. COMPLICATIONS: None. STATUS: Stable from the operating room to the recovery room and then readmitted to the floor. INDICATIONS FOR PROCEDURE: Ms. Wylie sustained a fall with the above- mentioned injury found on MRI. Both operative and non-operative treatment alternatives were reviewed. Further, the nature and risks of surgery were reviewed in careful detail. Our discussions regarding the risks of surgery included, but were not limited to, bleeding, need for blood transfusion, infection, wound problems, displacement, malunion, nonunion, AVN, nerve injury, neuroma, RSD, persistent symptoms, need for further surgery and even the remote chance of catastrophic complication. DESCRIPTION OF PROCEDURE: The patient was seen in the preoperative holding unit and informed written consent was obtained. The appropriate extremity was marked. The patient was then brought to the operating room anesthesia was induced. The patient was then carefully positioned on the fracture table and all bony prominences were padded with great care. We fluoroscopically assessed the fracture and pulled traction to gain a reduction. A chlorhexidine-based pre- scrub was performed followed by prep and drape in standard sterile fashion with ChloraPrep. A surgical safety pause was then conducted in which we confirmed the appropriate patient, extremity, planned procedure, availability of equipment , indication and administration of prophylactic antibiotics, and DVT prophylaxis in the form of a compression boot on the non-surgical extremity. A longitudinal incision was made parallel to the femur. Subcutaneous tissues were divided in line with the skin incision. Meticulous hemostasis was obtained throughout the case with cautery. The fascia paz was divided in line with the skin incision. The vastus lateralis was gently reflected anteriorly. Great care was taken to control bleeding here and coagulate any perforators. Under fluoroscopic guidance in multiple projections, the guide pin from the Synthes DHS system was inserted up the femoral neck positioning the tip of the pin as close to the center of the femoral head as possible. The pin guide was utilized. We came slightly inferior through the central neck allowing for more central positioning in the head. The guide pin was advanced to the subchondral bone in the center of the femoral head, again confirmed in multiple projections including the AP, oblique and lateral views with the image intensifier. The length was measured with the depth gauge. Next, the triple reamer was used to ream the femoral neck and head under fluoroscopic guidance. The lag screw and plate were assembled. They were then inserted using the T handle screwdriver. We had excellent purchase and the plate sat nicely against the lateral femoral cortex. Again, fluoroscopy in multiple projections confirmed the adequacy of our positioning and alignment. We then confirmed that our tip to apex distance was under 25 mm. As such, the lateral cortical screws were drilled, measured and inserted through the plate with good purchase. Final fluoroscopy in multiple projections confirmed the adequacy of our alignment and the position of the implant. The wound was irrigated with sterile saline as it had been throughout the case. Meticulous multilayered closure including closure of the fascia paz was performed. A dry sterile dressing was applied. At this point, the patient was carefully transitioned off of the fracture table and awakened from anesthesia. There were no complications. All needle and sponge counts were correct at the end of the case. ATTESTATION: I attest I was present and scrubbed and performed the entire procedure myself. POSTOPERATIVE PLAN: The patient will be admitted back to the medical service postoperatively and may be weightbearing as tolerated and will work with physical therapy. DVT prophylaxis with Lovenox 40 mg sc daily for 1 month is recommended.
--- NOTE | 2018-12-18 11:20 | PN ---
Subjective Date of Service: 12/18/18 Interval History: Patient feeling well after surgery. She tells me she is not yet having pain, though she did have spinal anesthesia and has just arrived to the floor from the PACU. She has no complaints. She denies chest pain, difficulty breathing, fever/chills, abd pain, nausea/vomiting. Objective Active Medications: Acetaminophen (Tylenol Tab*) 650 mg PO Q4H PRN PRN Reason: PAIN - MILD Last Admin: 12/17/18 13:10 Dose: 650 mg Amlodipine Besylate (Norvasc Tab*) 10 mg PO DAILY [facility] Last Admin: 12/17/18 09:43 Dose: 10 mg Dimenhydrinate (Dramamine Iv*) 12.5 mg IV PUSH ONCE PRN PRN Reason: NAUSEA/VOMITING Divalproex Sodium (Depakote Dr Tab(*)) 250 mg PO QAM [facility] Last Admin: 12/17/18 09:43 Dose: 250 mg Divalproex Sodium (Depakote Dr Tab(*)) 500 mg PO BEDTIME [facility] Last Admin: 12/17/18 20:56 Dose: 500 mg Enoxaparin Sodium (Lovenox(*)) 40 mg SUBCUT Q24H [facility] Last Admin: 12/17/18 20:56 Dose: 40 mg Fentanyl Citrate (Fentanyl*) 25 mcg IV Q5M PRN PRN Reason: PAIN - MODERATE Fluoxetine HCl (Prozac Cap*) 30 mg PO QAM [facility] Last Admin: 12/17/18 09:44 Dose: 30 mg Hydralazine HCl (Apresoline Iv*) 5 mg IV SLOW PU Q6H PRN PRN Reason: BLOOD PRESSURE Hydromorphone HCl (Dilaudid Inj1s*) 0.1 mg IV Q5M PRN PRN Reason: PAIN - SEVERE Lactated Ringer's (Lactated Ringers 1000 Ml Bag*) 1,000 mls @ 125 mls/hr IV PER RATE [facility] Mometasone Furoate/Formoterol Fumar (Dulera 100/5 Mdi*) 2 puff INH BID [facility] Last Admin: 12/18/18 08:12 Dose: Not Given Morphine Sulfate (Morphine Inj (Syringe))*) 2 mg IV Q4H PRN PRN Reason: PAIN - SEVERE Naloxone HCl (Narcan*) 0.08 mg IV Q2M PRN PRN Reason: severe induced resp depression Olanzapine (Zyprexa Tab*) 15 mg PO BEDTIME [facility] Last Admin: 12/17/18 20:57 Dose: 15 mg Ondansetron HCl (Zofran Inj*) 4 mg IV ONCE PRN PRN Reason: NAUSEA/VOMITING Oxycodone HCl (Roxycodone Tab*) 5 mg PO Q6H PRN PRN Reason: PAIN - MODERATE Last Admin: 12/16/18 17:59 Dose: 5 mg Polyethylene Glycol/Electrolytes (Miralax*) 17 gm PO DAILY PRN PRN Reason: CONSTIPATION Senna (Senokot 8.6 Mg Tab*) 1 tab PO DAILY PRN PRN Reason: CONSTIPATION Vital Signs - 8 hr 12/18/18 12/18/18 12/18/18 03:17 09:20 09:24 Temperature 98.1 F 96.8 F Pulse Rate 92 81 85 Respiratory 16 16 Rate Blood Pressure 138/66 124/56 (mmHg) O2 Sat by Pulse 90 97 95 Oximetry 12/18/18 12/18/18 12/18/18 09:25 09:26 09:30 Temperature Pulse Rate 86 Respiratory 16 16 Rate Blood Pressure 110/79 (mmHg) O2 Sat by Pulse 95 95 95 Oximetry 12/18/18 12/18/18 12/18/18 09:31 09:35 09:45 Temperature Pulse Rate 85 84 Respiratory 16 16 Rate Blood Pressure 93/75 139/92 (mmHg) O2 Sat by Pulse 95 95 94 Oximetry 12/18/18 12/18/18 12/18/18 10:00 10:15 10:30 Temperature 96.8 F Pulse Rate 85 83 Respiratory 16 16 Rate Blood Pressure 104/84 121/69 (mmHg) O2 Sat by Pulse 94 94 95 Oximetry Oxygen Devices in Use Now: Nasal Cannula Appearance: Obese, elderly white female, laying in bed, appearing in NAD Eyes: No Scleral Icterus, - - PERRL Ears/Nose/Mouth/Throat: Mucous Membranes Moist Neck: NL Appearance and Movements; NL JVP Respiratory: Symmetrical Chest Expansion and Respiratory Effort, - - crackles in bilateral lung bases Cardiovascular: NL Sounds; No Murmurs; No JVD, RRR Abdominal: - - abd soft, nontender, nondistended Extremities: No Edema, No Clubbing, Cyanosis Skin: No Rash or Ulcers Neurological: Alert and Oriented x 3, - - sensation to light touch not intact consistent with recent spinal anesthesia; able to dorsiflex/plantarflex bilaterally Result Diagrams: 12/18/18 12:31 12/18/18 12:31 Microbiology and Other Data: Microbiology 12/15/18 05:29 Aerobic Blood Culture - Preliminary Blood Venous No Growth Day 1 Anaerobic Blood Culture - Preliminary No Growth Day 1 Assess/Plan/Problems-Billing Assessment: 78 yo female with PMHx schizophrenia, HFpEF, 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 - Patient Problems (1) Hip fracture Current Visit: Yes Status: Acute Code(s): S72.009A - FRACTURE OF UNSP PART OF NECK OF UNSP FEMUR, INIT SNOMED Code(s): 215899796 Comment: -CT pelvis initially without evidence of fracture, but MRI demonstrates nondisplaced left femoral neck fracture -s/p left hip hemiarthroplasty with Dr. Garrett today, 11/18/18 -continue pain control and bowel regimen -PT ordered, will remain bedrest until cleared from ortho or PT (2) Fall Current Visit: Yes Status: Acute Comment: -patient poor historian and unclear if mechanical fall or syncope -echo performed during this hospitalization and is only mild and likely not cause of syncope, and no new changes in EF. Telemetry has been without arrhythmias. Would benefit from 30 day satellite project site monitor at discharge (3) (HFpEF) heart failure with preserved ejection fraction Current Visit: Yes Status: Acute Code(s): I50.30 - UNSPECIFIED DIASTOLIC ( CONGESTIVE) HEART FAILURE SNOMED Code(s): 854627241 Comment: -previous history of HFpEF however echo during this hospitalization shows no diastolic dysfunction -patient with faint crackles in lungs but I believe this is attributable to atelectasis and not pulmonary edema -encouraged incentive spirometry (4) Schizophrenia Current Visit: Yes Status: Acute Code(s): F20.9 - SCHIZOPHRENIA, UNSPECIFIED SNOMED Code(s): 06857466 Comment: -continue prozac, depakote, zyprexa (5) ALFREDA (acute kidney injury) Current Visit: Yes Status: Acute Code(s): N17.9 - ACUTE KIDNEY FAILURE, UNSPECIFIED SNOMED Code(s): 27506887 Comment: -likely prerenal as BUN/Cr ratio increased and recent hx of UTI which was treated outpatient -resolved (6) Hypertension Current Visit: Yes Status: Acute Code(s): I10 - ESSENTIAL (PRIMARY) HYPERTENSION SNOMED Code(s): 24947496 Comment: -continue 10mg amlodipine -normotensive overall today (7) UTI (urinary tract infection) Current Visit: No Status: Acute Comment: -recently outpatient treated for UTI by PCP with bactrim -UA negative at admission -d/c bactrim -Urine culture obtained from PCP demonstrated pansensitive E. coli (8) Elevated troponin Current Visit: Yes Status: Acute Code(s): R79.89 - OTHER SPECIFIED ABNORMAL FINDINGS OF BLOOD CHEMISTRY SNOMED Code(s): 223326253 Comment: -troponin minimally elevated to 0.04 at admission -likely ischemic demand -echocardiogram without new wall motion abnormalities (9) DVT prophylaxis Current Visit: No Status: Acute Code(s): LGB0824 - SNOMED Code(s): 176579495 Comment: -holding tonight's lovenox and tomorrow AM's dose per ortho rec (10) Full code status Current Visit: No Status: Acute Code(s): Z78.9 - OTHER SPECIFIED HEALTH STATUS SNOMED Code(s): 103722354 Status and Disposition: Inpatient, will likely need MAGNOLIA at d/c
[2018-12-18 13:04] LABS: ABS Eosinophils 0.1 10^3/ul (0-0.6); ABS Lymphocytes 0.4 10^3/ul (1.0-4.8); ABS Monocytes 0.3 10^3/ul (0-0.8); ABS Neutrophils 11.3 10^3/ul (1.5-7.7); Eosinophil % 0.4 %; Hematocrit 38 % (35-47); Hemoglobin 12.2 g/dL (12.0-16.0); Lymphocyte % 3.5 %; Mean Corpuscular HGB Conc 33 g/dL (31-36); Mean Corpuscular Hemoglobin 29 pg (27-31); Mean Corpuscular Volume 91 fL (80-97); Mean Platelet Volume 10.7 fL (7.4-10.4); Platelet Count 203 10^3/uL (150-450); Red Blood Count 4.15 10^6 /uL (3.70-4.87); Red Cell Distribution Width 15 % (10-15); White Blood Count 12.1 10^3/uL (3.5-10.8)
[2018-12-18] MEDS: FLUoxetine CAP* 10 MG PO SCH (13:05)
[2018-12-18] MEDS: Divalproex DR TAB(*) 250 MG PO SCH (13:05)
[2018-12-18] MEDS: amLODIPine TAB* 5 MG PO SCH (13:05)
[2018-12-18] MEDS: Acetaminophen TAB* 325 MG PO PRN ×2 (13:05→22:02)
[2018-12-18] MEDS: Lactated Ringers 1000 ML Bag* 1,000 ML IV SCH (13:05)
[2018-12-18 13:11] LABS: INR 1.15 (0.82-1.09)
[2018-12-18 13:26] LABS: BUN/Creatinine Ratio 27.8 (8-20); Calcium 8.7 mg/dL (8.6-10.3); EGFR African American 59.7 (>60); EGFR Non-African American 49.3 (>60)
[2018-12-18] MEDS: Clindamycin 600 MG/D5W BAG(*) 600 MG/50 ML BAG IV SCH (16:04)
[2018-12-18] MEDS: Enoxaparin(*) 40 MG/0.4 ML SYR SUBCUT SCH (22:03)
[2018-12-18] MEDS: OLANzapine TAB* 5 MG PO SCH (22:03)
[2018-12-18] MEDS: Divalproex DR TAB(*) 500 MG PO SCH (22:44)
[2018-12-19] MEDS: Clindamycin 600 MG/D5W BAG(*) 600 MG/50 ML BAG IV SCH ×2 (00:09→08:20)
[2018-12-19] MEDS: Lactated Ringers 1000 ML Bag* 1,000 ML IV SCH (03:23)
--- NOTE | 2018-12-19 07:59 | PN ---
Progress Note - Progress Note Date of Service: 12/19/18 SOAP: Subjective: resting comfortably with no complaints of pain Objective: Vital Signs Temp Pulse Resp BP Pulse Ox 97.4 F 64 17 142/60 92 12/19/18 07:51 12/19/18 07:51 12/19/18 07:51 12/19/18 07:51 12/19/18 07:51 Laboratory Last Values WBC 12.1 10^3/uL (3.5-10.8) H 12/18/18 12:31 RBC 4.15 10^6 /uL (3.70-4.87) 12/18/18 12:31 Hgb 12.2 g/dL (12.0-16.0) 12/18/18 12:31 Hct 38 % (35-47) 12/18/18 12:31 MCV 91 fL (80-97) 12/18/18 12:31 MCH 29 pg (27-31) 12/18/18 12:31 MCHC 33 g/dL (31-36) 12/18/18 12:31 RDW 15 % (10-15) 12/18/18 12:31 Plt Count 203 10^3/uL (150-450) 12/18/18 12:31 MPV 10.7 fL (7.4-10.4) H 12/18/18 12:31 Neut % (Auto) 93.0 % 12/18/18 12:31 Lymph % (Auto) 3.5 % 12/18/18 12:31 [place] % (Auto) 2.9 % 12/18/18 12:31 Eos % (Auto) 0.4 % 12/18/18 12:31 Baso % (Auto) 0.2 % 12/18/18 12:31 Absolute Neuts (auto) 11.3 10^3/ul (1.5-7.7) H 12/18/18 12:31 Absolute Lymphs (auto) 0.4 10^3/ul (1.0-4.8) L 12/18/18 12:31 Absolute Monos (auto) 0.3 10^3/ul (0-0.8) 12/18/18 12:31 Absolute Eos (auto) 0.1 10^3/ul (0-0.6) 12/18/18 12:31 Absolute Basos (auto) 0.0 10^3/ul (0-0.2) 12/18/18 12:31 Absolute Nucleated RBC 0.0 10^3/ul 12/18/18 12:31 Nucleated RBC % 0.0 12/18/18 12:31 Giant Platelets Present 12/15/18 02:21 INR (Anticoag Therapy) 1.15 (0.82-1.09) H 12/18/18 12:31 APTT 33.2 seconds (26.0-38.0) 12/15/18 02:21 Sodium 136 mmol/L (135-145) 12/18/18 12:31 Potassium 5.0 mmol/L (3.5-5.0) 12/18/18 12:31 Chloride 104 mmol/L (101-111) 12/18/18 12:31 Carbon Dioxide 27 mmol/L (22-32) 12/18/18 12:31 Anion Gap 5 mmol/L (2-11) 12/18/18 12:31 BUN 30 mg/dL (6-24) H 12/18/18 12:31 Creatinine 1.08 mg/dL (0.51-0.95) H 12/18/18 12:31 Est GFR ( Amer) 59.7 (>60) 12/18/18 12:31 Est GFR (Non-Af Amer) 49.3 (>60) 12/18/18 12:31 BUN/Creatinine Ratio 27.8 (8-20) H 12/18/18 12:31 Glucose 159 mg/dL (70-100) H 12/18/18 12:31 Lactic Acid 1.2 mmol/L (0.5-2.0) 12/15/18 11:17 Calcium 8.7 mg/dL (8.6-10.3) 12/18/18 12:31 Total Bilirubin 0.30 mg/dL (0.2-1.0) 12/15/18 02:20 AST 16 U/L (13-39) 12/15/18 02:20 ALT 12 U/L (7-52) 12/15/18 02:20 Alkaline Phosphatase 92 U/L (34-104) 12/15/18 02:20 Troponin I 0.02 ng/mL (<0.04) 12/15/18 06:53 Total Protein 7.9 g/dL (6.4-8.9) 12/15/18 02:20 Albumin 3.7 g/dL (3.2-5.2) 12/15/18 02:20 Globulin 4.2 g/dL (2-4) H 12/15/18 02:20 Albumin/Globulin Ratio 0.9 (1-3) L 12/15/18 02:20 Urine Color Yellow 12/15/18 03:00 Urine Appearance Clear 12/15/18 03:00 Urine pH 5.0 (5-9) 12/15/18 03:00 Ur Specific [place] 1.024 (1.010-1.030) 12/15/18 03:00 Urine Protein Negative (Negative) 12/15/18 03:00 Urine Ketones Trace (Negative) A 12/15/18 03:00 Urine Blood Negative (Negative) 12/15/18 03:00 Urine Nitrate Negative (Negative) 12/15/18 03:00 Urine Bilirubin Negative (Negative) 12/15/18 03:00 Urine Urobilinogen Negative (Negative) 12/15/18 03:00 Ur Leukocyte Esterase Negative (Negative) 12/15/18 03:00 Urine Glucose Negative (Negative) 12/15/18 03:00 Urine Ascorbic Acid * (Negative) A 12/15/18 03:00 Valproic Acid 79.0 mcg/mL (50-100) 12/15/18 02:20 Blood Type O Positive 12/15/18 02:21 Antibody Screen Negative 12/15/18 02:21 incision: c/d/i PE: able to dorsi flex/plantar flex, 2+ DP pulse, intact sensation Assessment: s/p ORIF left hip; POD#1 Plan: 1) continue Abx 2) Lovenox/SCD's for DVT prophylaxis 3) WBAT- continue PT/OT 4) Hospitalist co-managing
[2018-12-19] MEDS: Mometasone/Formoter 100/5 MDI INH SCH ×3 (08:46→20:06)
[2018-12-19] MEDS: Acetaminophen TAB* 325 MG PO PRN ×3 (09:20→21:15)
[2018-12-19] MEDS: amLODIPine TAB* 5 MG PO SCH (09:20)
[2018-12-19] MEDS: FLUoxetine CAP* 10 MG PO SCH (09:21)
[2018-12-19] MEDS: Divalproex DR TAB(*) 250 MG PO SCH (09:21)
[2018-12-19 12:10] LABS: ABS Lymphocytes 0.9 10^3/ul (1.0-4.8); ABS Monocytes 1.1 10^3/ul (0-0.8); ABS Neutrophils 5.7 10^3/ul (1.5-7.7); Eosinophil % 0.3 %; Hematocrit 32 % (35-47); Hemoglobin 10.7 g/dL (12.0-16.0); Lymphocyte % 11.7 %; Mean Corpuscular HGB Conc 33 g/dL (31-36); Mean Corpuscular Hemoglobin 30 pg (27-31); Mean Corpuscular Volume 91 fL (80-97); Mean Platelet Volume 11.2 fL (7.4-10.4); Platelet Count 210 10^3/uL (150-450); Red Blood Count 3.56 10^6 /uL (3.70-4.87); Red Cell Distribution Width 15 % (10-15); White Blood Count 7.8 10^3/uL (3.5-10.8)
[2018-12-19 12:27] LABS: BUN/Creatinine Ratio 34.5 (8-20); Calcium 8.8 mg/dL (8.6-10.3); EGFR Non-African American 45.4 (>60); Potassium 4.3 mmol/L (3.5-5.0)
--- NOTE | 2018-12-19 18:46 | PN ---
Subjective Date of Service: 12/19/18 Interval History: No acute events overnight. Patient tells me she has left hip pain at time of evaluation. Tells me she otherwise feels comfortable. Denies chest pain, difficulty breathing, abd pain, nausea, fever/chills. Objective Active Medications: Acetaminophen (Tylenol Tab*) 650 mg PO Q4H PRN PRN Reason: PAIN - MILD Last Admin: 12/19/18 14:28 Dose: 650 mg Amlodipine Besylate (Norvasc Tab*) 10 mg PO DAILY [facility] Last Admin: 12/19/18 09:20 Dose: 10 mg Divalproex Sodium (Depakote Dr Tab(*)) 250 mg PO QAM [facility] Last Admin: 12/19/18 09:21 Dose: 250 mg Divalproex Sodium (Depakote Dr Tab(*)) 500 mg PO BEDTIME [facility] Last Admin: 12/18/18 22:44 Dose: 500 mg Enoxaparin Sodium (Lovenox(*)) 40 mg SUBCUT Q24H [facility] Last Admin: 12/18/18 22:03 Dose: 40 mg Fluoxetine HCl (Prozac Cap*) 30 mg PO QAM [facility] Last Admin: 12/19/18 09:21 Dose: 30 mg Hydralazine HCl (Apresoline Iv*) 5 mg IV SLOW PU Q6H PRN PRN Reason: BLOOD PRESSURE Mometasone Furoate/Formoterol Fumar (Dulera 100/5 Mdi*) 2 puff INH BID [facility] Last Admin: 12/19/18 09:24 Dose: 2 puff Morphine Sulfate (Morphine Inj (Syringe))*) 2 mg IV Q4H PRN PRN Reason: PAIN - SEVERE Olanzapine (Zyprexa Tab*) 15 mg PO BEDTIME [facility] Last Admin: 12/18/18 22:03 Dose: 15 mg Oxycodone HCl (Roxycodone Tab*) 5 mg PO Q6H PRN PRN Reason: PAIN - MODERATE Last Admin: 12/16/18 17:59 Dose: 5 mg Polyethylene Glycol/Electrolytes (Miralax*) 17 gm PO DAILY PRN PRN Reason: CONSTIPATION Senna (Senokot 8.6 Mg Tab*) 1 tab PO DAILY PRN PRN Reason: CONSTIPATION Vital Signs - 8 hr 12/19/18 11:37 Temperature 97.8 F Pulse Rate 71 Respiratory 16 Rate Blood Pressure 125/51 (mmHg) O2 Sat by Pulse 96 Oximetry Oxygen Devices in Use Now: None Appearance: Obese, elderly white female, laying in bed, appearing in NAD Eyes: No Scleral Icterus Ears/Nose/Mouth/Throat: Mucous Membranes Moist Neck: NL Appearance and Movements; NL JVP Respiratory: Symmetrical Chest Expansion and Respiratory Effort, Clear to Auscultation Cardiovascular: NL Sounds; No Murmurs; No JVD, RRR Abdominal: - - abd soft, nontender, nondistended Extremities: No Edema, No Clubbing, Cyanosis Skin: No Rash or Ulcers Neurological: Alert and Oriented x 3, - - strength 5/5 in bilateral LEs; sensation to light touch grossly intact and equal in bilateral LEs Result Diagrams: 12/19/18 11:55 12/19/18 11:55 Microbiology and Other Data: Microbiology 12/15/18 05:29 Aerobic Blood Culture - Preliminary Blood Venous No Growth Day 1 Anaerobic Blood Culture - Preliminary No Growth Day 1 Assess/Plan/Problems-Billing Assessment: 78 yo female with PMHx schizophrenia, HFpEF, 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 - Patient Problems (1) Hip fracture Current Visit: Yes Status: Acute Code(s): S72.009A - FRACTURE OF UNSP PART OF NECK OF UNSP FEMUR, INIT SNOMED Code(s): 313593283 Comment: -CT pelvis initially without evidence of fracture, but MRI demonstrates nondisplaced left femoral neck fracture -s/p left hip hemiarthroplasty with Dr. Garrett today, 11/18/18 -continue pain control and bowel regimen -PT following (2) Fall Current Visit: Yes Status: Acute Comment: -patient poor historian and unclear if mechanical fall or syncope -echo performed during this hospitalization and is only mild and likely not cause of syncope, and no new changes in EF. Telemetry has been without arrhythmias. Would benefit from 30 day monitoring and evaluation advisor at discharge (3) (HFpEF) heart failure with preserved ejection fraction Current Visit: Yes Status: Acute Code(s): I50.30 - UNSPECIFIED DIASTOLIC ( CONGESTIVE) HEART FAILURE SNOMED Code(s): 276973479 Comment: -previous history of HFpEF however echo during this hospitalization shows no diastolic dysfunction -lungs clear today (4) Schizophrenia Current Visit: Yes Status: Acute Code(s): F20.9 - SCHIZOPHRENIA, UNSPECIFIED SNOMED Code(s): 69978020 Comment: -continue prozac, depakote, zyprexa (5) Hypertension Current Visit: Yes Status: Acute Code(s): I10 - ESSENTIAL (PRIMARY) HYPERTENSION SNOMED Code(s): 22537898 Comment: -continue 10mg amlodipine -normotensive overall today (6) UTI (urinary tract infection) Current Visit: No Status: Acute Comment: -recently outpatient treated for UTI by PCP with bactrim -Urine culture obtained from PCP demonstrated pansensitive E. coli -received full course of bactrim (7) Elevated troponin Current Visit: Yes Status: Acute Code(s): R79.89 - OTHER SPECIFIED ABNORMAL FINDINGS OF BLOOD CHEMISTRY SNOMED Code(s): 846789473 Comment: -troponin minimally elevated to 0.04 at admission -likely ischemic demand -echocardiogram without new wall motion abnormalities (8) DVT prophylaxis Current Visit: No Status: Acute Code(s): TUG1257 - SNOMED Code(s): 933427127 Comment: -lovenox (9) Full code status Current Visit: No Status: Acute Code(s): Z78.9 - OTHER SPECIFIED HEALTH STATUS SNOMED Code(s): 426627144 Status and Disposition: Inpatient, pending return to [facility]
[2018-12-19] MEDS: OLANzapine TAB* 5 MG PO SCH (21:14)
[2018-12-19] MEDS: Divalproex DR TAB(*) 500 MG PO SCH (21:15)
[2018-12-19] MEDS: Enoxaparin(*) 40 MG/0.4 ML SYR SUBCUT SCH (21:15)
[2018-12-20] MEDS: oxyCODONE TAB* 5 MG TAB PO PRN ×2 (03:29→13:42)
[2018-12-20] MEDS: Senna TAB 8.6 mg* TAB PO PRN ×2 (03:29→09:46)
[2018-12-20] MEDS: Acetaminophen TAB* 325 MG PO PRN ×2 (07:36→13:42)
[2018-12-20] MEDS: amLODIPine TAB* 5 MG PO SCH (09:45)
[2018-12-20] MEDS: Divalproex DR TAB(*) 250 MG PO SCH (09:45)
[2018-12-20] MEDS: Mometasone/Formoter 100/5 MDI INH SCH (09:46)
[2018-12-20] MEDS: FLUoxetine CAP* 10 MG PO SCH (09:46)
--- NOTE | 2018-12-20 11:48 | PN ---
Progress Note - Progress Note Date of Service: 12/20/18 SOAP: Subjective: [Pt seen in bed this am. Doing well. Pain is well managed. Soreness about the hip. She denies any chest pain, SOB, nausea, vomiting. ] Objective: [dressing is c/d/i, dressing is c/d/i, no drainage or purulence. able to dorsi flex/plantar flex, 2+ DP pulse, intact sensation Vital Signs Temp 97.3 F 12/20/18 11:23 Pulse 78 12/20/18 11:23 Resp 16 12/20/18 11:23 BP 131/44 12/20/18 11:23 Pulse Ox 96 12/20/18 11:23 Intake & Output 12/19/18 12/20/18 12/20/18 18:59 06:59 18:59 Intake Total 603 300 100 Output Total 0 Balance 603 300 100 Intake: IV Fluids 18 NS 18 IVPB 55 ABX - CLINDAMYCIN 55 Oral 530 300 100 Output: Urine 0 Other: Estimated Void Medium Medium # Voids 2 1 Assessment: s/p ORIF left hip; POD#2 Plan: 1) continue Abx 2) Lovenox/SCD's for DVT prophylaxis 3) WBAT- continue PT/OT 4) Hospitalist co-managing, Possible DC to [place] today. 5) Dressing changed today.
[2018-12-20 15:45] VITALS: BP 123/47
--- NOTE | 2018-12-21 00:57 | DS ---
CC: Dr. Trinity Li * DISCHARGE SUMMARY: DATE OF ADMISSION: 12/15/18 DATE OF DISCHARGE: 12/20/18 PRIMARY CARE PROVIDER: Dr. Trinity Li. ORTHOPEDIC SURGEON: Dr. Car Garrett. ATTENDING PHYSICIAN: Dr. Chasity Xavier.* (DICTATED BY CHERIE BARRON NP) PRIMARY DIAGNOSES: 1. Nondisplaced left femoral neck fracture, status post open reduction and internal fixation. 2. Fall of unknown etiology. 3. Urinary tract infection. SECONDARY DIAGNOSES: 1. Chronic congestive heart failure with preserved ejection fraction. 2. Schizophrenia. 3. Hypertension. STUDIES WHILE IN THE HOSPITAL: 1. EKG on 12/15/18 showed normal sinus rhythm with a rate of 76, no ST changes. I will note that this EKG is of poor quality due to artifact. 2. Left hip pelvis x-ray on 12/15/18 read as no evidence for left hip or pelvic fracture. 3. Pelvis CT on 12/15/18 reads as colonic diverticulosis without diverticulitis , mild degenerative changes of the hip with joint space narrowing. Otherwise, negative CT pelvis. No fractures are identified. 4. Chest x-rays on 12/15/18 reads as constellation of findings favors bronchitis. No alveolar consolidation evident to suggest pneumonia. 5. EKG on 12/15/18 shows normal sinus rhythm with a rate of 73, no ST changes. Again, there is moderate artifact noted. 6. Transthoracic echocardiogram on 12/16/18 reads as left ventricular systolic function is normal. The estimated ejection fraction is 55% to 60%. Wall motion is normal and there is no regional wall motion abnormalities. Right ventricular systolic function is normal. Findings are consistent with borderline mitral stenosis. There is trace mitral regurgitation. Aortic valve mobility is mildly restricted. The findings are consistent with mild aortic stenosis. There is trace aortic regurgitation. There is trace tricuspid regurgitation. There is no pericardial effusion. Systolic pressure in the pulmonary artery cannot be accurately estimated. Compared to study of 08/05/17 , there is little change. 7. Left hip MRI on 12/16/18 reads as there is a nondisplaced fracture of the left femoral neck with suggested extension to the intratrochanteric region and proximal shaft. Surrounding edema/contusion is visualized. Soft tissue swelling surrounds a proximal left femur. Edema is identified within the left gluteal musculature suggestive of muscle strain and contusion. Mild intramuscular fascial edema is identified within the proximal left side. A T12 hypointense mass is identified within the right side of the uterus involving the uterine kaur/submucosal region. This is consistent with a fibroid. There is a small partial tear of the left gluteus medius tendon. There is increased signal intensity at the distal attachment of the gluteus minimus tendon on the left side and partial tear suggested, left hip arthropathy. A small linear focus of fluid was identified deep to the left iliopsoas muscle consistent with posttraumatic change at iliopsoas bursitis. Additional findings described in the body of the report. PROCEDURES WHILE IN THE HOSPITAL: 1. Left hip ORIF on 12/18/[address] Garrett. HISTORY OF PRESENT ILLNESS AND HOSPITAL COURSE: Ms. Wylie is a 78-year-old female with a past medical history of psychosis, diastolic congestive heart failure, questionable cardiomyopathy and hypertension, who presented to the emergency room on 12/15/18 after a fall and subsequent left groin pain. Please see the history and physical by Dr. Jameson for complete summary of the events leading up to this hospitalization. In short, the patient resides at [facility]. The patient was getting ready for bed when she took off her sweat shirt and fell. The cause of the fall was not clear and the patient was not able to give an accurate history. It is not clear if she lost consciousness. The patient presented to the emergency room where she had imaging as noted above. She was noted to have an elevated white blood count which was reactive and not wholesale representative of an infection. She additionally was noted to have an elevated lactic acid, again wholesale representative of a reactive response and not infection. The patient was able to ambulate a short distance in the emergency room though did have significant left groin pain and was therefore admitted by the hospitalist service. The patient was admitted for a syncopal workup. Echo was noted to be normal and there were no obvious cardiac reasons for the syncope. The patient ultimately had a MRI of the left hip due to continued pain and there was noted to be a fracture of the left femoral neck. The patient was seen by FILEMON Le from Orthopedics and the plan was made to take the patient to the operating room on 12/18/18. The patient did undergo a left hip open reduction and internal fixation on 12/18/[address] Garrett. She tolerated the procedure well and recovery was uneventful. The patient was noted to have a drop in H and H yesterday to 10.7 and 32 from 13.5 and 41 and this is wholesale representative of acute blood loss anemia secondary to surgery. There are no acute bleeding concerns at this time. Lactic acidosis resolved with IV fluids. Troponin elevated on admission resolved spontaneously and this was suspected to be secondary to demand ischemia related to the fall. White blood count also resolved spontaneously. Pain has been well managed postoperatively. The patient has worked with physical therapy and is noted to be able to ambulate independently. [facility] came to assess the patient today and determined that the patient is appropriate to return to [facility]. On exam today, the patient reports 7/10 pain in the left hip but offers no other complaints. She has a flat affect, but there are no focal neurologic deficits. Heart has a regular rate and rhythm without murmurs, rubs or gallops. Lungs are clear to auscultation without rhonchi, wheezes or rubs. There is no edema. Abdomen is soft and nontender. Physical exam is otherwise benign. Ms. Wylie is stable for discharge today. Vital signs are as follows: Temp 97.6, heart rate 78, respiratory rate 16, oxygen saturation 97% on room air, blood pressure 123/47. DISCHARGE MEDICATIONS: New medications: 1. Eliquis 2.5 mg p.o. b.i.d. 2. Oxycodone 5 mg p.o. q.6 hours p.r.n. pain. 3. Senna 1 tab p.o. daily p.r.n. constipation. Changed medication: 1. Amlodipine 10 mg p.o. daily (previously was 2.5 mg daily). Continued medications: 1. Depakote 500 mg p.o. at bedtime. 2. Depakote 250 mg p.o. every morning. 3. Fluoxetine 30 mg p.o. daily. 4. Breo Ellipta 100/25 1 puff daily. 5. Olanzapine 15 mg p.o. at bedtime. 6. Acetaminophen 325 mg p.o. b.i.d. Discontinued medication: 1. Bactrim. DISCHARGE PLAN: Ms. Wylie will be discharged back to assisted living at [facility]. Activity per Orthopedics will be weightbearing as tolerated. The patient may shower on postoperative day 3, which will be tomorrow. Dressing changes to the left hip should be daily or every other day. Diet will be regular as tolerated. Medications are as noted above. Amlodipine has been increased for blood pressure control and she has tolerated the 10 mg dose well while here in the hospital. She can continue to take oxycodone for pain which she has been taking here in the hospital and will need to be on Eliquis for 30 days postoperatively for DVT prophylaxis. She can continue her other usual medications as noted above. She will need to follow up with Dr. Garrett in 10 to 14 days and will need to call for an appointment. She should additionally follow up with Dr. Guaman at the [facility] and will need to call for an appointment. She should follow up with her primary care provider in the next 4 to 7 days. She should return to the emergency room or nearest hospital for any worsening of symptoms, shortness of breath, lightheadedness, dizziness, chest discomfort, high fevers, chills, night sweats, loss of consciousness, or any other worrisome signs or symptoms. DISCHARGE CONDITION: Stable. DISCHARGE DISPOSITION: Home. This is a summarized report of a complex medical history and hospital stay. For further details, please see the entire medical record. TIME SPENT: Approximately 50 minutes was spent on this discharge. CHERIE BARRON, PAYROLL EXAMINER [id number]/[facility] #: [id number] JOEY
== END 2018-12-20 18:45 | disposition home health service (06) | DRG 481 ==
LOC: ED 01:54 → MEDTELE 06:11 → OBSVTOIN 12-17 20:13 → SSU 12-18 10:55
PROVIDERS: ADMIT Hospitalist; ATTEND Internal Medicine
PROC: 0QS704Z Reposition Left Upper Femur with Internal Fixation Device, Open Approach (ICD-10-PCS; principal; 2018-12-18 07:30)
DX: S72.002A Fracture of unspecified part of neck of left femur, initial encounter for closed fracture (principal); I50.32 Chronic diastolic (congestive) heart failure; I42.8 Other cardiomyopathies; N17.9 Acute kidney failure, unspecified; N39.0 Urinary tract infection, site not specified; E87.2 Acidosis; D62 Acute posthemorrhagic anemia; I24.8 Other forms of acute ischemic heart disease; W18.39XA Other fall on same level, initial encounter; F20.9 Schizophrenia, unspecified; I11.0 Hypertensive heart disease with heart failure; H35.30 Unspecified macular degeneration; E66.9 Obesity, unspecified; R55 Syncope and collapse; H54.8 Legal blindness, as defined in USA; B96.20 Unspecified Escherichia coli [E. coli] as the cause of diseases classified elsewhere; E78.00 Pure hypercholesterolemia, unspecified; F41.9 Anxiety disorder, unspecified; F31.9 Bipolar disorder, unspecified; K57.30 Diverticulosis of large intestine without perforation or abscess without bleeding; I08.3 Combined rheumatic disorders of mitral, aortic and tricuspid valves; Y92.003 Bedroom of unspecified non-institutional (private) residence as the place of occurrence of the external cause; Z88.0 Allergy status to penicillin; Z68.36 Body mass index [BMI] 36.0-36.9, adult; Z23 Encounter for immunization; Z91.030 Bee allergy status; Z91.013 Allergy to seafood
CPT/HCPCS: 36415; 71046; 72192; 80048; 80053; 80164; 81003; 83605; 84484; 85025; 85610; 85730; 86850; 86900; 86901; 87040; 90686; 93005; 93306; 94640; 99284; A9270-GY; C1713; C1776; C8929; G0378; G8978-GP-CJ; G8979-GP-CI; J1100; J1650; J2250; J2405; J3010; J3490

== ENCOUNTER 2020-10-05 09:53 | Inpatient (IN) ==
[2020-10-05 11:51] LABS: Hematocrit 36 % (35-47); Hemoglobin 11.7 g/dL (12.0-16.0); Mean Corpuscular HGB Conc 32 g/dL (31-36); Mean Corpuscular Hemoglobin 27 pg (27-31); Mean Corpuscular Volume 84 fL (80-97); Mean Platelet Volume 11.1 fL (7.4-10.4); Platelet Count 242 10^3/uL (150-450); Red Blood Count 4.29 10^6 /uL (3.70-4.87); Red Cell Distribution Width 17 % (10-15); White Blood Count 13.8 10^3/uL (3.5-10.8)
[2020-10-05 12:10] LABS: ALT 28 U/L (7-52); Albumin 3.3 g/dL (3.2-5.2); Albumin/Globulin Ratio 0.8 (1-3); Alkaline Phosphatase 90 U/L (35-149); Blood Urea Nitrogen 23 mg/dL (6-24); C Reactive Protein 94.59 mg/L (<8.01); CO2 Carbon Dioxide 28 mmol/L (22-32); Calcium 8.5 mg/dL (8.6-10.3); Chloride 104 mmol/L (101-111); EGFR African American 54.1 (>60); EGFR Non-African American 44.7 (>60); Globulin 3.9 g/dL (2-4); Glucose 108 mg/dL (70-100); Sodium 139 mmol/L (135-145); Total Protein 7.2 g/dL (6.4-8.9); Troponin I 0.01 ng/mL (<0.03)
[2020-10-05] MEDS ORDERED: Iodixanol (CONTRAST) 320 MG/ML 100 ML SDV IV ONE (12:13)
[2020-10-05 12:17] LABS: ABS Basophils 0.1 10^3/ul (0-0.2); ABS Lymphocytes 0.3 10^3/ul (1.0-4.8); ABS Monocytes 2.3 10^3/ul (0-0.8); ABS Neutrophils 11.1 10^3/ul (1.5-7.7); Eosinophil % 0.2 %; Lymphocyte % 2.5 %
[2020-10-05 12:47] LABS: Anion Gap 7 mmol/L (2-11)
[2020-10-05] MEDS ORDERED: Calcium Carb (TUMS) 500 mg CHEW TAB PO PRN (15:13)
[2020-10-05] MEDS ORDERED: Senna TAB 8.6 mg TAB PO PRN (15:13)
[2020-10-05] MEDS ORDERED: Remdesivir 100 mg Vial 200 MG in NS 0.9% 250 ml 210 ML IV ONE (16:00)
[2020-10-05 19:17] LABS: INR 1.2 (0.86-1.15)
[2020-10-06 06:18] LABS: INR 1.24 (0.86-1.15)
[2020-10-06 06:44] LABS: Albumin 3.2 g/dL (3.2-5.2); Albumin/Globulin Ratio 0.9 (1-3); C Reactive Protein 124.7 mg/L (<8.01); Calcium 8.6 mg/dL (8.6-10.3); EGFR African American 71.4 (>60); Globulin 3.5 g/dL (2-4); Potassium 4.1 mmol/L (3.5-5.0); Total Bilirubin 0.3 mg/dL (0.2-1.0); Total Protein 6.7 g/dL (6.4-8.9)
[2020-10-06] MEDS: Mometasone/Formoter 100/5 MDI INH SCH ×2 (07:10→19:21)
[2020-10-06] MEDS: Remdesivir 100 mg Vial 100 MG in NS 0.9% 250 ml 230 ML IV SCH (23:11)
[2020-10-07 05:14] LABS: INR 1.31 (0.86-1.15)
[2020-10-07 05:29] LABS: Albumin 2.8 g/dL (3.2-5.2); Albumin/Globulin Ratio 0.8 (1-3); Calcium 7.9 mg/dL (8.6-10.3); EGFR African American 74.2 (>60); EGFR Non-African American 61.3 (>60); Globulin 3.4 g/dL (2-4); Potassium 3.8 mmol/L (3.5-5.0); Total Bilirubin 0.2 mg/dL (0.2-1.0); Total Protein 6.2 g/dL (6.4-8.9)
[2020-10-07] MEDS: Mometasone/Formoter 100/5 MDI INH SCH (09:02)
[2020-10-07] MEDS: Remdesivir 100 mg Vial 100 MG in NS 0.9% 250 ml 230 ML IV SCH (22:18)
[2020-10-08] MEDS: Mometasone/Formoter 100/5 MDI INH SCH ×3 (03:01→20:43)
[2020-10-08 06:19] LABS: INR 1.22 (0.86-1.15)
[2020-10-08 06:23] LABS: Albumin 2.8 g/dL (3.2-5.2); Albumin/Globulin Ratio 0.9 (1-3); C Reactive Protein 24.72 mg/L (<8.01); Calcium 7.7 mg/dL (8.6-10.3); EGFR African American 85.2 (>60); EGFR Non-African American 70.4 (>60); Globulin 3.2 g/dL (2-4); Potassium 3.7 mmol/L (3.5-5.0); Total Bilirubin 0.2 mg/dL (0.2-1.0)
[2020-10-08 06:35] LABS: ABS Lymphocytes 0.9 10^3/ul (1.0-4.8); ABS Neutrophils 3.1 10^3/ul (1.5-7.7); Hematocrit 33 % (35-47); Hemoglobin 10.6 g/dL (12.0-16.0); Lymphocyte % 17.5 %; Mean Corpuscular HGB Conc 32 g/dL (31-36); Mean Corpuscular Hemoglobin 27 pg (27-31); Mean Corpuscular Volume 85 fL (80-97); Mean Platelet Volume 11.1 fL (7.4-10.4); Nucleated Red Blood Cells % 0.1; Platelet Count 191 10^3/uL (150-450); Red Blood Count 3.87 10^6 /uL (3.70-4.87); Red Cell Distribution Width 18 % (10-15); White Blood Count 4.9 10^3/uL (3.5-10.8)
[2020-10-08] MEDS: Albuterol HFA INHALER 8 gm MDI INH PRN (20:45)
[2020-10-08] MEDS: Remdesivir 100 mg Vial 100 MG in NS 0.9% 250 ml 230 ML IV SCH (21:47)
[2020-10-09 08:32] LABS: INR 1.12 (0.86-1.15)
[2020-10-09 08:43] LABS: Albumin 2.9 g/dL (3.2-5.2); Albumin/Globulin Ratio 0.8 (1-3); Calcium 7.9 mg/dL (8.6-10.3); EGFR African American 86.4 (>60); EGFR Non-African American 71.4 (>60); Globulin 3.7 g/dL (2-4); Total Bilirubin 0.2 mg/dL (0.2-1.0); Total Protein 6.6 g/dL (6.4-8.9)
[2020-10-09] MEDS: Mometasone/Formoter 100/5 MDI INH SCH ×2 (10:34→20:57)
[2020-10-09] MEDS: Albuterol HFA INHALER 8 gm MDI INH PRN (21:01)
[2020-10-09] MEDS: Remdesivir 100 mg Vial 100 MG in NS 0.9% 250 ml 230 ML IV SCH (22:43)
[2020-10-10 07:15] LABS: Urine Appearance Cloudy; Urine Bilirubin Negative (Negative); Urine Blood Negative (Negative); Urine Color Straw; Urine Glucose Negative (Negative); Urine Ketones Negative (Negative); Urine Nitrite Negative (Negative); Urine Protein Negative (Negative); Urine Specific Gravity 1.009 (1.002-1.030); Urine Urobilinogen Negative (Negative)
[2020-10-10 07:51] LABS: Hematocrit 35 % (35-47); Hemoglobin 11.6 g/dL (12.0-16.0); Mean Corpuscular HGB Conc 33 g/dL (31-36); Mean Corpuscular Hemoglobin 28 pg (27-31); Mean Corpuscular Volume 84 fL (80-97); Mean Platelet Volume 10.4 fL (7.4-10.4); Platelet Count 193 10^3/uL (150-450); Red Cell Distribution Width 17 % (10-15); White Blood Count 5.5 10^3/uL (3.5-10.8)
[2020-10-10 07:56] LABS: INR 1.14 (0.86-1.15)
[2020-10-10 08:00] LABS: Albumin 2.8 g/dL (3.2-5.2); Total Bilirubin 0.2 mg/dL (0.2-1.0)
[2020-10-10 08:06] LABS: Albumin/Globulin Ratio 0.8 (1-3); EGFR African American 97.9 (>60); EGFR Non-African American 80.9 (>60); Globulin 3.3 g/dL (2-4); Total Protein 6.1 g/dL (6.4-8.9)
[2020-10-10] MEDS: Mometasone/Formoter 100/5 MDI INH SCH ×2 (08:51→19:24)
[2020-10-10 10:41] LABS: ABS Lymphocytes 1.2 10^3/ul (1.0-4.8); ABS Monocytes 0.7 10^3/ul (0-0.8); ABS Neutrophils 3.7 10^3/ul (1.5-7.7); Eosinophil % 0.3 %
[2020-10-11] MEDS: Mometasone/Formoter 100/5 MDI INH SCH ×2 (07:57→19:24)
[2020-10-11] MEDS: Enoxaparin 40 MG/0.4 ML SYR SUBCUT SCH (16:07)
[2020-10-12] MEDS: Mometasone/Formoter 100/5 MDI INH SCH ×2 (09:24→19:05)
[2020-10-12] MEDS: Enoxaparin 40 MG/0.4 ML SYR SUBCUT SCH (10:00)
[2020-10-13] MEDS: Mometasone/Formoter 100/5 MDI INH SCH ×2 (07:35→19:16)
[2020-10-13] MEDS: Enoxaparin 40 MG/0.4 ML SYR SUBCUT SCH (08:02)
[2020-10-14] MEDS: Mometasone/Formoter 100/5 MDI INH SCH (07:54)
[2020-10-14] MEDS: Enoxaparin 40 MG/0.4 ML SYR SUBCUT SCH (09:17)
[2020-10-14 12:15] VITALS: BP 141/59
== END 2020-10-14 13:25 | disposition home health service (06) | DRG 177 ==
LOC: ED 09:53 → MED 15:06 → SUATTDRO 15:06 → MED 21:39
PROVIDERS: ADMIT Hospitalist; ATTEND Internal Medicine